=== PATIENT | female | born 1960 | race Caucasian/White ===

== ENCOUNTER → 2016-08-07 | Outpatient (CLI) | payer BC ==
[~2016-08-07] MED LIST: ASPI1TAB PO; ASPI81CH PO; CALCTAB88 PO; CALCTAB97 PO; DRIS50002 PO; FAMO1TAB11 PO; FLUO10CA8 PO; FLUO10CA9 PO; HAIR1TAB2 PO; LIPI10TA PO; LISI5TAB PO; LOPR50TA PO; METO50TA2 PO; MULTCAP PO; NO HISTORICAL MEDS; POTA10CA32 PO; VITA100T20 PO; VITA400C35 PO; VITA500046 PO; VITA500T3 PO; VITACHTA PO
== END ==
LOC: M SLEEP 08:16
PROVIDERS: ATTEND Nurse Practitioner Adult Health
DX: G47.30 Sleep apnea, unspecified (principal); R40.0 Somnolence

== ENCOUNTER 2016-08-16 10:38 | Emergency (ER) | payer BC ==
--- NOTE | 2016-08-16 12:49 | EDDOCDS ---
Nurse's Notes [facility] Name: Margo Hendrickson Age: 55 yrs Sex: Female : 1960 Arrival Date: 08/16/2016 Time: 10:38 Bed PR Private MD: Taqueria Peres Diagnosis: Pain in ankle and joints of foot-RIGHT Presentation: 08/16 10:47 Presenting complaint: Patient states: she has had a problem with her right ankle for kcs several weeks - anything she tries at home is not making it any better - no known injury. Adult Sepsis Screening: The patient does not have new or worsening altered mentation. Patient's respiratory rate is less than 22. Systolic blood pressure is greater than 100. Patient has a qSOFA score of 0- Negative Sepsis Screen. Suicide/Homicide risk assessment- the patient denies having any suicidal and/or homicidal ideations and does not present with any other emotional, behavioral or mental health complaints. Status: Patient is not a administrative services officer or dependent. Transition of care: patient was not received from another setting of care. 10:47 Acuity: SHAHAB Level 4 kcs 10:47 Method Of Arrival: Walkin/Carried/Asstd kcs Triage Assessment: 10:50 General: Appears comfortable, well developed, well nourished, well groomed, Behavior is kcs cooperative, pleasant. Pain: Location: right ankle Pain currently is 5 out of 10 on a pain scale. At worst was 7 out of 10 on a pain scale. HIV screening NA for this visit Offered previously. Neurological: Level of Consciousness is awake, alert. Respiratory: Airway is patent Respiratory effort is even, unlabored. Derm: Skin is intact, is healthy with good turgor, Skin is dry, Skin is normal. 12:48 Musculoskeletal: No deficits noted. rs3 Historical: - Allergies: No known drug Allergies; - Home Meds: 1. aspirin 81 mg Oral tab 1 tab once daily 2. atorvastatin 40 mg oral tab 1 tab once daily 3. Calcium Citrate + D 630 mg- 500 iu oral daily 4. ferrous fumarate oral once daily 5. Flintstones Tab Chew 100 mcg oral chew daily 6. fluoxetine 10 mg oral tab once daily 7. metoprolol tartrate 50 mg Oral tab 1 tab once daily 8. misoprostol 200 mcg oral tab daily 9. vitamin b12 500 mcg daily - PMHx: bleeding ulcers; CVA; Hepatitis; Hypertension; - PSHx: Cholecystectomy; Tonsillectomy; Gastric Bypass; - Social history: Smoking status: Patient states former smoker of tobacco. No barriers to communication noted, The patient speaks fluent Uzbek. - Family history: Not pertinent. - : The pt / caregiver states he / she is not on anticoagulants. Home medication list is obtained from the patient, [employer] import data. - Exposure Risk Screening:: None identified. Screenin:46 Screening information is obtained from the patient. Fall risk: No risks identified. rs3 Assistance ADL's: requires no assistance with activities of daily living. Abuse/DV Screen: The patient / caregiver reports he/she is: not in a situation that causes fear, pain or injury. Nutritional screening: No deficits noted. Advance Directives: Currently, there is no health care proxy. home support is adequate. Assessment: 12:46 General: Appears in no apparent distress. Pain: Complains of pain in medial aspect of rs3 right heel and heel of right foot. Awake, alert, oriented. Skin warm and dry. Moves all extremities. Bilateral breath sounds clear. Respirations unlabored. Abdomen soft, non-tender. No apparent distress. The patient / caregiver is instructed regarding the plan of care and ED course. Physical assessment to be completed by PA/ED. Vital Signs: 10:40 BP 142 / 94; Pulse 82; Resp 16; Temp 98.6; Pulse Ox 97% ; Weight 103.87 kg; Height 5 cmb ft. 7 in. (170.18 cm); Pain 6/10; 12:42 BP 154 / 91; Pulse 67; Resp 16; Temp 96.8(O); Pulse Ox 98% on R/A; Pain 5/10; jrd 10:40 Body Mass Index 35.87 (103.87 kg, 170.18 cm) cmb Vitals: 10:40 Log In Time: August 16, 2016 at 10:38. cmb ED Course: 10:39 Patient visited by Grace Sweet. cmb 10:39 Patient moved to Waiting cmb 10:40 Taqueria Peres MD is Private Physician. cmb 10:40 Patient moved to Pre RCE cmb 10:48 Triage Initiated kcs 11:35 Patient moved to Triage 3 jrd 11:59 Dian Lagos [facility]-C [facility]. dt4 11:59 Efren Rosado MD is Attending Physician. dt4 11:59 Patient visited by Dian Lagos PA-C. dt4 12:10 Patient moved to TR1 rs3 12:35 [facility] is Referral Physician. dt4 12:36 Patient moved to PR2 / mk4 12:42 Patient visited by Silverio Montez PCA. jrd 12:44 [facility] Payment Agreement was scanned into [employer] and attached to record. lg 12:47 No IV's were initiated during this patient's visit. No procedures done that require rs3 assistance. 12:48 Accompanied by Family Member, Patient has correct armband on for positive rs3 identification. Order Results: There are currently no results for this order. Outcome: 12:35 Discharge ordered by Provider. dt4 12:47 The following High Risk Discharge criteria are identified: None. Discharged to home rs3 ambulatory. Condition: stable. Discharge instructions given to patient, Instructed on discharge instructions, follow up and referral plans. medication usage, Demonstrated understanding of instructions, medications, Pt was receptive of discharge instructions/ teaching. No special radiology studies were completed. 12:47 Discharge Assessment: patient administered narcotics - no. The following High Risk rs3 Discharge criteria are identified: None. Discharged to home with family. Property :Personal belongings accompany Pt. 12:48 Patient left the ED. rs3 Signatures: Angelica Feldman RN RN [facility] Wes Simpson, Reg Reg Mercedes Hernández RN RN rs3 Grace Sweet Margaret, RN RN [facility] Dian Lagos PA-C PA-C dt4 Silverio Montez PCA PCA jrd [facility]
--- NOTE | 2016-08-16 12:49 | EDDOCDS ---
Physician Documentation [facility] Name: Marog Hendrickson Age: 55 yrs Sex: Female : 1960 Arrival Date: 08/16/2016 Time: 10:38 Bed PR Private MD: Taqueria Peres Disposition: 08/16/16 12:35 Discharged to Home/Self Care. Impression: Pain in ankle and joints of foot - RIGHT. - Condition is Stable. - Discharge Instructions: Ankle Pain. - Medication Reconciliation, Local Pharmacy Hours form. - Follow up: Emergency Department; When: As needed; Reason: Worsening of conditions. Follow up: [facility]; When: Tomorrow; Reason: Wound/Symptom Recheck, Recheck today's complaints, Continuance of care. - Problem is new. - Symptoms are unchanged. - Notes: THERE WAS SOME CHANGED OF ARTHRITIS AND A HEEL SPUR ON YOUR XRAYS TODAY, BUT NO OTHER ABNORMALITY. PLEASE FOLLOW UP WITH ORTHO TOMORROW AND LET THEM KNOW YOU WERE SEEN IN THE ER TODAY. Historical: - Allergies: No known drug Allergies; - Home Meds: 1. aspirin 81 mg Oral tab 1 tab once daily 2. atorvastatin 40 mg oral tab 1 tab once daily 3. Calcium Citrate + D 630 mg- 500 iu oral daily 4. ferrous fumarate oral once daily 5. Flintstones Tab Chew 100 mcg oral chew daily 6. fluoxetine 10 mg oral tab once daily 7. metoprolol tartrate 50 mg Oral tab 1 tab once daily 8. misoprostol 200 mcg oral tab daily 9. vitamin b12 500 mcg daily - PMHx: bleeding ulcers; CVA; Hepatitis; Hypertension; - PSHx: Cholecystectomy; Tonsillectomy; Gastric Bypass; - Social history: Smoking status: Patient states former smoker of tobacco. No barriers to communication noted, The patient speaks fluent Bermudian. - Family history: Not pertinent. - : The pt / caregiver states he / she is not on anticoagulants. Home medication list is obtained from the patient, [employer] import data. - Exposure Risk Screening:: None identified. Vital Signs: 08/16 10:40 BP 142 / 94; Pulse 82; Resp 16; Temp 98.6; Pulse Ox 97% ; Weight 103.87 kg / 228.99 cmb lbs; Height 5 ft. 7 in. (170.18 cm); Pain 6/10; 12:42 BP 154 / 91; Pulse 67; Resp 16; Temp 96.8(O); Pulse Ox 98% on R/A; Pain 5/10; jrd 10:40 Body Mass Index 35.87 (103.87 kg, 170.18 cm) cmb MDM: 12:10 Ankle, Complete Ordered. EDMS 12:31 Financial registration complete. lg 12:44 [facility] Payment Agreement was scanned into [employer] and attached to record. lg Signatures: Dispatcher Med[employer] EDMS Angelica Feldman RN RN kcs Wes Simpson, Reg Reg lg Mercedes Hernández RN RN rs3 Dian Lagos, SUNSHINE PAPraveena dt4 The chart was reviewed and I authenticate all verbal orders and agree with the evaluation and treatment provided.Attachments: 12:44 [facility] Payment Agreement lg MTDD
--- NOTE | 2016-08-16 17:27 | REP ---
4 view right ankle series 08/16/2016 Indication: Right ankle pain Findings: There is no acute fracture, subluxation, or dislocation in right ankle. Small amount of spurring is noted in medial malleolus. There is a large plantar calcaneal spur. Impression: no fracture or dislocation. Osteoarthritic changes as above Signed by Marisa Martinez MD 08/16/2016 05:18 P
--- NOTE | 2016-08-18 13:49 | EDDOCDS ---
Nurse's Notes [facility] Name: Margo Hendrickson Age: 55 yrs Sex: Female : 1960 Arrival Date: 08/16/2016 Time: 10:38 Bed PR Private MD: Taqueria Peres Diagnosis: Pain in ankle and joints of foot-RIGHT Presentation: 08/16 10:47 Presenting complaint: Patient states: she has had a problem with her right ankle for kcs several weeks - anything she tries at home is not making it any better - no known injury. Adult Sepsis Screening: The patient does not have new or worsening altered mentation. Patient's respiratory rate is less than 22. Systolic blood pressure is greater than 100. Patient has a qSOFA score of 0- Negative Sepsis Screen. Suicide/Homicide risk assessment- the patient denies having any suicidal and/or homicidal ideations and does not present with any other emotional, behavioral or mental health complaints. Status: Patient is not a travel services professional or dependent. Transition of care: patient was not received from another setting of care. 10:47 Acuity: SHAHAB Level 4 kcs 10:47 Method Of Arrival: Walkin/Carried/Asstd kcs Triage Assessment: 10:50 General: Appears comfortable, well developed, well nourished, well groomed, Behavior is kcs cooperative, pleasant. Pain: Location: right ankle Pain currently is 5 out of 10 on a pain scale. At worst was 7 out of 10 on a pain scale. HIV screening NA for this visit Offered previously. Neurological: Level of Consciousness is awake, alert. Respiratory: Airway is patent Respiratory effort is even, unlabored. Derm: Skin is intact, is healthy with good turgor, Skin is dry, Skin is normal. 12:48 Musculoskeletal: No deficits noted. rs3 Historical: - Allergies: No known drug Allergies; - Home Meds: 1. aspirin 81 mg Oral tab 1 tab once daily 2. atorvastatin 40 mg oral tab 1 tab once daily 3. Calcium Citrate + D 630 mg- 500 iu oral daily 4. ferrous fumarate oral once daily 5. Flintstones Tab Chew 100 mcg oral chew daily 6. fluoxetine 10 mg oral tab once daily 7. metoprolol tartrate 50 mg Oral tab 1 tab once daily 8. misoprostol 200 mcg oral tab daily 9. vitamin b12 500 mcg daily - PMHx: bleeding ulcers; CVA; Hepatitis; Hypertension; - PSHx: Cholecystectomy; Tonsillectomy; Gastric Bypass; - Social history: Smoking status: Patient states former smoker of tobacco. No barriers to communication noted, The patient speaks fluent Ukrainian. - Family history: Not pertinent. - : The pt / caregiver states he / she is not on anticoagulants. Home medication list is obtained from the patient, [employer] import data. - Exposure Risk Screening:: None identified. Screenin:46 Screening information is obtained from the patient. Fall risk: No risks identified. rs3 Assistance ADL's: requires no assistance with activities of daily living. Abuse/DV Screen: The patient / caregiver reports he/she is: not in a situation that causes fear, pain or injury. Nutritional screening: No deficits noted. Advance Directives: Currently, there is no health care proxy. home support is adequate. Assessment: 12:46 General: Appears in no apparent distress. Pain: Complains of pain in medial aspect of rs3 right heel and heel of right foot. Awake, alert, oriented. Skin warm and dry. Moves all extremities. Bilateral breath sounds clear. Respirations unlabored. Abdomen soft, non-tender. No apparent distress. The patient / caregiver is instructed regarding the plan of care and ED course. Physical assessment to be completed by PA/ED. Vital Signs: 10:40 BP 142 / 94; Pulse 82; Resp 16; Temp 98.6; Pulse Ox 97% ; Weight 103.87 kg; Height 5 cmb ft. 7 in. (170.18 cm); Pain 6/10; 12:42 BP 154 / 91; Pulse 67; Resp 16; Temp 96.8(O); Pulse Ox 98% on R/A; Pain 5/10; jrd 10:40 Body Mass Index 35.87 (103.87 kg, 170.18 cm) cmb Vitals: 10:40 Log In Time: August 16, 2016 at 10:38. cmb ED Course: 10:39 Patient visited by Grace Sweet. cmb 10:39 Patient moved to Waiting cmb 10:40 Taqueria Peres MD is Private Physician. cmb 10:40 Patient moved to Pre RCE cmb 10:48 Triage Initiated kcs 11:35 Patient moved to Triage 3 jrd 11:59 Dian Lagos PA-C is PHCP. dt4 11:59 Efren Rosado MD is Attending Physician. dt4 11:59 Patient visited by Dian Lagos PA-C. dt4 12:10 Patient moved to TR1 rs3 12:35 [facility] is Referral Physician. dt4 12:36 Patient moved to PR2 / mk4 12:42 Patient visited by Silverio Montez PCA. jrd 12:44 [facility] Payment Agreement was scanned into [employer] and attached to record. lg 12:47 No IV's were initiated during this patient's visit. No procedures done that require rs3 assistance. 12:48 Accompanied by Family Member, Patient has correct armband on for positive rs3 identification. 17:33 Ankle, Complete Returned. EDMO 08/17 10:16 T-Sheet-- Draft Copy was scanned into [employer] and attached to record. gb Order Results: Radiology Order: Ankle, Complete Test: Ankle, Complete REASON FOR EXAMINATION: right ankle pain; 4 view right ankle series 08/16/2016; ; Indication: Right ankle pain; ; Findings: There is no acute fracture, subluxation, or dislocation in right; ankle. Small amount of spurring is noted in medial malleolus. There is a large; plantar calcaneal spur.; ; Impression: no fracture or dislocation. Osteoarthritic changes as above; ; ; ; ; Signed by; Marisa Martinez MD 08/16/2016 05:18 P; Outcome: 08/16 12:35 Discharge ordered by Provider. dt4 12:47 The following High Risk Discharge criteria are identified: None. Discharged to home rs3 ambulatory. Condition: stable. Discharge instructions given to patient, Instructed on discharge instructions, follow up and referral plans. medication usage, Demonstrated understanding of instructions, medications, Pt was receptive of discharge instructions/ teaching. No special radiology studies were completed. 12:47 Discharge Assessment: patient administered narcotics - no. The following High Risk rs3 Discharge criteria are identified: None. Discharged to home with family. Property :Personal belongings accompany Pt. 12:48 Patient left the ED. rs3 Signatures: Dispatcher MedHost EDMS Angelica Feldman RN RN Traci Owen, Reg Reg gb Wes Simpson, Reg Reg lg Mercedes Hernández RN RN rs3 Grace Sweet cmb Krissy Zuluaga RN RN mk4 Dian Lagos, SUNSHINE PAEarnestC dt4 Silverio Montez, KAVYA [employer]UOR[employer]CENT LAMP REPLACER jrd Chart Complete MTDD
--- NOTE | 2016-08-18 13:49 | EDDOCDS ---
Physician Documentation [facility] Name: Margo Hendrickson Age: 55 yrs Sex: Female : 1960 Arrival Date: 08/16/2016 Time: 10:38 Bed PR Private MD: Taqueria Peres Disposition: 08/16/16 12:35 Discharged to Home/Self Care. Impression: Pain in ankle and joints of foot - RIGHT. - Condition is Stable. - Discharge Instructions: Ankle Pain. - Medication Reconciliation, Local Pharmacy Hours form. - Follow up: Emergency Department; When: As needed; Reason: Worsening of conditions. Follow up: [facility]; When: Tomorrow; Reason: Wound/Symptom Recheck, Recheck today's complaints, Continuance of care. - Problem is new. - Symptoms are unchanged. - Notes: THERE WAS SOME CHANGED OF ARTHRITIS AND A HEEL SPUR ON YOUR XRAYS TODAY, BUT NO OTHER ABNORMALITY. PLEASE FOLLOW UP WITH ORTHO TOMORROW AND LET THEM KNOW YOU WERE SEEN IN THE ER TODAY. Historical: - Allergies: No known drug Allergies; - Home Meds: 1. aspirin 81 mg Oral tab 1 tab once daily 2. atorvastatin 40 mg oral tab 1 tab once daily 3. Calcium Citrate + D 630 mg- 500 iu oral daily 4. ferrous fumarate oral once daily 5. Flintstones Tab Chew 100 mcg oral chew daily 6. fluoxetine 10 mg oral tab once daily 7. metoprolol tartrate 50 mg Oral tab 1 tab once daily 8. misoprostol 200 mcg oral tab daily 9. vitamin b12 500 mcg daily - PMHx: bleeding ulcers; CVA; Hepatitis; Hypertension; - PSHx: Cholecystectomy; Tonsillectomy; Gastric Bypass; - Social history: Smoking status: Patient states former smoker of tobacco. No barriers to communication noted, The patient speaks fluent Micronesian. - Family history: Not pertinent. - : The pt / caregiver states he / she is not on anticoagulants. Home medication list is obtained from the patient, [employer] import data. - Exposure Risk Screening:: None identified. Vital Signs: 08/16 10:40 BP 142 / 94; Pulse 82; Resp 16; Temp 98.6; Pulse Ox 97% ; Weight 103.87 kg / 228.99 cmb lbs; Height 5 ft. 7 in. (170.18 cm); Pain 6/10; 12:42 BP 154 / 91; Pulse 67; Resp 16; Temp 96.8(O); Pulse Ox 98% on R/A; Pain 5/10; jrd 10:40 Body Mass Index 35.87 (103.87 kg, 170.18 cm) cmb MDM: 12:10 Ankle, Complete Ordered. EDMS 12:31 Financial registration complete. lg 12:44 [facility] Payment Agreement was scanned into [employer] and attached to record. lg 08/17 10:16 T-Sheet-- Draft Copy was scanned into [employer] and attached to record. gb Signatures: Dispatcher [employer] EDMS Angelica Feldman RN RN kcs Traci Choudhary, Reg Reg gb Wes Simpson, Reg Reg lg Mercedes Hernández RN RN rs3 Dian Lagos, SUNSHINE PAPraveena dt4 The chart was reviewed and I authenticate all verbal orders and agree with the evaluation and treatment provided.Attachments: 08/16 12:44 [facility] Payment Agreement lg 08/17 10:16 T-Sheet-- Draft Copy gb Chart Complete MTDD
--- NOTE | 2016-08-18 13:49 | EDDOCDS ---
Physician Documentation [facility] Name: Margo Hendrickson Age: 55 yrs Sex: Female : 1960 Arrival Date: 08/16/2016 Time: 10:38 Bed PR Private MD: Taqueria Peres Disposition: 08/16/16 12:35 Discharged to Home/Self Care. Impression: Pain in ankle and joints of foot - RIGHT. - Condition is Stable. - Discharge Instructions: Ankle Pain. - Medication Reconciliation, Local Pharmacy Hours form. - Follow up: Emergency Department; When: As needed; Reason: Worsening of conditions. Follow up: [facility]; When: Tomorrow; Reason: Wound/Symptom Recheck, Recheck today's complaints, Continuance of care. - Problem is new. - Symptoms are unchanged. - Notes: THERE WAS SOME CHANGED OF ARTHRITIS AND A HEEL SPUR ON YOUR XRAYS TODAY, BUT NO OTHER ABNORMALITY. PLEASE FOLLOW UP WITH ORTHO TOMORROW AND LET THEM KNOW YOU WERE SEEN IN THE ER TODAY. Historical: - Allergies: No known drug Allergies; - Home Meds: 1. aspirin 81 mg Oral tab 1 tab once daily 2. atorvastatin 40 mg oral tab 1 tab once daily 3. Calcium Citrate + D 630 mg- 500 iu oral daily 4. ferrous fumarate oral once daily 5. Flintstones Tab Chew 100 mcg oral chew daily 6. fluoxetine 10 mg oral tab once daily 7. metoprolol tartrate 50 mg Oral tab 1 tab once daily 8. misoprostol 200 mcg oral tab daily 9. vitamin b12 500 mcg daily - PMHx: bleeding ulcers; CVA; Hepatitis; Hypertension; - PSHx: Cholecystectomy; Tonsillectomy; Gastric Bypass; - Social history: Smoking status: Patient states former smoker of tobacco. No barriers to communication noted, The patient speaks fluent Liberian. - Family history: Not pertinent. - : The pt / caregiver states he / she is not on anticoagulants. Home medication list is obtained from the patient, [employer] import data. - Exposure Risk Screening:: None identified. Vital Signs: 08/16 10:40 BP 142 / 94; Pulse 82; Resp 16; Temp 98.6; Pulse Ox 97% ; Weight 103.87 kg / 228.99 cmb lbs; Height 5 ft. 7 in. (170.18 cm); Pain 6/10; 12:42 BP 154 / 91; Pulse 67; Resp 16; Temp 96.8(O); Pulse Ox 98% on R/A; Pain 5/10; jrd 10:40 Body Mass Index 35.87 (103.87 kg, 170.18 cm) cmb MDM: 12:10 Ankle, Complete Ordered. EDMS 12:31 Financial registration complete. lg 12:44 [facility] Payment Agreement was scanned into [employer] and attached to record. lg 08/17 10:16 T-Sheet-- Draft Copy was scanned into [employer] and attached to record. gb Signatures: Dispatcher [employer] EDMS Angelica Feldman RN RN kcs Traci Choduhary, Reg Reg gb Wes Simpson, Reg Reg lg Mercedes Hernández RN RN rs3 Dian Lagos, SUNSHINE PAPraveena dt4 The chart was reviewed and I authenticate all verbal orders and agree with the evaluation and treatment provided.Attachments: 08/16 12:44 [facility] Payment Agreement lg 08/17 10:16 T-Sheet-- Draft Copy gb Chart Complete MTDD
== END 2016-08-16 12:48 | disposition home or self-care (01) ==
LOC: M ED 10:38
DX: M25.571 Pain in right ankle and joints of right foot (principal); M19.071 Primary osteoarthritis, right ankle and foot; M25.774 Osteophyte, right foot; I10 Essential (primary) hypertension; K75.9 Inflammatory liver disease, unspecified; K27.4 Chronic or unspecified peptic ulcer, site unspecified, with hemorrhage; Z87.891 Personal history of nicotine dependence; Z86.73 Personal history of transient ischemic attack (TIA), and cerebral infarction without residual deficits; Z79.899 Other long term (current) drug therapy; Z79.82 Long term (current) use of aspirin

== ENCOUNTER → 2016-10-23 | Outpatient (CLI) | payer BC ==
[~2016-10-23] MED LIST changes: +ASPI81TA85 PO; +ATOR40TA PO; +IRON50TA PO
--- NOTE | 2016-10-23 11:25 | REP ---
Chest two views HISTORY: Sleep apnea Comparison: 03/16/2016 The lungs are clear. The heart is normal in size. The pulmonary vasculature is normal in appearance. The bony structure is intact. IMPRESSION: No acute disease. Signed by Mckay Snell MD 10/23/2016 11:17 A
[2016-10-23 12:17] LABS: MEAN CORPUSCULAR HEMOGLOBIN 26.3 pg (27.0-33.0); MEAN CORPUSCULAR VOLUME 82.3 fl (80.0-96.0); RED CELL DISTRIBUTION WIDTH 13.6 % (11.5-14.5); WHITE BLOOD COUNT 5.2 K/mm3 (4.0-10.0)
[2016-10-23 12:22] LABS: INR 0.99
[2016-10-23 12:29] LABS: ALBUMIN 3.7 GM/DL (3.2-5.2); ALBUMIN/GLOBULIN RATIO 1.28 (1.00-1.93); ALKALINE PHOSPHATASE 132 U/L (45-117); ALT/SGPT 41 U/L (12-78); ANION GAP 6 MEQ/L (8-16); AST/SGOT 24 U/L (15-37); BILIRUBIN,TOTAL 0.4 MG/DL (0.2-1.0); BLOOD UREA NITROGEN 11 MG/DL (7-18); CALCIUM LEVEL 9.1 MG/DL (8.5-10.1); CARBON DIOXIDE LEVEL 29 MEQ/L (21-32); CHLORIDE LEVEL 107 MEQ/L (98-107); CREATININE FOR GFR 0.74 MG/DL (0.55-1.02); GLOMERULAR FILTRATION RATE > 60.0 (>51); GLUCOSE, FASTING 98 MG/DL (70-105); POTASSIUM SERUM 4.2 MEQ/L (3.5-5.1); SODIUM LEVEL 142 MEQ/L (136-145); TOTAL PROTEIN 6.6 GM/DL (6.4-8.2)
--- NOTE | 2016-10-23 22:20 | ECGEPIP ---
Stationary ECG Study [facility] Test Date: 2016-10-23 Pat Name: MICH DAVIS Department: Room: - Gender: F [employer]: PHILIPP : 1960 Requested By: Ina Barlow Order Number: [id number] Reading MD: Tasha Starkey Measurements Intervals [place] Rate: 57 P: 39 IN: 170 QRS: 15 QRSD: 110 T: 48 QT: 400 QTc: 392 Interpretive Statements SINUS BRADYCARDIA SIMILAR 03/16/16 Electronically Signed On 10-23-2016 22:19:55 EDT by Tasha Starkey
== END ==
LOC: M ADMPAT 10:22
PROVIDERS: ATTEND Orthopaedic Surgery
DX: M25.561 Pain in right knee (principal); I10 Essential (primary) hypertension; K76.0 Fatty (change of) liver, not elsewhere classified; Z86.73 Personal history of transient ischemic attack (TIA), and cerebral infarction without residual deficits; Z79.899 Other long term (current) drug therapy

== ENCOUNTER 2016-11-05 08:05 | Emergency (ER) | payer BC ==
[~2016-11-05] VITALS: Ht 170.2 cm; Wt 103.4 kg
[2016-11-05] MEDS ORDERED: VITA50003 PO (08:36)
[2016-11-05] MEDS ORDERED: BACT800T5 PO (08:36)
[2016-11-05] MEDS ORDERED: VITAPOW41 XX (08:36)
[2016-11-05] MEDS ORDERED: [UNRECOGNIZED DRUG - CODE] XX (08:36)
[2016-11-05] MEDS ORDERED: VITA100L PO (08:36)
[2016-11-05] MEDS ORDERED: SUCR1TA PO (08:36)
[2016-11-05] MEDS ORDERED: OMEP40CA2 PO (08:36)
--- NOTE | 2016-11-05 10:26 | REP ---
CHEST, TWO VIEWS: COMPARISON: 10/23/2016 There is no evidence of acute infiltrate. No pleural effusion is seen. The heart is normal in size. The mediastinal silhouette is unremarkable. The visualized osseous structures are intact. IMPRESSION: No acute pulmonary disease. Signed by Eleazar Byrnes MD 11/05/2016 03:53 P
[2016-11-05 11:19] VITALS: BP 130/69
== END 2016-11-05 11:54 | disposition home or self-care (01) ==
LOC: M ED 09:35
DX: B34.9 Viral infection, unspecified (principal)

== ENCOUNTER 2016-11-06 12:15 | Inpatient (IN) | payer BC ==
[~2016-11-06] VITALS: Ht 170.2 cm; Wt 103.9 kg
[~2016-11-06 12:15] MED LIST changes: +BACT800T5 PO; +OMEP40CA2 PO; +SUCR1TA PO; +VITA100L PO; +VITA50003 PO; +VITAPOW41 XX; +[UNRECOGNIZED DRUG - CODE] XX
--- NOTE | 2016-12-13 17:03 | HPE ---
DATE OF ADMISSION: 12/19/2016 HISTORY OF PRESENT ILLNESS: This is a pleasant female with continuing symptomatic right knee osteoarthritis. She has consented for right total knee arthroplasty per Dr. Cain Middleton. Apparently her surgery was rescheduled. She has not had any significant changes since being cleared by Dr. Koenig on 12/10/2016. I did review his documentation. ALLERGIES: None known to drugs. MEDICAL PROBLEM LIST: Includes symptomatic right knee osteoarthritis, hypertension, hyperlipidemia, depression, migraine, CVA with minimal residual paresthesia 05/2013, atherosclerotic cardiovascular disease (ASCD) 10-year risk 3.6 from 03/2016, morbid obesity status post Peggy-en-Y 01/2015, metabolic syndrome, chronic endocervicitis, she notes being Factor V Leiden positive. SURGICAL HISTORY: Pertinent for laparoscopic cholecystectomy with repair of incisional hernia 01/2006, removal of umbilicus secondary to endometriosis 1974, Peggy-en-Y laparoscopic with liver biopsy Dr. Thompson with pathology report positive for hepatitis, viral hepatitis serology negative and other laboratories evaluated for chronic liver function tests (LFTs) were nondiagnostic, colonoscopy 15 years ago, excision of bleeding lesion of umbilicus, tonsillectomy, EGD two ulcers gastrojejunal anastomosis 12/2015. FAMILY HISTORY: Positive for pancreatic cancer, congestive heart failure (CHF), myocardial infarction (NC), diabetes mellitus type 2, coronary artery disease, ovarian cancer, hypertension. SOCIAL HISTORY: She is former social smoker that quit to 2013. She has 1-2 drinks on a typical day intermittently, denies illicit drugs. MEDICATION LIST: Includes: - fluoxetine 10 mg one orally daily - vitamin D 50,000 units one capsule orally weekly - atorvastatin calcium 40 mg one tablet orally once a day - vitamin B12 1000 one tablet orally once a day - Flintstones complete 60 mg chewable one tablet orally once a day - taking aspirin 81 mg chewable one tablet orally once a day - [facility] vitamin E 400 units capsule one capsule orally once a day - Lopressor 50 mg tablet orally once a day - omeprazole 40 mg capsule delayed release one capsule orally once a day - iron 325 (65 FE mg tablet one tablet orally once a day - Carafate 1 gram tablet one tablet on empty stomach orally twice a day - bisoprolol 200 mcg tablet one tablet with food orally four times a day - Cytotec PHYSICAL EXAMINATION: Height 66.25 inches, weight 225, temperature 97.8. She is a pleasant, obese female. She is in no acute distress. Alert and oriented times three. Mood and affect are appropriate. She is ambulating with favoring left lower extremity. No gross antalgia about the right lower extremity. Skin temperature, color, sensory and motor within normal limits. Not effused, ecchymotic or erythematous. Not hot to touch. Knee range of motion is with crepitance to flexion and extension. Positive medial joint line tenderness. PFJ is congruent, static, dynamic. No popliteal fossa, mass or pain. Hip range of motion is not irritable, limited through internal and external range of motion. Normocephalic. Chest rises symmetrically. Lungs clear to auscultation. Negative murmur, gallops or rubs. Bowel sounds times four, soft, nontender. Labs were reviewed. Nasal and sinus culture showed heavy Moraxella catarrhalis and the patient was started on Bactrim DS double-strength times five days. Urinalysis was unremarkable. Anion gap 6. Alkaline phosphatase 132. Mean corpuscular hemoglobin 26.3. Chest x-ray no acute cardiopulmonary disease as read by Dr. Snell through [facility] test [id number]. EKG read by Dr. Tasha Starkey shows sinus bradycardia. IMPRESSION: 1. Symptomatic right knee osteoarthritis. 2. The patient consented for right total knee arthroplasty per Dr. Cain Middleton. 3. Medical optimization per Dr. Koenig. 4. On-call the operating room (OR) 2 grams IV Kefzol in OR. 5. Sequential compression device (SCD) and thromboembolism deterrents (TEDs) in OR. 6. The patient noted that she does have Factor V Leiden. 7. She is going to take Bactrim DS times 5 days per heavy Moraxella catarrhalis on nasal and sinus culture. The patient understands and agrees with the plan. IZABELA
[2016-12-19] MEDS ORDERED: LR 1,000 ML IV ONE (11:00)
[2016-12-19] MEDS ORDERED: LR 1,000 ML IV SCH ×2 (11:00→16:45)
[2016-12-19] MEDS ORDERED: ACETAMINOPHEN 500 MG TAB PO ONE (11:15)
[2016-12-19] MEDS ORDERED: LOPR1TAB6 PO (11:23)
[2016-12-19] MEDS ORDERED: METOPROLOL TART 25 MG TABLET As Ordered ONE (11:30)
[2016-12-19] MEDS ORDERED: METOPROLOL TART 25 MG TABLET PO ONE (11:45)
[2016-12-19] MEDS ORDERED: fentaNYL 100 MCG/2 ML INJECTION (J3010) As Ordered ONE ×3 (12:13→14:37)
[2016-12-19] MEDS ORDERED: MIDAZOLAM INJ 2 MG/2 ML VIAL (J2250) As Ordered ONE ×2 (12:13→14:37)
[2016-12-19] MEDS ORDERED: ceFAZolin 1GM INJ (J0690) As Ordered ONE (12:21)
[2016-12-19] MEDS ORDERED: BUPIVACAINE HCL 0.5% 10 ML VIAL As Ordered ONE (12:47)
[2016-12-19] MEDS ORDERED: ROPIvacaine 0.5% 30 ML INJECTION (J2795) As Ordered ONE (12:47)
[2016-12-19] MEDS ORDERED: TRANEXAMIC ACID 100 MG/ML 10ML VIAL As Ordered ONE (12:49)
[2016-12-19] MEDS ORDERED: EPINEPHrine INJ 1 MG/ML 1ML VIAL/AMP As Ordered ONE (12:49)
[2016-12-19] MEDS ORDERED: fentaNYL 100 MCG/2 ML INJECTION (J3010) IV ONE (14:00)
[2016-12-19] MEDS ORDERED: MIDAZOLAM INJ 2 MG/2 ML VIAL (J2250) IV ONE (14:00)
[2016-12-19] MEDS ORDERED: ROPIvacaine 0.5% 30 ML INJECTION (J2795) ONE (14:27)
[2016-12-19] MEDS ORDERED: LIDOCAINE 1% MDV 20ML VIAL ONE (14:27)
[2016-12-19] MEDS ORDERED: dexameTHASONE 10 MG/1 ML VIAL PRES.FREE (J1100) ONE (14:27)
[2016-12-19] MEDS ORDERED: PROPOFOL 500 MG/50 ML VIAL As Ordered ONE (14:37)
[2016-12-19] MEDS ORDERED: METOCLOPRAMIDE INJ 10MG/2ML VIAL (J2765) As Ordered ONE (14:53)
[2016-12-19] MEDS ORDERED: dexameTHASONE 4 MG/ML 1ML VIAL (J1100) As Ordered ONE (14:53)
[2016-12-19] MEDS ORDERED: ONDANSETRON 4MG/2ML VIAL (J2405) As Ordered ONE (14:53)
[2016-12-19] MEDS ORDERED: LIDOCAINE 2% INJ 100 MG/5 ML SDV (FOR ANES.) As Ordered ONE (15:09)
[2016-12-19] MEDS ORDERED: FLEET ENEMA PR PRN (16:45)
[2016-12-19] MEDS ORDERED: ACETAMINOPHEN TAB 650MG DOSE (2X325MG) PO PRN (16:45)
[2016-12-19] MEDS ORDERED: MORPHINE 2 MG/ML 1ML SYRINGE IV PRN (16:45)
[2016-12-19] MEDS ORDERED: ONDANSETRON 4MG/2ML VIAL (J2405) IV PRN ×2 (16:45→18:00)
[2016-12-19] MEDS ORDERED: fentaNYL 100 MCG/2 ML INJECTION (J3010) IV PRN (16:45)
[2016-12-19] MEDS ORDERED: PERCOCET 5MG/325MG TAB PO PRN (16:45)
[2016-12-19 18:00] VITALS: BP 123/83
[2016-12-19] MEDS ORDERED: diphenhydrAMINE INJ 50MG/ML VIAL (J1200) IV PRN (18:00)
[2016-12-19] MEDS ORDERED: EPIDURAL/PCA KEYS XX PRN (18:00)
[2016-12-19] MEDS ORDERED: NALOXONE INJ 0.4 MG/1 ML VIAL (J2310) IV PRN (18:00)
[2016-12-19] MEDS ORDERED: NALBUPHINE HCL 10 MG/ML AMP (J2300) IV PRN (18:00)
[2016-12-19] MEDS ORDERED: MORPHINE 1MG/ML IN 0.9% NACL 100ML IV BAG IV PRN (18:00)
[2016-12-19 18:30] VITALS: BP 129/78
[2016-12-19] MEDS ORDERED: traMADol 50 MG TAB PO PRN ×2 (18:30)
[2016-12-19] MEDS: LR 1,000 ML IV SCH (18:48)
[2016-12-19 19:30] VITALS: BP 115/65
[2016-12-19 20:30] VITALS: BP 122/72
--- NOTE | 2016-12-19 20:35 | IPNPDOC ---
Subjective Date Seen The patient was seen on 12/19/16. Subjective Chief Complaint/HPI The patient is a 56-year-old female admitted with a reason for visit of Right Knee Arthritis. Events since last encounter patient status post right total knee arthroplasty elective for advanced osteoarthritis. surgery was uncomplicated, no complaints at present , no chest pain or sob , no abdominal pain , nausea or vomiting Objective Physical Examination General Exam: Positive: Alert, No Acute Distress Eye Exam: Positive: PERRLA, Conjunctiva & lids normal, EOMI, Negative: Sclera icteric ENT Exam: Positive: Atraumatic, Mucous membr. moist/pink, Pharynx Normal Neck Exam: Positive: Supple, Negative: JVD, thyromegaly Chest Exam: Positive: Clear to auscultation, Normal air movement Heart Exam: Positive: Rate Normal, Regular Rhythm, Normal S1, Normal S2, Negative: Murmurs, Rubs Abdomen Exam: Positive: Normal bowel sounds, Soft, Negative: Tenderness, Hepatospenomegaly Extremity Exam: Positive: Normal pulses, Negative: Clubbing, Cyanosis, Edema Assessment /Plan Problems (1) S/P total knee arthroplasty Problem Text: Patient to be followed by Dr Sarmiento from 12/20/16 pain control and dvt prophylaxis as per ortho protocol (2) Hypertension Status: Chronic Problem Text: continue metoprolol (3) Hyperlipidemia Status: Chronic Problem Text: continue statin (4) CAD (coronary artery disease) Status: Chronic (5) Depression Status: Chronic Problem Text: continue home meds (6) H/O: stroke with residual effects Status: Chronic (7) Gastric bypass status for obesity Status: Chronic Problem Text: continue omeprazole and sucralfate. (8) Migraine Status: Chronic Plan/VTE VTE Prophylaxis Ordered?: Yes VS, I&O, 24H, Fishbone Vital Signs/I&O Vital Signs Date Time Temp Pulse Resp B/P (MAP) Pulse Ox O2 Delivery O2 Flow Rate FiO2 12/19/16 17:05 55 18 131/72 (91) 98 Nasal Cannula 2 12/19/16 16:50 97.2 YASHIRA WARD MD December 19, 2016 17:40
[2016-12-19] MEDS ORDERED: WARFARIN SOD 5 MG TAB PO SCH (21:00)
[2016-12-19] MEDS: SUCRALFATE 1 GM TAB PO SCH (21:03)
[2016-12-19] MEDS: BACTRIM 160MG/800MG DS TAB PO SCH (21:03)
[2016-12-19 21:30] VITALS: BP 125/66
[2016-12-19 22:30] VITALS: BP 121/78
[2016-12-20 02:30] VITALS: BP 132/65
[2016-12-20] MEDS: LR 1,000 ML IV SCH (05:15)
[2016-12-20 06:00] VITALS: BP 121/74
--- NOTE | 2016-12-20 06:24 | RO ---
DATE OF PROCEDURE: 12/19/2016 PREPROCEDURE DIAGNOSIS: Right knee valgus degenerative arthritis. POSTPROCEDURE DIAGNOSIS: Right knee valgus degenerative arthritis. PROCEDURE: Right total knee arthroplasty using a size 4 narrow cruciate retaining femoral component and a size 3 tibial tray with 12.5 mm rotating platform polyethylene insert, 35 mm polyethylene button. All the components were cemented. Prosthesis made by [employer]. It was a PFC knee. SURGEON: Dr. Ina Middleton. LOCOMOTIVE ENGINEER: Jenrigoberto Castillo. ANESTHESIA: Spinal with right femoral nerve block. COMPLICATIONS: None. SPECIMENS: The joint surface. ESTIMATED BLOOD LOSS: Less than 20 mL. PROCEDURE: After antibiotics were given intravenously preoperatively and successful spinal and right femoral nerve block and then a spinal anesthetic was induced, a tourniquet was placed on the right upper thigh and not inflated and the right lower extremity was prepped and draped in the usual sterile fashion. The leg was elevated and after appropriate time out, the tourniquet was inflated and then a longitudinal incision was made for medial parapatellar approach to the knee. Bovie cautery was used to coagulate crossing vessels. Subperiosteal dissection around the proximal medial portion of the tibia and the proximal lateral portion of the tibia was provided and then a large loose body was noted in the anterior medial compartment. There was a very large loose body noted at the patellofemoral articulation. It was more of a disc shaped probably 3 cm diameter wafer of bone that was noted in the patellofemoral joint or in the lateral gutter that was removed. Patella and flexed and the knee. ACL was removed. Drill was placed down the center of the femoral canal followed by distal femoral cutting jig set for 5 degree valgus cut at 10 mm resection level for a right knee. The block was pinned into position. Distal femoral cut performed. The AP sizer jig measured for a size 4 prosthesis. The 3 degree external rotation block was drilled and then the 4-in-block applied. Anterior posterior chamfer cuts performed and taking great care to protect the surrounding soft tissues. We then exposed the proximal tibia and used the extramedullary guide to be sure that we appeared to be aligned and parallel to the mechanical axis of the tibia. We referenced out the medial tibial condyle and measured it 4 mm from that level. Secondary check with extramedullary [place] confirmed that it appeared to be parallel to the mechanical axis, thus the proximal tibial osteotomy was then performed. We then placed the alignment senior corporate recruiter laterally and performed a completion medial meniscectomy. Debridement of the posterior medial osteophytes. We then placed the alignment senior corporate recruiter medially and performed a completion lateral meniscectomy, debridement of posterior lateral osteophytes. The spacer block was sized. The 10 was a bit too loose, the 12.5 seemed the most appropriate, thus I felt the extensor flexor spaces ultimately were satisfactory and symmetric. I then exposed the proximal tibia sized for a #3 tray which was pinned into position followed by the reamer and broach followed by the trial polyethylene, then a femoral trial was placed and brought the knee into extension. She had very good stability to varus valgus stress testing both in flexion and extension. We then everted the patella with the knee in extension, performed a patellar osteotomy. She had a significant amount of dishing of the patella at the lateral facet. The saw blade just barely skirted the small dish but I felt that was small enough that cement should suffice to fill that defect. The size for a 35 patellar button, the lug holes were drilled, the trial prosthesis placed and patellofemoral tracking was anatomic. We drilled the lug holes for the femur, then removed all the trials. My food service assistant, Mrs. Jen Castillo mixed the cement on the back table as I prepared the bony surfaces for cementing with a copious amount of pulsatile lavage irrigant solution. She was also critical to the success of this difficult procedure by helping to manipulate the knee, help with soft tissue retraction, help to prepare the patient, help to close the wound, amongst many other tasks. Once the cement has been mixed and all the bony surfaces were thoroughly dried, I cemented the tibial tray and removed excess cement, placed the polyethylene, then cemented the femoral component, removed excess cement, brought the knee into extension and then cemented the patella and held it with a clamp and then removed all the excess cement and held that position in extension until the cement had hardened. While we were awaiting, we copiously pulsatile lavage irrigated out the knee joint once again and then instilled the Tranexamic acid. We then began closing the apex of the arthropathy with two #1 PDS sutures, the medial parapatellar border was closed with a #1 PDS suture, then a running double arm #1 Stratafix was used to close the rest of the capsule. Flexion and extension after closure of the capsule showed it was good and secure with excellent patellofemoral tracking and excellent range of motion. We let the tourniquet down after the capsule had been closed, irrigated between layers, closed the deep subdermal tissues with interrupted #2-0 PDS suture. The PainBuster was passed after we closed the arthrotomy. Then the skin was closed with oxana covered by Adaptic dry sterile bulky dressing. She was then transferred to the recovery room in stable condition. There were no intraoperative complications.
[2016-12-20] MEDS ORDERED: ONDANSETRON 4 MG TAB (S0181) PO PRN (06:45)
[2016-12-20] MEDS ORDERED: PERCOCET 5MG/325MG TAB PO PRN (06:45)
[2016-12-20 06:55] LABS: MEAN CORPUSCULAR HEMOGLOBIN 26.8 pg (27.0-33.0); MEAN CORPUSCULAR HGB CONC 31.6 g/dl (32.0-36.5); MEAN CORPUSCULAR VOLUME 84.9 fl (80.0-96.0); RED CELL DISTRIBUTION WIDTH 14.2 % (11.5-14.5); WHITE BLOOD COUNT 9.6 K/mm3 (4.0-10.0)
[2016-12-20 06:58] LABS: INR 1.07
[2016-12-20 07:10] LABS: ANION GAP 6 MEQ/L (8-16); BLOOD UREA NITROGEN 9 MG/DL (7-18); CALCIUM LEVEL 9.2 MG/DL (8.5-10.1); CARBON DIOXIDE LEVEL 27 MEQ/L (21-32); CHLORIDE LEVEL 108 MEQ/L (98-107); CREATININE FOR GFR 0.68 MG/DL (0.55-1.02); GLOMERULAR FILTRATION RATE > 60.0 (>51); GLUCOSE, FASTING 122 MG/DL (70-105); POTASSIUM SERUM 4.7 MEQ/L (3.5-5.1); SODIUM LEVEL 141 MEQ/L (136-145)
[2016-12-20] MEDS: MIRALAX *UNIT DOSE* 17GM PACKET PO SCH (09:00)
[2016-12-20] MEDS: OMEPRAZOLE 20 MG CAP PO SCH (09:05)
[2016-12-20] MEDS: SUCRALFATE 1 GM TAB PO SCH ×4 (09:05→22:27)
[2016-12-20] MEDS: ATORVASTATIN 20 MG TAB PO SCH (09:05)
[2016-12-20] MEDS: MOM 30ML SUSPENSION UDC PO SCH (09:05)
[2016-12-20] MEDS: SENOKOT S TAB PO SCH ×2 (09:06→22:27)
[2016-12-20] MEDS: FLUoxetine 10 MG CAP PO SCH (09:06)
[2016-12-20] MEDS: METOPROLOL TART 50 MG TAB PO SCH (09:06)
[2016-12-20] MEDS: BACTRIM 160MG/800MG DS TAB PO SCH ×2 (09:06→22:27)
--- NOTE | 2016-12-20 10:21 | REP ---
Clinical: Status post arthroplasty. Technique: AP and cross-table lateral views. Findings: The patient is status post right knee replacement with normal positioning and appearance to the femoral and tibial components. Overlying postsurgical changes appreciated. Impression: Satisfactory right knee replacement radiographs. Signed by Sinan Wheatley MD 12/20/2016 10:13 A
[2016-12-20] MEDS: PERCOCET 5MG/325MG TAB PO PRN ×3 (10:51→23:34)
[2016-12-20 14:00] VITALS: BP 118/73
--- NOTE | 2016-12-20 15:18 | IPNPDOC ---
Subjective Date Seen The patient was seen on 12/20/16. Subjective Chief Complaint/HPI The patient is a 56-year-old female admitted with a reason for visit of Right Knee Arthritis. General: Denies: Chills, Night Sweats Constitutional: Denies: Chills, Fever Eyes: Denies: Pain, Vision change ENT: Denies: Head Aches, Ear Pain Skin: Denies: Rash, Lesions Pulmonary: Denies: Dyspnea, Cough Cardiovascular: Denies: Chest Pain, Palpitations Gastrointestinal: Denies: Nausea, Vomiting Genitourinary: Denies: Dysuria, Frequency Hematologic: Denies: Bruising, Bleeding Excessively Objective Physical Examination General Exam: Positive: Alert, No Acute Distress Eye Exam: Positive: PERRLA, Conjunctiva & lids normal, EOMI, Negative: Sclera icteric ENT Exam: Positive: Atraumatic, Mucous membr. moist/pink, Pharynx Normal Neck Exam: Positive: Supple, Negative: JVD, thyromegaly Chest Exam: Positive: Clear to auscultation, Normal air movement Heart Exam: Positive: Rate Normal, Regular Rhythm, Normal S1, Normal S2, Negative: Murmurs, Rubs Abdomen Exam: Positive: Normal bowel sounds, Soft, Negative: Tenderness, Hepatospenomegaly Extremity Exam: Positive: Normal pulses, Other (Right Knee noted to be wrapped in surgical dressing. Range of motion limited secondary to recent surgery. Neurovascularly intact distally.), Negative: Clubbing, Cyanosis, Edema Assessment /Plan Problems (1) S/P total knee arthroplasty Problem Text: Patient states that she is resting comfortably and that her pain is well controlled We will defer pain management and DVT prophylaxis as per the primary orthopedic service. (2) Hypertension Status: Chronic Response to Treatment: Stable Problem Text: cont metoprolol (3) Hyperlipidemia Status: Chronic Response to Treatment: Stable Problem Text: continue statin (4) CAD (coronary artery disease) Status: Chronic Problem Text: Continue statin and metoprolol (5) Depression Status: Chronic Response to Treatment: Stable Problem Text: continue home meds (6) H/O: stroke with residual effects Status: Chronic Response to Treatment: Stable (7) Gastric bypass status for obesity Status: Chronic Problem Text: continue omeprazole and sucralfate. (8) Migraine Status: Chronic Response to Treatment: Stable Plan/VTE VTE Prophylaxis Ordered?: Yes VS, I&O, 24H, Eneida Vital Signs/I&O Vital Signs Date Time Temp Pulse Resp B/P (MAP) Pulse Ox O2 Delivery O2 Flow Rate FiO2 12/20/16 14:46 14 12/20/16 09:06 58 121/74 12/20/16 08:00 Room Air 12/20/16 06:00 97.5 96 12/19/16 17:05 2 I&O- Last 24 Hours up to 6 AM 12/20/16 05:59 Intake Total 2170 ml Output Total 850 ml Balance 1320 ml Laboratory Data 24H LABS Laboratory Tests 2 12/20/16 06:27: Prothrombin Time 14.0, Prothromb Time International Ratio 1.07, Anion Gap 6L, Glomerular Filtration Rate > 60.0, Blood Urea Nitrogen 9, Creatinine 0.68, Sodium Level 141, Potassium Level 4.7, Chloride Level 108H, Carbon Dioxide Level 27, Calcium Level 9.2 CBC/BMP Laboratory Tests 12/20/16 06:27 Red Blood Count 4.03, Mean Corpuscular Volume 84.9, Mean Corpuscular Hemoglobin 26.8 L, Mean Corpuscular Hemoglobin Concent 31.6 L, Red Cell Distribution Width 14.2, Calcium Level 9.2 JAJA VEGA MD December 20, 2016 15:17
[2016-12-20] MEDS ORDERED: WARFARIN SOD 5 MG TAB PO ONE (17:00)
[2016-12-20 22:00] VITALS: BP 108/62
[2016-12-21] MEDS: PERCOCET 5MG/325MG TAB PO PRN ×2 (04:09→09:19)
[2016-12-21 06:00] VITALS: BP 128/63
[2016-12-21 06:48] LABS: MEAN CORPUSCULAR HEMOGLOBIN 26.4 pg (27.0-33.0); MEAN CORPUSCULAR HGB CONC 31.4 g/dl (32.0-36.5); MEAN CORPUSCULAR VOLUME 83.9 fl (80.0-96.0); RED CELL DISTRIBUTION WIDTH 14.3 % (11.5-14.5); WHITE BLOOD COUNT 6.9 K/mm3 (4.0-10.0)
[2016-12-21 06:52] LABS: INR 1.39
[2016-12-21 07:04] LABS: ANION GAP 5 MEQ/L (8-16); BLOOD UREA NITROGEN 13 MG/DL (7-18); CALCIUM LEVEL 8.2 MG/DL (8.5-10.1); CARBON DIOXIDE LEVEL 27 MEQ/L (21-32); CHLORIDE LEVEL 107 MEQ/L (98-107); CREATININE FOR GFR 0.85 MG/DL (0.55-1.02); GLOMERULAR FILTRATION RATE > 60.0 (>51); GLUCOSE, FASTING 94 MG/DL (70-105); SODIUM LEVEL 139 MEQ/L (136-145)
[2016-12-21] MEDS ORDERED: PERC5TAB6 PO (08:26)
[2016-12-21] MEDS ORDERED: COUM2.5T11 PO (08:26)
[2016-12-21] MEDS: MOM 30ML SUSPENSION UDC PO SCH (09:00)
[2016-12-21] MEDS: FLUoxetine 10 MG CAP PO SCH (09:00)
[2016-12-21] MEDS: MIRALAX *UNIT DOSE* 17GM PACKET PO SCH (09:00)
[2016-12-21 09:17] VITALS: BP 128/63
[2016-12-21] MEDS: BACTRIM 160MG/800MG DS TAB PO SCH (09:17)
[2016-12-21] MEDS: ATORVASTATIN 20 MG TAB PO SCH (09:17)
[2016-12-21] MEDS: METOPROLOL TART 50 MG TAB PO SCH (09:17)
[2016-12-21] MEDS: OMEPRAZOLE 20 MG CAP PO SCH (09:17)
[2016-12-21] MEDS: SUCRALFATE 1 GM TAB PO SCH (09:18)
[2016-12-21] MEDS: SENOKOT S TAB PO SCH (09:18)
--- NOTE | 2016-12-21 13:48 | IPNPDOC ---
Subjective Date Seen The patient was seen on 12/21/16. Subjective Chief Complaint/HPI The patient is a 56-year-old female admitted with a reason for visit of Right Knee Arthritis. General: Denies: Chills, Night Sweats Constitutional: Denies: Chills, Fever Eyes: Denies: Pain, Vision change ENT: Denies: Head Aches, Ear Pain Skin: Denies: Rash, Lesions Pulmonary: Denies: Dyspnea, Cough Cardiovascular: Denies: Chest Pain, Palpitations Gastrointestinal: Denies: Nausea, Vomiting Genitourinary: Denies: Dysuria, Frequency Hematologic: Denies: Bruising, Bleeding Excessively Objective Physical Examination General Exam: Positive: Alert, No Acute Distress Eye Exam: Positive: PERRLA, Conjunctiva & lids normal, EOMI, Negative: Sclera icteric ENT Exam: Positive: Atraumatic, Mucous membr. moist/pink, Pharynx Normal Neck Exam: Positive: Supple, Negative: JVD, thyromegaly Chest Exam: Positive: Clear to auscultation, Normal air movement Heart Exam: Positive: Rate Normal, Regular Rhythm, Normal S1, Normal S2, Negative: Murmurs, Rubs Abdomen Exam: Positive: Normal bowel sounds, Soft, Negative: Tenderness, Hepatospenomegaly Extremity Exam: Positive: Normal pulses, Other (Right Knee noted to be wrapped in surgical dressing. Range of motion limited secondary to recent surgery. Neurovascularly intact distally.), Negative: Clubbing, Cyanosis, Edema Assessment /Plan Problems (1) S/P total knee arthroplasty Problem Text: Patient states that she is resting comfortably and that her pain is well controlled We will defer pain management and DVT prophylaxis as per the primary orthopedic service. (2) Hypertension Status: Chronic Response to Treatment: Stable Problem Text: cont metoprolol (3) Hyperlipidemia Status: Chronic Response to Treatment: Stable Problem Text: continue statin (4) CAD (coronary artery disease) Status: Chronic Problem Text: Continue statin and metoprolol (5) Depression Status: Chronic Response to Treatment: Stable Problem Text: continue home meds (6) H/O: stroke with residual effects Status: Chronic Response to Treatment: Stable (7) Gastric bypass status for obesity Status: Chronic Problem Text: continue omeprazole and sucralfate. (8) Migraine Status: Chronic Response to Treatment: Stable Plan/VTE VTE Prophylaxis Ordered?: Yes VS, I&O, 24H, Fishbone Vital Signs/I&O Vital Signs Date Time Temp Pulse Resp B/P (MAP) Pulse Ox O2 Delivery O2 Flow Rate FiO2 12/21/16 09:50 18 12/21/16 09:19 98 Room Air 12/21/16 09:17 70 128/63 12/21/16 06:00 98.5 12/19/16 17:05 2 I&O- Last 24 Hours up to 6 AM 12/21/16 06:00 Intake Total 1080 ml Output Total 600 ml Balance 480 ml Laboratory Data 24H LABS Laboratory Tests 2 12/21/16 06:33: Prothrombin Time 17.2H, Prothromb Time International Ratio 1.39, Anion Gap 5L, Glomerular Filtration Rate > 60.0, Blood Urea Nitrogen 13, Creatinine 0.85, Sodium Level 139, Potassium Level 4.0, Chloride Level 107, Carbon Dioxide Level 27, Calcium Level 8.2L CBC/BMP Laboratory Tests 12/21/16 06:33 Red Blood Count 3.90 L, Mean Corpuscular Volume 83.9, Mean Corpuscular Hemoglobin 26.4 L, Mean Corpuscular Hemoglobin Concent 31.4 L, Red Cell Distribution Width 14.3, Calcium Level 8.2 L JAJA VEGA MD December 21, 2016 13:48
--- NOTE | 2016-12-25 06:39 | DSES ---
DATE OF ADMISSION: 12/19/2016 DATE OF DISCHARGE: 12/21/2016 ATTENDING PHYSICIAN: Dr. Cain Middleton. ADMISSION DIAGNOSIS: Osteoarthritis right knee. OTHER DIAGNOSES: 1. Metabolic syndrome. 2. Hypertension. 3. Elevated lipids. 4. Depression. 5. Coronary artery disease. 6. Migraines. 7. History of a stroke. 8. Obesity. DISCHARGE DIAGNOSIS: Osteoarthritis right knee status post right total knee arthroplasty. OPERATION PERFORMED: Right total knee arthroplasty. HISTORY: This is a pleasant 56-year-old female with progressively worsening right knee pain and stiffness. She failed to improve with conservative management. She was admitted for elective knee replacement on the right side. HOSPITAL COURSE: The patient was admitted on day of surgery, underwent a right total knee arthroplasty which was uneventful. She did well in the postoperative period and hospital course was without complications. She was up with therapy per their protocol and her pain was controlled. On day of discharge, she was doing well, weightbearing as tolerated on right lower extremity. She will move her right knee to prevent stiffness. She will use adjusted dose Coumadin and thromboembolism deterrent stockings (TEDs) for 30 days postoperative for deep venous thrombosis (DVT) prophylaxis. She will resume her preoperative medications and diet. She was given instructions to include but not limited to wound monitoring and activity limitations. She will followup in our office in 10-14 days for surgical followup. She will use oral pain medications for pain control. Please refer to the medical record for further details.
== END 2016-12-21 13:07 | disposition home or self-care (01) | DRG 302 ==
LOC: M OR 12-19 10:51 → M MS5PR 12-19 17:18
PROVIDERS: ADMIT Orthopaedic Surgery; ATTEND Orthopaedic Surgery
PROC: 0SRC0J9 Replacement of Right Knee Joint with Synthetic Substitute, Cemented, Open Approach (ICD-10-PCS; principal; 2016-12-19 13:30)
DX: M17.11 Unilateral primary osteoarthritis, right knee (principal); D68.51 Activated protein C resistance; E88.81 Metabolic syndrome and other insulin resistance; I10 Essential (primary) hypertension; E78.5 Hyperlipidemia, unspecified; G43.909 Migraine, unspecified, not intractable, without status migrainosus; I25.10 Atherosclerotic heart disease of native coronary artery without angina pectoris; F32.9 Major depressive disorder, single episode, unspecified; Z90.49 Acquired absence of other specified parts of digestive tract; Z82.49 Family history of ischemic heart disease and other diseases of the circulatory system; Z83.3 Family history of diabetes mellitus; Z80.41 Family history of malignant neoplasm of ovary; Z80.0 Family history of malignant neoplasm of digestive organs; Z98.84 Bariatric surgery status; Z87.891 Personal history of nicotine dependence

== ENCOUNTER → 2016-12-10 | Outpatient (REF) | payer BC ==
[2016-12-10 13:45] LABS: BASO % 1.5 % (0.0-1.0); EOS # 0.3 K/mm3 (0.0-0.50); EOS % 8.3 % (0.0-3.0); LARGE UNSTAINED CELL # 0.1 K/mm3 (0.0-0.4); LARGE UNSTAINED CELL % 1.9 % (0.0-4.0); LYMPH % 27.5 % (24.0-44.0); MEAN CORPUSCULAR HEMOGLOBIN 26.3 pg (27.0-33.0); MEAN CORPUSCULAR HGB CONC 32.4 g/dl (32.0-36.5); MEAN CORPUSCULAR VOLUME 81.2 fl (80.0-96.0); MONO # 0.3 K/mm3 (0.0-0.8); MONO % 7.6 % (0.0-5.0); NEUTROPHILS # 1.9 K/mm3 (1.8-7.7); NEUTROPHILS % 53.2 % (36.0-66.0); PLATELET COUNT, AUTOMATED 171 k/mm3 (150-450); WHITE BLOOD COUNT 3.5 K/mm3 (4.0-10.0)
[2016-12-10 14:14] LABS: VITAMIN B12 LEVEL 616 PG/ML (247-911)
[2016-12-10 14:21] LABS: ALBUMIN 3.5 GM/DL (3.2-5.2); ALBUMIN/GLOBULIN RATIO 1.25 (1.00-1.93); ALKALINE PHOSPHATASE 148 U/L (45-117); ALT/SGPT 33 U/L (12-78); ANION GAP 7 MEQ/L (8-16); AST/SGOT 24 U/L (15-37); BILIRUBIN,TOTAL 0.4 MG/DL (0.2-1.0); BLOOD UREA NITROGEN 11 MG/DL (7-18); CALCIUM LEVEL 8.8 MG/DL (8.5-10.1); CARBON DIOXIDE LEVEL 29 MEQ/L (21-32); CHLORIDE LEVEL 106 MEQ/L (98-107); CREATININE FOR GFR 0.65 MG/DL (0.55-1.02); FERRITIN 19 NG/ML (8-252); GLOMERULAR FILTRATION RATE > 60.0 (>51); GLUCOSE, FASTING 102 MG/DL (70-105); MAGNESIUM LEVEL 2.2 MG/DL (1.8-2.4); PERCENT SATURATION 20.6 % (13.2-37.4); PHOSPHORUS LEVEL 3.5 MG/DL (2.5-4.9); SODIUM LEVEL 142 MEQ/L (136-145); TOTAL IRON BINDING CAPACITY 373 UG/DL (250-450); TOTAL PROTEIN 6.3 GM/DL (6.4-8.2)
[2016-12-11 11:32] LABS: PRETREATED FOLATE FOR RBCFOL 7.8 NG/ML
== END ==
LOC: M LABDRAW1 13:02
PROVIDERS: ATTEND Surgery
DX: K91.2 Postsurgical malabsorption, not elsewhere classified (principal); E55.9 Vitamin D deficiency, unspecified; Z98.84 Bariatric surgery status

== ENCOUNTER → 2016-12-25 | Outpatient (REF) | payer BC ==
[~2016-12-25] MED LIST changes: +COUM2.5T11 PO; +LOPR1TAB6 PO; +PERC5TAB6 PO
[2016-12-25 14:49] LABS: INR 1.14
== END ==
LOC: M SHH 14:21 → M LAB REF 14:21
PROVIDERS: ATTEND Nurse Practitioner Family
DX: Z79.01 Long term (current) use of anticoagulants (principal)

== ENCOUNTER → 2016-12-27 | Outpatient (REF) | payer BC ==
[2016-12-27 12:26] LABS: INR 1.26
== END ==
LOC: M SHH 11:55
PROVIDERS: ATTEND Nurse Practitioner Family
DX: Z79.01 Long term (current) use of anticoagulants (principal)

== ENCOUNTER → 2017-01-01 | Outpatient (REF) | payer BC ==
[2017-01-01 13:32] LABS: INR 1.84
== END ==
LOC: M SHH 12:51
PROVIDERS: ATTEND Nurse Practitioner Family
DX: Z79.01 Long term (current) use of anticoagulants (principal)

== ENCOUNTER → 2017-01-03 | Outpatient (REF) | payer BC ==
[2017-01-03 14:21] LABS: INR 2.25
== END ==
LOC: M SHH 13:04
PROVIDERS: ATTEND Nurse Practitioner Family
DX: Z79.01 Long term (current) use of anticoagulants (principal)

== ENCOUNTER → 2017-01-07 | Outpatient (REF) | payer BC ==
[2017-01-07 13:54] LABS: INR 2.87
== END ==
LOC: M SHH 13:31
PROVIDERS: ATTEND Nurse Practitioner Family
DX: M17.11 Unilateral primary osteoarthritis, right knee (principal)

== ENCOUNTER → 2017-01-10 | Outpatient (REF) | payer BC ==
[2017-01-10 11:34] LABS: INR 1.56
== END ==
LOC: M SHH 11:10
PROVIDERS: ATTEND Nurse Practitioner Family
DX: Z79.01 Long term (current) use of anticoagulants (principal)

== ENCOUNTER → 2017-01-14 | Outpatient (REF) | payer BC ==
[2017-01-14 12:26] LABS: INR 1.13
== END ==
LOC: M SHH 11:54
PROVIDERS: ATTEND Nurse Practitioner Family
DX: Z79.01 Long term (current) use of anticoagulants (principal)

== ENCOUNTER → 2017-01-17 | Outpatient (REF) | payer BC ==
[2017-01-17 11:45] LABS: INR 1.38
== END ==
LOC: M SHH 11:14
PROVIDERS: ATTEND Nurse Practitioner Family
DX: Z79.01 Long term (current) use of anticoagulants (principal)

== ENCOUNTER 2017-02-01 01:12 | Inpatient (IN) | payer BC ==
[~2017-02-01] VITALS: Ht 170.2 cm; Wt 102.0 kg
[~2017-02-01 01:12] MED LIST changes: -ATOR40TA PO; +ATOR40TA75 PO; -COUM2.5T11 PO; +COUM2.5T17 PO; -METO50TA2 PO; +METO50TA7 PO; +PERC5TAB12 PO; -PERC5TAB6 PO; +VITA1CAP40 PO; -VITA50003 PO
[2017-02-01 02:41] LABS: MEAN CORPUSCULAR HEMOGLOBIN 25.9 pg (27.0-33.0); MEAN CORPUSCULAR HGB CONC 31.7 g/dl (32.0-36.5); MEAN CORPUSCULAR VOLUME 81.6 fl (80.0-96.0); WHITE BLOOD COUNT 7.8 K/mm3 (4.0-10.0)
[2017-02-01 02:42] LABS: BASO # 0.1 K/mm3 (0.0-0.2); BASO % 0.8 % (0.0-1.0); EOS # 0.2 K/mm3 (0.0-0.50); EOS % 2.3 % (0.0-3.0); LARGE UNSTAINED CELL # 0.1 K/mm3 (0.0-0.4); LARGE UNSTAINED CELL % 1.7 % (0.0-4.0); LYMPH # 1.5 K/mm3 (1.5-4.5); LYMPH % 19.7 % (24.0-44.0); MONO # 0.5 K/mm3 (0.0-0.8); MONO % 6.3 % (0.0-5.0); NEUTROPHILS # 5.4 K/mm3 (1.8-7.7); PLATELET COUNT, AUTOMATED 207 k/mm3 (150-450); RED CELL DISTRIBUTION WIDTH 15.1 % (11.5-14.5)
[2017-02-01 02:44] LABS: INR 1.11
[2017-02-01 02:51] LABS: ALBUMIN/GLOBULIN RATIO 1.25 (1.00-1.93); ALKALINE PHOSPHATASE 96 U/L (45-117); ALT/SGPT 24 U/L (12-78); ANION GAP 8 MEQ/L (8-16); AST/SGOT 15 U/L (15-37); BILIRUBIN,DIRECT < 0.1 MG/DL (0.0-0.2); BILIRUBIN,TOTAL 0.3 MG/DL (0.2-1.0); BLOOD UREA NITROGEN 28 MG/DL (7-18); CALCIUM LEVEL 8.3 MG/DL (8.5-10.1); CARBON DIOXIDE LEVEL 25 MEQ/L (21-32); CHLORIDE LEVEL 111 MEQ/L (98-107); CREATININE FOR GFR 0.73 MG/DL (0.55-1.02); GLOMERULAR FILTRATION RATE > 60.0 (>51); GLUCOSE, FASTING 145 MG/DL (70-105); POTASSIUM SERUM 4.2 MEQ/L (3.5-5.1); SODIUM LEVEL 144 MEQ/L (136-145); TOTAL PROTEIN 5.4 GM/DL (6.4-8.2)
[2017-02-01] MEDS ORDERED: TYLE500T78 PO (04:13)
[2017-02-01] MEDS ORDERED: FERR325T3 PO (04:13)
[2017-02-01] MEDS ORDERED: ASPI81TA21 PO (04:13)
[2017-02-01] MEDS ORDERED: B-1210009 PO (04:13)
[2017-02-01] MEDS ORDERED: NATU400T PO (04:13)
[2017-02-01] MEDS ORDERED: VITMTA PO (04:14)
--- NOTE | 2017-02-01 04:44 | HPEPDOC ---
General Date of Admission Feb 01, 2017 at 03:51 Chief Complaint The patient is a 56-year-old female admitted with a reason for visit of Upper Gi Bleed. 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 The pt states that she woke up to use the rest room and acutely became dizzy and then fell down, she hit her head on a carpeted floor and came to seconds later, she immediately knew what had happened and where she was after the incident. She states she did urinate on herself, however this was a conscious act as she states she just couldn't hold it any longer. She was on the ground for a few minutes because she felt too weak to ambulate, finally when she did she went down stairs and had a BM and noted hemalatha/merlot colored stool in the toilet with a clot apparently floating in the water. Her sister had called EMS due to her passing out episode and she was brought to [facility]. The pt states that last night she did note some bleeding when she brushed her teeth, which she states was new, denied nose bleeds but did say she bruises easily and does have Factor V Leiden def. She had a CVA three years ago that left her with some residual deficit on her left side, and she is anticoagulated because of this. The pt denies being SOB, CP or fever and denies blood in urine and stool prior to this episode ( aside from her bleeding gastric ulcer episode one year ago when she presented with blood in her stool). She states that last year she was transferred to [facility] after arriving to [facility] because her GI doctor requested she be at [facility], there she received an upper and lower scope where they ligated a bleeding gastric ulcer and removed some benign polyps (as per pts knowledge), she has also followed with local GI doctor and was also scoped by him as well. She did recently have right knee replacement by Ortho. here in town, she doesn't think she fell on her knee and states it doesn't feel worse than what it was before the fall last night. She does admit to feeling more fatigued the past few days and notes family member have said she looks more pale than usual. Home Medications Scheduled (Calcium Citrate + 315-200 mg-Unit) 1 Tab Tab, 1 TAB PO QHS, (Reported) Alpha Tocopheryl Acid Succinat (Vitamin E) 400 Unit Tab, 400 UNIT PO DAILY, ( Reported) Aspirin (Aspir-Low) 81 Mg Tab, 81 MG PO DAILY, (Reported) Atorvastatin Calcium (Atorvastatin Calcium) 40 Mg Tab, 40 MG PO DAILY, (Reported ) Cyanocobalamin (B-12) 1,000 Mcg Tab, 1,000 MCG PO DAILY, (Reported) Ergocalciferol (Vitamin D) 50,000 Unit Cap, 50,000 MG PO QWEEK, (Reported) ON SUNDAYS Ferrous Sulfate (Ferrous Sulfate) 325 Mg Tab, 325 MG PO DAILY, (Reported) Fluoxetine Hcl (Fluoxetine) 10 Mg Cap, 10 MG PO DAILY, (Reported) Metoprolol Tartrate (Lopressor) 50 Mg Tab, 50 MG PO DAILY, (Reported) Multivitamins *[facility] STOCKED* (Thera M Plus *[facility] STOCKED*) 1 Tab Tab, 2 TAB PO DAILY, (Reported) Omeprazole (Omeprazole) 40 Mg Cap, 40 MG PO DAILY, (Reported) Scheduled PRN Acetaminophen (Tylenol Extra Strength) 500 Mg Tab, 500 MG PO Q6H PRN for PAIN, ( Reported) Allergies Coded Allergies: No Known Allergies (Verified , 01/16/06) Past Medical History Medical History CVA 3 yrs ago with left sided deficit HTN DLP hx of bleeding gastric ulcer 1 year prior Family History Significant Family History: No pertinent family hx Social History * Smoker: Denies Alcohol: Denies Drugs: denies lives with sister Review of Symptoms Constitutional: Denies: Chills, Fever, Malaise, Night Sweats Eyes: Denies: Pain, Vision change ENT: Denies: Head Aches Skin: Reports: Bruising, Denies: Rash, Lesions Pulmonary: Denies: Dyspnea, Cough Cardiovascular: Denies: Chest Pain, Palpitations, Orthopnea Gastrointestinal: Reports: Nausea, Melena, Denies: Vomiting, Abdominal Pain, Diarrhea, Constipation, Hematochezia Genitourinary: Denies: Dysuria, Frequency Hematologic: Reports: Bruising, Denies: Bleeding Excessively, Petecchia Neurological: Reports: Weakness, Denies: Change in speech, Confusion, Seizures Psych: Reports: Mood Normal Physical Examination General Exam: Positive: Alert, Cooperative, No Acute Distress Eye Exam: Positive: Conjunctiva & lids normal, EOMI, Negative: Sclera icteric, Ptosis Neck Exam: Positive: Supple Chest Exam: Positive: Clear to auscultation, Normal air movement Heart Exam: Positive: Rate Normal, Tachycardic, Normal S1, Normal S2, Negative: Gallops, Murmurs, Rubs Telemetry: Positive: No significant arrhythmia Abdomen Exam: Positive: Normal bowel sounds, Soft, Negative: Tenderness, Hepatospenomegaly Extremity Exam: Positive: Normal pulses, Negative: Clubbing, Cyanosis, Edema Vital Signs Vital Signs Date Time Temp Pulse Resp B/P (MAP) Pulse Ox O2 Delivery O2 Flow Rate FiO2 02/01/17 04:01 93 14 99/58 (72) 97 02/01/17 02:31 97.1 02/01/17 02:00 Room Air Laboratory Data Labs 24H Laboratory Tests 2 02/01/17 01:44: White Blood Count 7.8, Red Blood Count 3.53L, Hemoglobin 9.1L, Hematocrit 28.8L , Mean Corpuscular Volume 81.6, Mean Corpuscular Hemoglobin 25.9L, Mean Corpuscular Hemoglobin Concent 31.7L, Red Cell Distribution Width 15.1H, Platelet Count 207, Neutrophils (%) (Auto) 69.0H, Lymphocytes (%) (Auto) 19.7L, Monocytes (%) (Auto) 6.3H, Eosinophils (%) (Auto) 2.3, Basophils (%) (Auto) 0.8 , Neutrophils # (Auto) 5.4, Lymphocytes # (Auto) 1.5, Monocytes # (Auto) 0.5, Eosinophils # (Auto) 0.2, Basophils # (Auto) 0.1, Large Unclassified Cells % 1.7 , Large Unclassified Cells # 0.1, Prothrombin Time 14.4, Prothromb Time International Ratio 1.11, Activated Partial Thromboplast Time 28.3, Anion Gap 8 , Glomerular Filtration Rate > 60.0, Calcium Level 8.3L, Aspartate Amino Transf (AST/SGOT) 15, Alanine Aminotransferase (ALT/SGPT) 24, Alkaline Phosphatase 96, Total Bilirubin 0.3, Direct Bilirubin < 0.1, Total Protein 5.4L, Albumin 3.0L, Albumin/Globulin Ratio 1.25 CBC/BMP Laboratory Tests 02/01/17 01:44 Red Blood Count 3.53 L, Mean Corpuscular Volume 81.6, Mean Corpuscular Hemoglobin 25.9 L, Mean Corpuscular Hemoglobin Concent 31.7 L, Red Cell Distribution Width 15.1 H, Neutrophils (%) (Auto) 69.0 H, Lymphocytes (%) (Auto ) 19.7 L, Monocytes (%) (Auto) 6.3 H, Eosinophils (%) (Auto) 2.3, Basophils (%) (Auto) 0.8, Neutrophils # (Auto) 5.4, Lymphocytes # (Auto) 1.5, Monocytes # ( Auto) 0.5, Eosinophils # (Auto) 0.2, Basophils # (Auto) 0.1 Problems (1) Upper GI bleed Status: Acute Response to Treatment: Stable Problem Text: suspect reoccurrence of upper GI bleed have consulted and spoke to GI, they will see her this morning have stopped anticoagulation home medications - pt INR suggests pt is subtherapeutic anyways H/H q6h Type & Screen IV protonix 40 q12h NS at 125, pts BP was soft in ED 90-100 systolic PT made NPO (2) Syncope Status: Acute Response to Treatment: Stable Problem Text: suspect may be secondary to blood loss will order orthostatic vitals GI on consult will see pt in morning (3) Hypertension Status: Chronic Response to Treatment: Stable Problem Text: will d/c home medications in light of soft BP Fluid therapy NS 125 continue to monitor (4) Hyperlipidemia Status: Chronic Response to Treatment: Stable Problem Text: continue home medications (5) DVT prophylaxis Status: Acute Response to Treatment: Stable Problem Text: SCD TEDS Plan / VTE VTE Prophylaxis Ordered?: Yes GME ATTESTATION GME ATTESTATION My preceptor for this patient encounter was physically present in the building during the encounter and was fully available. As needed, all aspects of the patient interview, examination, medical decision making process, and medical care plan development were reviewed and approved by the preceptor. Preceptor is aware and concurs with the plan as stated in the body of this note and will attest to such by his/her cosignature. SALVATORE REDDING DO Feb 01, 2017 04:44
[2017-02-01] MEDS ORDERED: PANTOPRAZOLE 40MG INJ (PROTONIX) (C9113) IV ONE ×2 (04:45→05:00)
[2017-02-01] MEDS: NS 1,000 ML IV SCH ×3 (05:15→19:40)
[2017-02-01 06:27] LABS: BASO % 0.6 % (0.0-1.0); EOS # 0.1 K/mm3 (0.0-0.50); LARGE UNSTAINED CELL # 0.1 K/mm3 (0.0-0.4); LARGE UNSTAINED CELL % 0.9 % (0.0-4.0); LYMPH % 14.9 % (24.0-44.0); MEAN CORPUSCULAR HEMOGLOBIN 27.6 pg (27.0-33.0); MEAN CORPUSCULAR HGB CONC 33.7 g/dl (32.0-36.5); MEAN CORPUSCULAR VOLUME 82.1 fl (80.0-96.0); MONO # 0.3 K/mm3 (0.0-0.8); MONO % 4.6 % (0.0-5.0); NEUTROPHILS % 78.1 % (36.0-66.0); PLATELET COUNT, AUTOMATED 202 k/mm3 (150-450); RED CELL DISTRIBUTION WIDTH 15.1 % (11.5-14.5); WHITE BLOOD COUNT 6.4 K/mm3 (4.0-10.0)
[2017-02-01 06:51] LABS: ANION GAP 8 MEQ/L (8-16); BLOOD UREA NITROGEN 28 MG/DL (7-18); CALCIUM LEVEL 8.6 MG/DL (8.5-10.1); CARBON DIOXIDE LEVEL 25 MEQ/L (21-32); CHLORIDE LEVEL 113 MEQ/L (98-107); CREATININE FOR GFR 0.61 MG/DL (0.55-1.02); GLOMERULAR FILTRATION RATE > 60.0 (>51); GLUCOSE, FASTING 120 MG/DL (70-105); POTASSIUM SERUM 4.3 MEQ/L (3.5-5.1); SODIUM LEVEL 146 MEQ/L (136-145)
[2017-02-01] MEDS: SUCRALFATE SUSP 1GM/10ML UD PO SCH ×4 (07:09→23:45)
[2017-02-01] MEDS: ATORVASTATIN 20 MG TAB PO SCH (08:57)
[2017-02-01] MEDS: PANTOPRAZOLE 40MG INJ (PROTONIX) (C9113) IV SCH ×2 (08:58→21:11)
[2017-02-01] MEDS: FERROUS SULFATE 325MG TAB PO SCH (08:58)
[2017-02-01] MEDS: FLUoxetine 10 MG CAP PO SCH (08:58)
[2017-02-01] MEDS ORDERED: MULTIVITAMINS/MINERALS THERAP 1 TAB PO SCH (09:00)
[2017-02-01] MEDS ORDERED: METOPROLOL TART 50 MG TAB PO SCH (09:00)
[2017-02-01] MEDS: ACETAMINOPHEN TAB 650MG DOSE (2X325MG) PO PRN (09:56)
--- NOTE | 2017-02-01 15:38 | IPNPDOC ---
Subjective Date Seen The patient was seen on 02/01/17. Subjective Chief Complaint/HPI The patient is a 56-year-old female admitted with a reason for visit of Upper Gi Bleed. General: Denies: Chills, Night Sweats Constitutional: Denies: Chills, Fever Eyes: Denies: Pain, Vision change ENT: Denies: Head Aches, Ear Pain Skin: Denies: Rash, Lesions Pulmonary: Denies: Dyspnea, Cough Cardiovascular: Denies: Chest Pain, Palpitations Gastrointestinal: Denies: Nausea, Vomiting Genitourinary: Denies: Dysuria, Frequency Objective Physical Examination General Exam: Positive: Alert, Cooperative, No Acute Distress Eye Exam: Negative: Sclera icteric, Ptosis Neck Exam: Negative: JVD Chest Exam: Positive: Clear to auscultation, Normal air movement Heart Exam: Positive: Rate Normal, Normal S1, Normal S2, Negative: Gallops, Murmurs, Rubs Telemetry: Positive: No significant arrhythmia Abdomen Exam: Positive: Normal bowel sounds, Soft, Negative: Tenderness, Hepatospenomegaly Extremity Exam: Positive: Normal pulses, Negative: Clubbing, Cyanosis, Edema Psych Exam: Positive: Oriented x 3 Assessment /Plan Problems (1) Upper GI bleed Status: Acute Response to Treatment: Stable Problem Text: Patient's hgb this morning 9.1 and repeat 8.3--no overt or active source of bleeding at this time Will continue to monitor H&H q6h IV protonix 40 q12h, carafate ordered cont IVF hydration PT made NPO GI on board, will see the patient in consult We will cont to monitor the patient's progress (2) Syncope Status: Acute Response to Treatment: Stable Problem Text: possibly 2/2 GI Bleeding Event No events on telemetry noted Orthostatic vitals We will cont to monitor on telemetry for now (3) Hypertension Status: Chronic Response to Treatment: Stable Problem Text: will hold home medications in light of soft BP Fluid therapy NS 125 continue to monitor (4) Hyperlipidemia Status: Chronic Response to Treatment: Stable Problem Text: continue home medications (5) DVT prophylaxis Status: Acute Response to Treatment: Stable Problem Text: SCD TEDS Plan/VTE VTE Prophylaxis Ordered?: Yes VS, I&O, 24H, Fishbone Vital Signs/I&O Vital Signs Date Time Temp Pulse Resp B/P (MAP) Pulse Ox O2 Delivery O2 Flow Rate FiO2 02/01/17 14:14 97.8 87 18 114/80 (91) 02/01/17 14:00 97 02/01/17 08:42 Room Air Laboratory Data 24H LABS Laboratory Tests 2 02/01/17 01:44: White Blood Count 7.8, Red Blood Count 3.53L, Hemoglobin 9.1L, Hematocrit 28.8L , Mean Corpuscular Volume 81.6, Mean Corpuscular Hemoglobin 25.9L, Mean Corpuscular Hemoglobin Concent 31.7L, Red Cell Distribution Width 15.1H, Platelet Count 207, Neutrophils (%) (Auto) 69.0H, Lymphocytes (%) (Auto) 19.7L, Monocytes (%) (Auto) 6.3H, Eosinophils (%) (Auto) 2.3, Basophils (%) (Auto) 0.8 , Neutrophils # (Auto) 5.4, Lymphocytes # (Auto) 1.5, Monocytes # (Auto) 0.5, Eosinophils # (Auto) 0.2, Basophils # (Auto) 0.1, Large Unclassified Cells % 1.7 , Large Unclassified Cells # 0.1, Prothrombin Time 14.4, Prothromb Time International Ratio 1.11, Activated Partial Thromboplast Time 28.3, Anion Gap 8 , Glomerular Filtration Rate > 60.0, Calcium Level 8.3L, Aspartate Amino Transf (AST/SGOT) 15, Alanine Aminotransferase (ALT/SGPT) 24, Alkaline Phosphatase 96, Total Bilirubin 0.3, Direct Bilirubin < 0.1, Total Protein 5.4L, Albumin 3.0L, Albumin/Globulin Ratio 1.25 02/01/17 06:00: White Blood Count 6.4, Red Blood Count 3.28L, Hemoglobin 9.1L, Hematocrit 26.9L , Mean Corpuscular Volume 82.1, Mean Corpuscular Hemoglobin 27.6, Mean Corpuscular Hemoglobin Concent 33.7, Red Cell Distribution Width 15.1H, Platelet Count 202, Neutrophils (%) (Auto) 78.1H, Lymphocytes (%) (Auto) 14.9L, Monocytes (%) (Auto) 4.6, Eosinophils (%) (Auto) 1.0, Basophils (%) (Auto) 0.6, Neutrophils # (Auto) 5.0, Lymphocytes # (Auto) 1.0L, Monocytes # (Auto) 0.3, Eosinophils # (Auto) 0.1, Basophils # (Auto) 0.0, Large Unclassified Cells % 0.9 , Large Unclassified Cells # 0.1, Anion Gap 8, Glomerular Filtration Rate > 60.0 , Calcium Level 8.6, Blood Urea Nitrogen 28H, Creatinine 0.61, Sodium Level 146H , Potassium Level 4.3, Chloride Level 113H, Carbon Dioxide Level 25 CBC/BMP Laboratory Tests 02/01/17 01:44 Red Blood Count 3.53 L, Mean Corpuscular Volume 81.6, Mean Corpuscular Hemoglobin 25.9 L, Mean Corpuscular Hemoglobin Concent 31.7 L, Red Cell Distribution Width 15.1 H, Neutrophils (%) (Auto) 69.0 H, Lymphocytes (%) (Auto ) 19.7 L, Monocytes (%) (Auto) 6.3 H, Eosinophils (%) (Auto) 2.3, Basophils (%) (Auto) 0.8, Neutrophils # (Auto) 5.4, Lymphocytes # (Auto) 1.5, Monocytes # ( Auto) 0.5, Eosinophils # (Auto) 0.2, Basophils # (Auto) 0.1 02/01/17 06:00 Red Blood Count 3.28 L, Mean Corpuscular Volume 82.1, Mean Corpuscular Hemoglobin 27.6, Mean Corpuscular Hemoglobin Concent 33.7, Red Cell Distribution Width 15.1 H, Neutrophils (%) (Auto) 78.1 H, Lymphocytes (%) (Auto ) 14.9 L, Monocytes (%) (Auto) 4.6, Eosinophils (%) (Auto) 1.0, Basophils (%) ( Auto) 0.6, Neutrophils # (Auto) 5.0, Lymphocytes # (Auto) 1.0 L, Monocytes # ( Auto) 0.3, Eosinophils # (Auto) 0.1, Basophils # (Auto) 0.0, Calcium Level 8.6 02/01/17 09:46 JAJA VEGA MD Feb 01, 2017 15:38
[2017-02-01 16:09] LABS: MEAN CORPUSCULAR HEMOGLOBIN 26.2 pg (27.0-33.0); MEAN CORPUSCULAR HGB CONC 32.3 g/dl (32.0-36.5); MEAN CORPUSCULAR VOLUME 81.1 fl (80.0-96.0); RED CELL DISTRIBUTION WIDTH 15.2 % (11.5-14.5); WHITE BLOOD COUNT 6.4 K/mm3 (4.0-10.0)
[2017-02-01] MEDS ORDERED: PROPOFOL 200 MG/20 ML VIAL As Ordered ONE (16:12)
[2017-02-01] MEDS ORDERED: fentaNYL 100 MCG/2 ML INJECTION (J3010) As Ordered ONE (16:29)
[2017-02-01] MEDS ORDERED: ETOMIDATE INJ 20MG/10ML VIAL As Ordered ONE (16:33)
[2017-02-01] MEDS ORDERED: PHENYLephrine HCL 500 MCG/5 ML (100MCG/ML) SYRINGE (J2370) As Ordered ONE (16:39)
[2017-02-01] MEDS ORDERED: ROCURONIUM BROMIDE 50 MG/5 ML VIAL/SYRINGE As Ordered ONE (16:51)
[2017-02-01] MEDS ORDERED: ONDANSETRON 4MG/2ML VIAL (J2405) As Ordered ONE (16:52)
[2017-02-01] MEDS ORDERED: GLYCOPYRROLATE INJ 0.2 MG/ML 2 ML VIAL As Ordered ONE (17:05)
[2017-02-01] MEDS ORDERED: NEOSTIGMINE 1MG/ML 5 ML SYRINGE (J2710) As Ordered ONE (17:05)
--- NOTE | 2017-02-01 17:31 | ROOR ---
Patient Name: Margo Hendrickson Procedure Date: 02/01/2017 4:34 PM Date of : 1960 Age: 56 Room: Main OR Gender: Female Note Status: Finalized Procedure: Upper GI endoscopy + Heater Probe/Hemoclips Indications: Active gastrointestinal bleeding Providers: Ranjith Anne MD Referring MD: 1. No Referring Physician 1. No Referring Physician, Admin. Requesting Provider: Medicines: General Anesthesia Complications: No immediate complications. Procedure: Pre-Anesthesia Assessment: - The heart rate, respiratory rate, oxygen saturations, blood pressure, adequacy of pulmonary ventilation, and response to care were monitored throughout the procedure. The Endoscope was introduced through the mouth, and advanced to the gastric stoma. The upper GI endoscopy was accomplished without difficulty. The patient tolerated the procedure well. Findings: The Z-line was regular and was found 40 cm from the incisors. Evidence of a gastric bypass was found. A gastric pouch with a small size was found. The staple line appeared intact. The gastrojejunal anastomosis was characterized by ulceration. This was traversed. The [id number] limb was characterized by healthy appearing mucosa. For hemostasis, eight hemostatic clips were successfully placed (MR conditional). There was no bleeding at the end of the procedure. Coagulation for bleeding prevention using heater probe was successful. The exam was otherwise without abnormality. Impression: - Z-line regular, 40 cm from the incisors. - Gastric bypass with a small-sized pouch and intact staple line. Gastrojejunal anastomosis characterized by ulceration. Clips (MR conditional) were placed. Treated with a heater probe. - The examination was otherwise normal. - No specimens collected. - The examination was otherwise normal. Recommendation: - Patient has a contact number available for emergencies. The signs and symptoms of potential delayed complications were discussed with the patient. Return to normal activities tomorrow. Written discharge instructions were provided to the patient. - NPO. - [facility] care. - The findings and recommendations were discussed with the patient and their primary physician. Ranjith Anne MD Ranjith Anne MD 02/01/2017 5:30:58 PM This report has been signed electronically. Number of Addenda: 0 Note Initiated On: 02/01/2017 4:34 PM Estimated Blood Loss: Estimated blood loss: none.
[2017-02-01] MEDS ORDERED: ONDANSETRON 4MG/2ML VIAL (J2405) IV PRN (17:45)
[2017-02-01] MEDS ORDERED: LR 1,000 ML IV SCH (17:45)
[2017-02-01] MEDS ORDERED: NS 1,000 ML IV SCH (19:00)
[2017-02-01 19:58] VITALS: BP 121/68
[2017-02-01 20:40] VITALS: O2SAT 98
[2017-02-01 21:00] VITALS: BP 112/66
[2017-02-01] MEDS ORDERED: ACETAMINOPHEN TAB 650MG DOSE (2X325MG) PO ONE (21:45)
[2017-02-01 22:45] VITALS: BP 119/71
[2017-02-01 23:45] VITALS: BP 124/76
[2017-02-02] VITALS (9 sets, daily range): BP systolic 121–146; BP diastolic 60–93
[2017-02-02] MEDS: ACETAMINOPHEN TAB 650MG DOSE (2X325MG) PO PRN ×4 (04:27→20:36)
[2017-02-02] MEDS: SUCRALFATE SUSP 1GM/10ML UD PO SCH ×4 (05:05→23:48)
[2017-02-02 05:32] LABS: BASO % 0.7 % (0.0-1.0); EOS # 0.2 K/mm3 (0.0-0.50); EOS % 4.9 % (0.0-3.0); LARGE UNSTAINED CELL # 0.1 K/mm3 (0.0-0.4); LARGE UNSTAINED CELL % 1.7 % (0.0-4.0); LYMPH # 1.1 K/mm3 (1.5-4.5); LYMPH % 24.9 % (24.0-44.0); MEAN CORPUSCULAR HEMOGLOBIN 27.4 pg (27.0-33.0); MEAN CORPUSCULAR HGB CONC 32.7 g/dl (32.0-36.5); MEAN CORPUSCULAR VOLUME 83.8 fl (80.0-96.0); MONO # 0.2 K/mm3 (0.0-0.8); MONO % 5.6 % (0.0-5.0); NEUTROPHILS # 2.6 K/mm3 (1.8-7.7); NEUTROPHILS % 62.1 % (36.0-66.0); PLATELET COUNT, AUTOMATED 146 k/mm3 (150-450); RED CELL DISTRIBUTION WIDTH 14.9 % (11.5-14.5); WHITE BLOOD COUNT 4.1 K/mm3 (4.0-10.0)
[2017-02-02 05:48] LABS: ANION GAP 5 MEQ/L (8-16); BLOOD UREA NITROGEN 14 MG/DL (7-18); CALCIUM LEVEL 7.9 MG/DL (8.5-10.1); CARBON DIOXIDE LEVEL 24 MEQ/L (21-32); CHLORIDE LEVEL 114 MEQ/L (98-107); CREATININE FOR GFR 0.59 MG/DL (0.55-1.02); GLOMERULAR FILTRATION RATE > 60.0 (>51); GLUCOSE, FASTING 96 MG/DL (70-105); POTASSIUM SERUM 3.8 MEQ/L (3.5-5.1); SODIUM LEVEL 143 MEQ/L (136-145)
[2017-02-02] MEDS: NS 1,000 ML IV SCH (06:48)
[2017-02-02] MEDS: PANTOPRAZOLE 40MG INJ (PROTONIX) (C9113) IV SCH ×2 (08:17→20:35)
[2017-02-02] MEDS: FLUoxetine 10 MG CAP PO SCH (08:17)
[2017-02-02] MEDS: ATORVASTATIN 20 MG TAB PO SCH (08:17)
[2017-02-02] MEDS: FERROUS SULFATE 325MG TAB PO SCH (09:00)
--- NOTE | 2017-02-02 10:28 | IPNPDOC ---
Subjective Date Seen The patient was seen on 02/02/17. Subjective Chief Complaint/HPI The patient is a 56-year-old female admitted with a reason for visit of Upper Gi Bleed. General: Denies: Chills, Night Sweats Constitutional: Denies: Chills, Fever Eyes: Denies: Pain, Vision change ENT: Denies: Head Aches, Ear Pain, Dysphagia Skin: Denies: Rash, Lesions Pulmonary: Denies: Dyspnea, Cough Cardiovascular: Denies: Chest Pain, Palpitations Gastrointestinal: Denies: Nausea, Vomiting, Abdominal Pain Genitourinary: Denies: Dysuria, Frequency Objective Physical Examination General Exam: Positive: Alert, Cooperative, No Acute Distress Eye Exam: Negative: Sclera icteric, Ptosis Neck Exam: Negative: JVD Chest Exam: Positive: Clear to auscultation, Normal air movement Heart Exam: Positive: Rate Normal, Normal S1, Normal S2, Negative: Gallops, Murmurs, Rubs Telemetry: Positive: No significant arrhythmia Abdomen Exam: Positive: Normal bowel sounds, Soft, Negative: Tenderness, Hepatospenomegaly Extremity Exam: Positive: Normal pulses, Negative: Clubbing, Cyanosis, Edema Psych Exam: Positive: Oriented x 3 Assessment /Plan Problems (1) Upper GI bleed Status: Acute Response to Treatment: Stable Problem Text: The patient did have two episodes of "merlot colored" stool last night prior to EGD EGD results noted--no active source of bleeding identified, the patient did have hemostatic clips placed, and coagulation for bleeding prevention was achieved using a heater probe Patient's hgb 7.3 last night and repeat 7.5--received 2 Units of PRBC's total over night Hgb stable this morning at 8,6 Will continue to monitor H&H q6h We have started the patient on a clear liquid diet this morning and will advance as tolerated Cont protonix 40 q12h, carafate ordered GI on board We will cont to monitor the patient's progress (2) Syncope Status: Acute Response to Treatment: Stable Problem Text: possibly 2/2 GI Bleeding Event No events on telemetry noted Orthostatic vitals negative We will cont to monitor on telemetry for now (3) Hypertension Status: Chronic Response to Treatment: Stable Problem Text: will hold home medications in light of soft BP (4) Hyperlipidemia Status: Chronic Response to Treatment: Stable Problem Text: continue home medications (5) DVT prophylaxis Status: Acute Response to Treatment: Stable Problem Text: SCD TEDS Plan/VTE VTE Prophylaxis Ordered?: Yes VS, I&O, 24H, Fishbone Vital Signs/I&O Vital Signs Date Time Temp Pulse Resp B/P (MAP) Pulse Ox O2 Delivery O2 Flow Rate FiO2 02/02/17 07:40 98.0 92 18 124/60 (81) 95 Room Air 02/01/17 23:45 2.0 I&O- Last 24 Hours up to 6 AM 02/02/17 06:00 Intake Total 4900 ml Output Total 1400 ml Balance 3500 ml Laboratory Data 24H LABS Laboratory Tests 2 02/02/17 04:42: White Blood Count 4.1, Red Blood Count 3.14L, Hemoglobin 8.6L, Hematocrit 26.3L , Mean Corpuscular Volume 83.8, Mean Corpuscular Hemoglobin 27.4, Mean Corpuscular Hemoglobin Concent 32.7, Red Cell Distribution Width 14.9H, Platelet Count 146L, Neutrophils (%) (Auto) 62.1, Lymphocytes (%) (Auto) 24.9, Monocytes (%) (Auto) 5.6H, Eosinophils (%) (Auto) 4.9H, Basophils (%) (Auto) 0.7 , Neutrophils # (Auto) 2.6, Lymphocytes # (Auto) 1.1L, Monocytes # (Auto) 0.2, Eosinophils # (Auto) 0.2, Basophils # (Auto) 0.0, Large Unclassified Cells % 1.7 , Large Unclassified Cells # 0.1, Anion Gap 5L, Glomerular Filtration Rate > 60.0, Blood Urea Nitrogen 14, Creatinine 0.59, Sodium Level 143, Potassium Level 3.8, Chloride Level 114H, Carbon Dioxide Level 24, Calcium Level 7.9L CBC/BMP Laboratory Tests 02/01/17 15:43 Red Blood Count 3.21 L, Mean Corpuscular Volume 81.1, Mean Corpuscular Hemoglobin 26.2 L, Mean Corpuscular Hemoglobin Concent 32.3, Red Cell Distribution Width 15.2 H 02/01/17 19:57 02/02/17 00:55 02/02/17 04:42 Red Blood Count 3.14 L, Mean Corpuscular Volume 83.8, Mean Corpuscular Hemoglobin 27.4, Mean Corpuscular Hemoglobin Concent 32.7, Red Cell Distribution Width 14.9 H, Neutrophils (%) (Auto) 62.1, Lymphocytes (%) (Auto) 24.9, Monocytes (%) (Auto) 5.6 H, Eosinophils (%) (Auto) 4.9 H, Basophils (%) ( Auto) 0.7, Neutrophils # (Auto) 2.6, Lymphocytes # (Auto) 1.1 L, Monocytes # ( Auto) 0.2, Eosinophils # (Auto) 0.2, Basophils # (Auto) 0.0, Calcium Level 7.9 L 02/02/17 08:00 JAJA VEGA MD Feb 02, 2017 10:27
--- NOTE | 2017-02-02 22:20 | CR ---
DATE OF CONSULTATION: 02/01/2017 HISTORY: This is a 56-year white female who was admitted approximately 12 hours previously for acute onset of gastrointestinal (GI) bleeding. The patient is status post gastric bypass surgery two years ago and about 18 months ago, she had an episode of GI bleeding from what was felt to be a gastric ulcer. She has history of cerebrovascular accident (CVA) three years ago with residual of left upper and lower extremity. She has a known diagnosis of factor V Leiden deficiency and takes baby aspirin to prevent recurrence of strokes. The patient has a history of hypertension and relates that last night in the evening, she had sudden onset of syncope. The patient awoke in the morning and had a large bowel movement which was hemalatha in nature. No apparent hematemesis. No nausea or vomiting. The patient has lost weight from her gastric bypass surgery. Now admitted for upper endoscopy and evaluation for GI bleed. MEDICATIONS AT HOME: Include baby aspirin, atorvastatin, cyanocobalamin, vitamin D, iron medication, fluoxetine, and metoprolol, Lopressor and multivitamin, and omeprazole 40 mg once a day. ALLERGIES: No known declared allergies. PAST MEDICAL HISTORY: 1. CVA three years ago, left-sided deficit. 2. Hypertension. 3. Factor V Leiden deficiency. 4. History of ulcer bleed approximately 18 months ago. FAMILY HISTORY: Noncontributory to the above problem. SOCIAL HISTORY: Cigarettes, alcohol the patient denies. REVIEW OF SYSTEMS: A 10-point review of systems noncontributory to above problem. PHYSICAL EXAMINATION: GENERAL: Well-developed, well-nourished white female in no obvious acute distress. Appears stated age. CHEST: Clear to auscultation. CARDIOVASCULAR: Exam showed regular rhythm. No murmurs, gallops. Normal physiological split S1 to S2. ABDOMEN: Soft, nontender. No masses, guarding, rebound, hepatosplenomegaly. Bowel sounds positive. EXTREMITIES: No cyanosis, clubbing, edema. Kaleigh's negative. LABORATORY STUDIES: On admission show a hemoglobin 9.1, hematocrit 28.8, last hemoglobin and hematocrit were 8.4 and 26.0. The patient's chemistry was completely normal. Liver functions were normal. INR is 1.11. ANALYSIS: Gastrointestinal (GI) bleeding of unknown etiology at the present time. PLAN: 1. The patient to have upper endoscopy, possible cauterization of a recurrence of gastric ulcer. 2. Esophagogastroduodenoscopy (EGD) today. 3. Obtain frequent tests to follow the hemoglobin and hematocrit. Transfuse as needed. 4. Intravenous (IV) Protonix. 5. If the patient's upper endoscopy is inconclusive, then consideration will have to be entertained for possible diverticular right-sided bleed. Possible red blood cell (RBC) nuclear scan may be needed. If this is the case, and 80% of lower GI bleeds usually stop spontaneously. The patient has had a previous upper and lower endoscopy, unclear when the last colonoscopy was. In 2014, she had a colonoscopy by myself which was a screening. She had some hemorrhoids, a small polyp was removed at 55 cm, and the patient had, otherwise exam was essentially normal.
[2017-02-03 04:00] VITALS: BP_SYST 137; BP_SYST 160; BP_SYST 168; BP_DIAS 72; BP_DIAS 80; BP_DIAS 94
[2017-02-03] MEDS: SUCRALFATE SUSP 1GM/10ML UD PO SCH ×4 (05:45→23:18)
[2017-02-03 05:51] LABS: BASO % 0.9 % (0.0-1.0); EOS # 0.3 K/mm3 (0.0-0.50); EOS % 7.5 % (0.0-3.0); LARGE UNSTAINED CELL # 0.1 K/mm3 (0.0-0.4); LYMPH % 25.9 % (24.0-44.0); MEAN CORPUSCULAR HEMOGLOBIN 27.2 pg (27.0-33.0); MEAN CORPUSCULAR HGB CONC 33.2 g/dl (32.0-36.5); MONO # 0.2 K/mm3 (0.0-0.8); MONO % 6.6 % (0.0-5.0); NEUTROPHILS # 2.1 K/mm3 (1.8-7.7); NEUTROPHILS % 57.2 % (36.0-66.0); PLATELET COUNT, AUTOMATED 134 k/mm3 (150-450); RED CELL DISTRIBUTION WIDTH 14.8 % (11.5-14.5); WHITE BLOOD COUNT 3.7 K/mm3 (4.0-10.0)
[2017-02-03 06:14] LABS: CALCIUM LEVEL 8.3 MG/DL (8.5-10.1); CARBON DIOXIDE LEVEL 28 MEQ/L (21-32); CHLORIDE LEVEL 110 MEQ/L (98-107); CREATININE FOR GFR 0.66 MG/DL (0.55-1.02); GLUCOSE, FASTING 95 MG/DL (70-105); POTASSIUM SERUM 3.5 MEQ/L (3.5-5.1); SODIUM LEVEL 144 MEQ/L (136-145)
[2017-02-03 06:34] LABS: BLOOD UREA NITROGEN 7 MG/DL (7-18)
[2017-02-03 07:37] LABS: ANION GAP 6 MEQ/L (8-16)
[2017-02-03 07:40] VITALS: BP 125/83
[2017-02-03] MEDS: PANTOPRAZOLE 40MG INJ (PROTONIX) (C9113) IV SCH (08:39)
[2017-02-03] MEDS: FLUoxetine 10 MG CAP PO SCH (08:39)
[2017-02-03] MEDS: FERROUS SULFATE 325MG TAB PO SCH (08:39)
[2017-02-03] MEDS: ATORVASTATIN 20 MG TAB PO SCH (08:39)
--- NOTE | 2017-02-03 11:01 | IPNPDOC ---
Subjective Date Seen The patient was seen on 02/03/17. Subjective Chief Complaint/HPI The patient is a 56-year-old female admitted with a reason for visit of Upper Gi Bleed. General: Denies: Chills, Night Sweats Constitutional: Denies: Chills, Fever Eyes: Denies: Pain, Vision change ENT: Denies: Head Aches, Ear Pain Skin: Denies: Rash, Lesions Pulmonary: Denies: Dyspnea, Cough Cardiovascular: Denies: Chest Pain, Palpitations Gastrointestinal: Denies: Nausea, Vomiting, Abdominal Pain Genitourinary: Denies: Dysuria, Frequency Objective Physical Examination General Exam: Positive: Alert, Cooperative, No Acute Distress Eye Exam: Negative: Sclera icteric, Ptosis Neck Exam: Negative: JVD Chest Exam: Positive: Clear to auscultation, Normal air movement Heart Exam: Positive: Rate Normal, Normal S1, Normal S2, Negative: Gallops, Murmurs, Rubs Telemetry: Positive: No significant arrhythmia Abdomen Exam: Positive: Normal bowel sounds, Soft, Negative: Tenderness, Hepatospenomegaly Extremity Exam: Positive: Normal pulses, Negative: Clubbing, Cyanosis, Edema Psych Exam: Positive: Oriented x 3 Assessment /Plan Problems (1) GI bleeding Status: Acute Response to Treatment: Stable Problem Text: EGD results noted--no active source of bleeding identified, the patient did have hemostatic clips placed, and coagulation for bleeding prevention was achieved using a heater probe Hgb stable this morning at 8.4 Will continue to monitor H&H q6h Patient advanced to regular diet Cont protonix 40 q12h, carafate ordered GI on board--appreciate their input We will cont to monitor the patient's progress--Patient has yet to have a BM over the last 24hrs--we will continue to monitor for merlot colored stools, and H&H If patient's hgb remains stable and stool is wnl we can d/c in the AM If she has downtrending hgb or bloody stools we will order a nuclear scan for tomorrow (2) Syncope Status: Resolved Response to Treatment: Stable Problem Text: possibly 2/2 GI Bleeding Event No events on telemetry noted Orthostatic vitals negative We will cont to monitor for now (3) Hypertension Status: Chronic Response to Treatment: Stable (4) Hyperlipidemia Status: Chronic Response to Treatment: Stable Problem Text: continue home medications (5) DVT prophylaxis Status: Acute Response to Treatment: Stable Problem Text: SCD TEDS Plan/VTE VTE Prophylaxis Ordered?: Yes VS[facility] Signs/I&O Vital Signs Date Time Temp Pulse Resp B/P (MAP) Pulse Ox O2 Delivery O2 Flow Rate FiO2 02/03/17 07:40 95.3 85 20 125/83 (97) 98 Room Air 02/01/17 23:45 2.0 I&O- Last 24 Hours up to 6 AM 02/03/17 05:59 Intake Total 2807.5 ml Output Total 3825 ml Balance -1017.5 ml Laboratory Data 24H LABS Laboratory Tests 2 02/03/17 05:09: White Blood Count 3.7L, Red Blood Count 3.16L, Hemoglobin 8.6L, Hematocrit 25.9L , Mean Corpuscular Volume 82.0, Mean Corpuscular Hemoglobin 27.2, Mean Corpuscular Hemoglobin Concent 33.2, Red Cell Distribution Width 14.8H, Platelet Count 134L, Neutrophils (%) (Auto) 57.2, Lymphocytes (%) (Auto) 25.9, Monocytes (%) (Auto) 6.6H, Eosinophils (%) (Auto) 7.5H, Basophils (%) (Auto) 0.9 , Neutrophils # (Auto) 2.1, Lymphocytes # (Auto) 1.0L, Monocytes # (Auto) 0.2, Eosinophils # (Auto) 0.3, Basophils # (Auto) 0.0, Large Unclassified Cells % 2.0 , Large Unclassified Cells # 0.1, Anion Gap 6L, Blood Urea Nitrogen 7, Creatinine 0.66, Sodium Level 144, Potassium Level 3.5, Chloride Level 110H, Carbon Dioxide Level 28, Calcium Level 8.3L CBC/BMP Laboratory Tests 02/02/17 13:55 02/02/17 20:27 02/03/17 05:09 Red Blood Count 3.16 L, Mean Corpuscular Volume 82.0, Mean Corpuscular Hemoglobin 27.2, Mean Corpuscular Hemoglobin Concent 33.2, Red Cell Distribution Width 14.8 H, Neutrophils (%) (Auto) 57.2, Lymphocytes (%) (Auto) 25.9, Monocytes (%) (Auto) 6.6 H, Eosinophils (%) (Auto) 7.5 H, Basophils (%) ( Auto) 0.9, Neutrophils # (Auto) 2.1, Lymphocytes # (Auto) 1.0 L, Monocytes # ( Auto) 0.2, Eosinophils # (Auto) 0.3, Basophils # (Auto) 0.0, Calcium Level 8.3 L JAJA VEGA MD Feb 03, 2017 11:01
[2017-02-03 15:30] VITALS: BP 121/79
[2017-02-03 20:00] VITALS: BP_SYST 132; BP_SYST 138; BP_DIAS 68; BP_DIAS 72; BP_DIAS 95
[2017-02-03 20:04] VITALS: BP 128/77
[2017-02-03] MEDS: PANTOPRAZOLE 40MG TAB (PROTONIX) PO SCH (20:47)
[2017-02-04 00:25] VITALS: BP 135/91
[2017-02-04 06:00] VITALS: BP 128/67
[2017-02-04 06:04] VITALS: BP_SYST 128; BP_SYST 134; BP_SYST 135; BP_DIAS 67; BP_DIAS 72; BP_DIAS 79
[2017-02-04] MEDS: SUCRALFATE SUSP 1GM/10ML UD PO SCH (06:07)
[2017-02-04 07:04] LABS: BASO % 0.6 % (0.0-1.0); EOS # 0.3 K/mm3 (0.0-0.50); EOS % 6.2 % (0.0-3.0); LARGE UNSTAINED CELL # 0.1 K/mm3 (0.0-0.4); LARGE UNSTAINED CELL % 2.1 % (0.0-4.0); LYMPH # 1.4 K/mm3 (1.5-4.5); LYMPH % 25.6 % (24.0-44.0); MEAN CORPUSCULAR HEMOGLOBIN 27.6 pg (27.0-33.0); MEAN CORPUSCULAR HGB CONC 33.8 g/dl (32.0-36.5); MEAN CORPUSCULAR VOLUME 81.9 fl (80.0-96.0); MONO # 0.4 K/mm3 (0.0-0.8); MONO % 7.3 % (0.0-5.0); NEUTROPHILS # 3.1 K/mm3 (1.8-7.7); NEUTROPHILS % 58.1 % (36.0-66.0); PLATELET COUNT, AUTOMATED 169 k/mm3 (150-450); RED CELL DISTRIBUTION WIDTH 14.7 % (11.5-14.5); WHITE BLOOD COUNT 5.3 K/mm3 (4.0-10.0)
[2017-02-04 07:32] LABS: ANION GAP 5 MEQ/L (8-16); BLOOD UREA NITROGEN 6 MG/DL (7-18); CALCIUM LEVEL 8.8 MG/DL (8.5-10.1); CARBON DIOXIDE LEVEL 30 MEQ/L (21-32); CHLORIDE LEVEL 110 MEQ/L (98-107); GLOMERULAR FILTRATION RATE > 60.0 (>51); GLUCOSE, FASTING 96 MG/DL (70-105); POTASSIUM SERUM 3.5 MEQ/L (3.5-5.1); SODIUM LEVEL 145 MEQ/L (136-145)
[2017-02-04 08:00] VITALS: BP 138/86
[2017-02-04] MEDS: ATORVASTATIN 20 MG TAB PO SCH (08:42)
[2017-02-04] MEDS: PANTOPRAZOLE 40MG TAB (PROTONIX) PO SCH (08:42)
[2017-02-04] MEDS: FERROUS SULFATE 325MG TAB PO SCH (08:42)
[2017-02-04] MEDS: FLUoxetine 10 MG CAP PO SCH (08:42)
--- NOTE | 2017-02-04 11:47 | DS.PDOC ---
Discharge Summary General Date of Admission Feb 01, 2017 at 03:51 Date of Discharge 02/04/17 Specialist/Consultants Involve: Ranjith Anne Discharge Summary PROCEDURES PERFORMED DURING STAY: EGD on 02/01/17 ADMITTING DIAGNOSES: 1. . GI bleeding DISCHARGE DIAGNOSES: 1. . GI bleeding COMPLICATIONS/CHIEF COMPLAINT: Upper Gi Bleed. HISTORY OF PRESENT ILLNESS: . 56-year-old female with past medical history of CVA, morbid obesity status post gastric bypass, history of gastric ulcer disease, hypertension, dyslipidemia, and recent right knee replacement in December/2016 presents to the ER with a chief complaint of merlot colored stools and an associated syncopal event. According to the patient she noted maroon dark-colored stools per 24 hours prior to her presentation here. She states that after getting up from having the aforementioned stools she started to feel dizzy and fell on the carpeted floor. She denied any trauma to the head. She states that she never lost consciousness and denies any complaints of fevers, chills, chest pain, palpitations, shortness of breath, or any nausea/vomiting/diarrhea. During this time, the patient does state that she has been having epigastric abdominal pain which she describes as crampy in nature. Of note, the patient was on anticoagulant therapy for one month following right knee surgery, but states that she has been off the Coumadin for over one week now. In the ER, the patient was noted to be hemodynamically stable with a hemoglobin of 9.1. Her INR level was noted to be within normal limits. The patient was admitted to the hospitalist service for further evaluation and management. During hospitalization, the patient's hemoglobin did drop to 7.3 and she was given 2 units of packed red blood cells. In addition, a GI consult was placed and the patient was seen by Dr. Anne. The patient did undergo an EGD on and this revealed no active source of bleeding identified, the patient did have hemostatic clips placed, and coagulation for bleeding prevention was achieved using a heater probe. Over the ensuing 48 hours, the patient had no more episodes of GI bleeding. This morning, the patient states that she had a bowel movement which was normal with no evidence of any blood. In addition, the patient's hemoglobin has remained stable. At this time, the patient states she is feeling much better and is eager to return home. I have advised the patient to follow-up with her primary care physician within one to 2 weeks. In addition , the patient is to follow-up with Dr. Anne of gastroenterology for her scheduled colonoscopy in 2018. She has been advised to follow up with him sooner if there are concerns for GI bleeding in the future. I have also advised the patient return to the ER if her symptoms of GI bleeding were to return or persist. DISCHARGE MEDICATIONS: Please see below. ALLERGIES: Please see below. PHYSICAL EXAMINATION ON DISCHARGE: VITAL SIGNS: Please see below. General Exam: Positive: Alert, Cooperative, No Acute Distress Eye Exam: Negative: Sclera icteric, Ptosis Neck Exam: Negative: JVD Chest Exam: Positive: Clear to auscultation, Normal air movement Heart Exam: Positive: Rate Normal, Normal S1, Normal S2, Negative: Gallops, Murmurs, Rubs Telemetry: Positive: No significant arrhythmia Abdomen Exam: Positive: Normal bowel sounds, Soft, Negative: Tenderness, Hepatospenomegaly Extremity Exam: Positive: Normal pulses, Negative: Clubbing, Cyanosis, Edema Psych Exam: Positive: Oriented x 3 LABORATORY DATA: Please see below. PROGNOSIS: Medically stable ACTIVITY: As tolerated. DIET: . 2 g low sodium diet DISCHARGE PLAN: Home DISPOSITION: 01 Home, Self-Care. DISCHARGE INSTRUCTIONS: 1. . Follow-up with primary care physician within one to 2 weeks 2. . Follow-up with Dr. Anne of GI as indicated 3. . Return to the ER if symptoms were to persist or worsen DISCHARGE CONDITION: Stable. TIME SPENT ON DISCHARGE: Greater than 30 minutes. Vital Signs/I&Os Vital Signs Date Time Temp Pulse Resp B/P (MAP) Pulse Ox O2 Delivery O2 Flow Rate FiO2 02/04/17 08:00 98.1 78 18 138/86 (103) 100 Room Air 02/01/17 23:45 2.0 I&O- Last 24 Hours up to 6 AM 02/04/17 06:00 Intake Total 2520 ml Output Total 2800 ml Balance -280 ml Laboratory Data Labs 24H Laboratory Tests 2 02/04/17 06:36: White Blood Count 5.3, Red Blood Count 3.31L, Hemoglobin 9.2L, Hematocrit 27.1L , Mean Corpuscular Volume 81.9, Mean Corpuscular Hemoglobin 27.6, Mean Corpuscular Hemoglobin Concent 33.8, Red Cell Distribution Width 14.7H, Platelet Count 169, Neutrophils (%) (Auto) 58.1, Lymphocytes (%) (Auto) 25.6, Monocytes (%) (Auto) 7.3H, Eosinophils (%) (Auto) 6.2H, Basophils (%) (Auto) 0.6 , Neutrophils # (Auto) 3.1, Lymphocytes # (Auto) 1.4L, Monocytes # (Auto) 0.4, Eosinophils # (Auto) 0.3, Basophils # (Auto) 0.0, Large Unclassified Cells % 2.1 , Large Unclassified Cells # 0.1, Anion Gap 5L, Glomerular Filtration Rate > 60.0, Blood Urea Nitrogen 6L, Creatinine 0.70, Sodium Level 145, Potassium Level 3.5, Chloride Level 110H, Carbon Dioxide Level 30, Calcium Level 8.8 CBC/BMP Laboratory Tests 02/03/17 12:14 02/03/17 18:10 02/04/17 00:11 02/04/17 06:36 Red Blood Count 3.31 L, Mean Corpuscular Volume 81.9, Mean Corpuscular Hemoglobin 27.6, Mean Corpuscular Hemoglobin Concent 33.8, Red Cell Distribution Width 14.7 H, Neutrophils (%) (Auto) 58.1, Lymphocytes (%) (Auto) 25.6, Monocytes (%) (Auto) 7.3 H, Eosinophils (%) (Auto) 6.2 H, Basophils (%) ( Auto) 0.6, Neutrophils # (Auto) 3.1, Lymphocytes # (Auto) 1.4 L, Monocytes # ( Auto) 0.4, Eosinophils # (Auto) 0.3, Basophils # (Auto) 0.0, Calcium Level 8.8 Discharge Medications Scheduled (Calcium Citrate + 315-200 mg-Unit) 1 Tab Tab, 1 TAB PO QHS, (Reported) Alpha Tocopheryl Acid Succinat (Vitamin E) 400 Unit Tab, 400 UNIT PO DAILY, ( Reported) Aspirin (Aspir-Low) 81 Mg Tab, 81 MG PO DAILY, (Reported) Atorvastatin Calcium (Atorvastatin Calcium) 40 Mg Tab, 40 MG PO DAILY, (Reported ) Cyanocobalamin (B-12) 1,000 Mcg Tab, 1,000 MCG PO DAILY, (Reported) Ergocalciferol (Vitamin D) 50,000 Unit Cap, 50,000 MG PO QWEEK, (Reported) ON SUNDAYS Ferrous Sulfate (Ferrous Sulfate) 325 Mg Tab, 325 MG PO DAILY, (Reported) Fluoxetine Hcl (Fluoxetine) 10 Mg Cap, 10 MG PO DAILY, (Reported) Metoprolol Tartrate (Lopressor) 50 Mg Tab, 50 MG PO DAILY, (Reported) Multivitamins *[facility] STOCKED* (Thera M Plus *[facility]OCK[facility]*) 1 Tab Tab, 2 TAB PO DAILY, (Reported) Omeprazole (Omeprazole) 40 Mg Cap, 40 MG PO DAILY, (Reported) Scheduled PRN Acetaminophen (Tylenol Extra Strength) 500 Mg Tab, 500 MG PO Q6H PRN for PAIN, ( Reported) Allergies Coded Allergies: No Known Allergies (Verified , 01/16/06) JAJA VEGA MD Feb 04, 2017 11:47
== END 2017-02-04 10:55 | disposition home or self-care (01) | DRG 253 ==
LOC: EDBD 01:12 → M ED 01:12 → M ED INP 03:51 → M PCU 19:04 → M MS5PR 02-03 15:04 → M PED 02-03 15:41
PROVIDERS: ADMIT Hospitalist; ATTEND Internal Medicine
PROC: 30233N1 Transfusion of Nonautologous Red Blood Cells into Peripheral Vein, Percutaneous Approach (ICD-10-PCS; 2017-02-01)
PROC: 0W3P8ZZ Control Bleeding in Gastrointestinal Tract, Via Natural or Artificial Opening Endoscopic (ICD-10-PCS; principal; 2017-02-01 15:44)
DX: K92.2 Gastrointestinal hemorrhage, unspecified (principal); D68.2 Hereditary deficiency of other clotting factors; I69.354 Hemiplegia and hemiparesis following cerebral infarction affecting left non-dominant side; I10 Essential (primary) hypertension; Z98.84 Bariatric surgery status; E78.5 Hyperlipidemia, unspecified; Z96.651 Presence of right artificial knee joint; Z79.01 Long term (current) use of anticoagulants; Z79.82 Long term (current) use of aspirin; Z79.899 Other long term (current) drug therapy

== ENCOUNTER 2017-02-20 17:44 | Emergency (ER) | payer BC ==
[~2017-02-20] VITALS: Ht 170.2 cm; Wt 99.1 kg
[~2017-02-20 17:44] MED LIST changes: +ASPI81TA21 PO; +B-1210009 PO; +FERR325T3 PO; +NATU400T PO; +TYLE500T78 PO; +VITMTA PO
[2017-02-20 19:32] LABS: EOS # 0.2 K/mm3 (0.0-0.50); EOS % 5.9 % (0.0-3.0); LARGE UNSTAINED CELL # 0.1 K/mm3 (0.0-0.4); LARGE UNSTAINED CELL % 2.5 % (0.0-4.0); LYMPH # 0.6 K/mm3 (1.5-4.5); LYMPH % 16.2 % (24.0-44.0); MEAN CORPUSCULAR HEMOGLOBIN 26.9 pg (27.0-33.0); MEAN CORPUSCULAR HGB CONC 32.5 g/dl (32.0-36.5); MEAN CORPUSCULAR VOLUME 82.9 fl (80.0-96.0); MONO # 0.3 K/mm3 (0.0-0.8); MONO % 7.5 % (0.0-5.0); NEUTROPHILS # 2.3 K/mm3 (1.8-7.7); NEUTROPHILS % 66.9 % (36.0-66.0); PLATELET COUNT, AUTOMATED 160 k/mm3 (150-450); RED CELL DISTRIBUTION WIDTH 14.8 % (11.5-14.5); WHITE BLOOD COUNT 3.4 K/mm3 (4.0-10.0)
--- NOTE | 2017-02-20 19:56 | ECGEPIP ---
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
[2017-02-20 20:03] LABS: ANION GAP 6 MEQ/L (8-16); BLOOD UREA NITROGEN 14 MG/DL (7-18); CALCIUM LEVEL 8.6 MG/DL (8.5-10.1); CARBON DIOXIDE LEVEL 27 MEQ/L (21-32); CHLORIDE LEVEL 107 MEQ/L (98-107); CREATININE FOR GFR 0.73 MG/DL (0.55-1.02); GLOMERULAR FILTRATION RATE > 60.0 (>51); GLUCOSE, FASTING 97 MG/DL (70-105); SODIUM LEVEL 140 MEQ/L (136-145)
--- NOTE | 2017-02-20 20:30 | REPUSA ---
CLINICAL HISTORY: Lightheadedness. COMPARISON: March 16, 2016. TECHNIQUE: Head CT without contrast Brain: No intracranial hemorrhage, hydrocephalus, acute parenchymal edema or evident mass. Stable alvarado earance of old small lacunar infarct in the right arnoldo. Calvarium: Unremarkable. Sinuses (partially visualized): Clear. Intracranial vessels: Atherosclerotic calcification of the anterior circulation. IMPRESSION: No acute intracranial findings.
[2017-02-20 21:09] VITALS: BP 140/90
[2017-02-20] MEDS ORDERED: MACR100C43 PO (21:35)
[2017-02-20] MEDS ORDERED: NITROFURANTOIN (MACROBID) 100 MG CAP PO ONE (21:45)
== END 2017-02-20 21:44 | disposition home or self-care (01) ==
LOC: M ED 17:44
DX: N39.0 Urinary tract infection, site not specified (principal); R42 Dizziness and giddiness; I10 Essential (primary) hypertension; D68.2 Hereditary deficiency of other clotting factors; Z86.73 Personal history of transient ischemic attack (TIA), and cerebral infarction without residual deficits; Z98.84 Bariatric surgery status; Z79.82 Long term (current) use of aspirin; Z79.899 Other long term (current) drug therapy

== ENCOUNTER → 2017-03-09 | Outpatient (CLI) | payer BC ==
[~2017-03-09] MED LIST changes: +MACR100C43 PO
[2017-03-09 11:10] LABS: IMMUNOGLOBULIN A 91.8 MG/DL (70-400)
[2017-03-12 11:17] LABS: PRETREATED FOLATE FOR RBCFOL 10.6 NG/ML
[2017-03-28 14:05] LABS: ANTI-IgA ANTIBODY SEE SEPARATE REPORT
== END ==
LOC: M LAB 09:59
DX: D64.9 Anemia, unspecified (principal)

== ENCOUNTER 2017-03-11 14:56 | Outpatient (CLI) | payer BC ==
[~2017-03-11] VITALS: Ht 170.2 cm; Wt 100.9 kg
[2017-03-11] VITALS (8 sets, daily range): BP systolic 106–140; BP diastolic 56–76
[2017-03-11] MEDS ORDERED: IRON SUCROSE 25 MG in NS 50 ML IV ONE (16:00)
[2017-03-11] MEDS ORDERED: IRON SUCROSE 75 MG in NS 100 ML IV ONE (17:00)
== END 2017-03-11 20:00 | disposition home or self-care (01) ==
LOC: M OPCLIPED 14:56 → M PED 14:58 → M OPCLIPED 20:00
PROVIDERS: ATTEND Family Medicine
DX: D64.9 Anemia, unspecified (principal); I10 Essential (primary) hypertension; E78.5 Hyperlipidemia, unspecified; F33.9 Major depressive disorder, recurrent, unspecified; G43.909 Migraine, unspecified, not intractable, without status migrainosus; E66.8 Other obesity; N72 Inflammatory disease of cervix uteri; M19.90 Unspecified osteoarthritis, unspecified site; D68.59 Other primary thrombophilia; Z86.73 Personal history of transient ischemic attack (TIA), and cerebral infarction without residual deficits; Z79.899 Other long term (current) drug therapy; Z87.891 Personal history of nicotine dependence
CPT/HCPCS: 96365; 96366; J1756

== ENCOUNTER → 2017-03-14 | Outpatient (REF) | payer BC ==
[2017-03-14 12:25] LABS: RETIC HEMOGLOBIN CONTENT CHr 28.6 PG (24-36); RETICULOCYTE % 2.6 % (0.5-1.5)
[2017-03-14 12:36] LABS: IMMUNOGLOBULIN A 95.5 MG/DL (70-400)
[2017-03-15 11:50] LABS: PRETREATED FOLATE FOR RBCFOL 9.8 NG/ML
[2017-03-28 14:05] LABS: ANTI-IgA ANTIBODY SEE SEPARATE REPORT
== END ==
LOC: M SFHCPLAZ 08:51
DX: D64.9 Anemia, unspecified (principal)

== ENCOUNTER 2017-03-20 08:36 | Outpatient (CLI) | payer BC ==
[~2017-03-20] VITALS: Ht 170.2 cm; Wt 100.9 kg
[2017-03-20] MEDS ORDERED: IRON SUCROSE 200 MG in NS 250 ML IV ONE (09:00)
== END 2017-03-20 11:40 | disposition home or self-care (01) ==
LOC: M INFU 08:36
PROVIDERS: ATTEND Family Medicine
DX: D50.9 Iron deficiency anemia, unspecified (principal); Z79.899 Other long term (current) drug therapy; Z79.82 Long term (current) use of aspirin
CPT/HCPCS: 96365; 96366; J1756

== ENCOUNTER 2017-03-27 08:53 | Outpatient (CLI) | payer BC ==
[~2017-03-27] VITALS: Ht 170.2 cm; Wt 100.9 kg
[2017-03-27] MEDS ORDERED: IRON SUCROSE 200 MG in NS 200 ML IV ONE (09:00)
== END 2017-03-27 12:00 | disposition home or self-care (01) ==
LOC: M INFU 08:53
PROVIDERS: ATTEND Family Medicine
DX: D50.9 Iron deficiency anemia, unspecified (principal); Z79.899 Other long term (current) drug therapy; Z79.82 Long term (current) use of aspirin
CPT/HCPCS: 96365; 96366; J1756

== ENCOUNTER → 2017-03-28 | Outpatient (CLI) | payer BC | LOC: M LAB 08:56 | DX: D50.8 Other iron deficiency anemias (principal) ==

== ENCOUNTER → 2017-04-03 | Outpatient (REF) | payer BC ==
[2017-04-03 16:12] LABS: MEAN CORPUSCULAR HEMOGLOBIN 27.2 pg (27.0-33.0); MEAN CORPUSCULAR HGB CONC 33.1 g/dl (32.0-36.5); MEAN CORPUSCULAR VOLUME 82.2 fl (80.0-96.0); RED CELL DISTRIBUTION WIDTH 14.7 % (11.5-14.5); WHITE BLOOD COUNT 4.3 K/mm3 (4.0-10.0)
== END ==
LOC: M LABDRAWP 15:52
PROVIDERS: ATTEND Student in an Organized Health Care Education/Training Program
DX: D50.8 Other iron deficiency anemias (principal)

== ENCOUNTER 2017-04-29 08:55 | Outpatient (CLI) | payer BC ==
[~2017-04-29] VITALS: Ht 170.2 cm; Wt 100.9 kg
[2017-04-29] MEDS ORDERED: IRON SUCROSE 25 MG in NS 50 ML IV ONE (09:30)
[2017-04-29] MEDS ORDERED: IRON SUCROSE 225 MG in NS 250 ML IV ONE (10:30)
== END 2017-04-29 14:15 | disposition home or self-care (01) ==
LOC: M INFU 08:55
PROVIDERS: ATTEND Family Medicine
DX: D50.8 Other iron deficiency anemias (principal); F17.210 Nicotine dependence, cigarettes, uncomplicated; Z79.899 Other long term (current) drug therapy
CPT/HCPCS: 96365; 96366; J1756

== ENCOUNTER → 2017-05-02 | Outpatient (CLI) | payer BC ==
[2017-05-02 09:29] LABS: BASO % 0.7 % (0.0-1.0); EOS # 0.2 10^3/uL (0.0-0.50); EOS % 5.5 % (0.0-3.0); IMMATURE GRANULOCYTE % 0.2 % (0-0); LYMPH # 1.3 10^3/uL (1.5-4.5); LYMPH % 30.6 % (24.0-44.0); MEAN CORPUSCULAR HEMOGLOBIN 25.6 pg (27.0-33.0); MEAN CORPUSCULAR HGB CONC 31.3 g/dl (32.0-36.5); MEAN CORPUSCULAR VOLUME 81.6 fl (80.0-96.0); MONO # 0.4 10^3/uL (0.0-0.8); MONO % 9.7 % (0.0-5.0); NEUTROPHILS # 2.3 10^3/uL (1.8-7.7); NEUTROPHILS % 53.3 % (36.0-66.0); PLATELET COUNT, AUTOMATED 143 10^3/uL (150-450); RED CELL DISTRIBUTION WIDTH 14.3 % (11.5-14.5); WHITE BLOOD COUNT 4.2 10^3/uL (4.0-10.0)
[2017-05-02 10:05] LABS: ANION GAP 5 MEQ/L (8-16); BLOOD UREA NITROGEN 13 MG/DL (7-18); CALCIUM LEVEL 9.2 MG/DL (8.5-10.1); CARBON DIOXIDE LEVEL 29 MEQ/L (21-32); CHLORIDE LEVEL 110 MEQ/L (98-107); GLOMERULAR FILTRATION RATE > 60.0 (>51); GLUCOSE, FASTING 90 MG/DL (70-105); POTASSIUM SERUM 4.4 MEQ/L (3.5-5.1); SODIUM LEVEL 144 MEQ/L (136-145)
== END ==
LOC: M LAB 08:54
PROVIDERS: ATTEND Student in an Organized Health Care Education/Training Program
DX: Z01.89 Encounter for other specified special examinations (principal)

== ENCOUNTER 2017-05-06 09:34 | Outpatient (CLI) | payer BC ==
[~2017-05-06] VITALS: Ht 170.2 cm; Wt 100.9 kg
[2017-05-06] MEDS ORDERED: IRON SUCROSE 25 MG in NS 50 ML IV ONE (10:00)
[2017-05-06] MEDS ORDERED: IRON SUCROSE 225 MG in NS 250 ML IV ONE (10:30)
[2017-05-06] MEDS ORDERED: ASPI81TA85 PO (12:00)
== END 2017-05-06 15:00 | disposition home or self-care (01) ==
LOC: M INFU 09:34
PROVIDERS: ATTEND Family Medicine
DX: D50.9 Iron deficiency anemia, unspecified (principal); K91.2 Postsurgical malabsorption, not elsewhere classified; Z98.84 Bariatric surgery status; Z96.651 Presence of right artificial knee joint; F17.210 Nicotine dependence, cigarettes, uncomplicated; Z79.899 Other long term (current) drug therapy
CPT/HCPCS: 96365; 96366; J1756

== ENCOUNTER 2017-05-16 10:58 | Outpatient (CLI) | payer BC ==
[~2017-05-16] VITALS: Ht 170.2 cm; Wt 98.2 kg
[2017-05-16] VITALS (7 sets, daily range): BP systolic 126–157; BP diastolic 72–85
[2017-05-16] MEDS ORDERED: IRON SUCROSE 25 MG in NS 50 ML IV ONE (12:00)
[2017-05-16] MEDS ORDERED: IRON SUCROSE 225 MG in NS 250 ML IV ONE (12:15)
== END 2017-05-16 17:02 | disposition home or self-care (01) ==
LOC: M OPCLI4PV 10:58 → M MSPAV 11:01 → M OPCLI4PV 17:02
PROVIDERS: ATTEND Family Medicine
DX: D50.9 Iron deficiency anemia, unspecified (principal); Z79.82 Long term (current) use of aspirin; Z79.899 Other long term (current) drug therapy
CPT/HCPCS: 96365; 96366; J1756

== ENCOUNTER 2017-05-23 11:07 | Outpatient (CLI) | payer BC ==
[~2017-05-23] VITALS: Ht 170.2 cm; Wt 98.2 kg
[2017-05-23] VITALS (8 sets, daily range): BP systolic 110–160; BP diastolic 58–86
[2017-05-23] MEDS ORDERED: IRON SUCROSE 25 MG in NS 50 ML IV ONE (12:00)
[2017-05-23] MEDS ORDERED: IRON SUCROSE 225 MG in NS 250 ML IV ONE (13:00)
== END 2017-05-23 18:00 | disposition home or self-care (01) ==
LOC: M OPCLIPED 11:07 → M PED 11:08 → M OPCLIPED 18:00
PROVIDERS: ATTEND Family Medicine
DX: D50.8 Other iron deficiency anemias (principal); Z79.82 Long term (current) use of aspirin; Z79.899 Other long term (current) drug therapy
CPT/HCPCS: 96365; 96366; J1756

== ENCOUNTER 2017-05-24 09:51 | Emergency (ER) | payer BC ==
[~2017-05-24] VITALS: Ht 170.2 cm; Wt 98.6 kg
[2017-05-24] MEDS ORDERED: ASPIRIN 81 MG CHEW TABLET PO ONE (10:45)
[2017-05-24 11:20] LABS: BASO % 0.9 % (0.0-1.0); EOS # 0.2 10^3/uL (0.0-0.50); EOS % 4.9 % (0.0-3.0); IMMATURE GRANULOCYTE % 0.2 % (0-0); LYMPH % 23.4 % (24.0-44.0); MEAN CORPUSCULAR HEMOGLOBIN 25.4 pg (27.0-33.0); MEAN CORPUSCULAR HGB CONC 31.2 g/dl (32.0-36.5); MEAN CORPUSCULAR VOLUME 81.5 fl (80.0-96.0); MONO # 0.4 10^3/uL (0.0-0.8); MONO % 8.8 % (0.0-5.0); NEUTROPHILS # 2.8 10^3/uL (1.8-7.7); NEUTROPHILS % 61.8 % (36.0-66.0); PLATELET COUNT, AUTOMATED 143 10^3/uL (150-450); WHITE BLOOD COUNT 4.5 10^3/uL (4.0-10.0)
--- NOTE | 2017-05-24 11:21 | REP ---
CHEST, TWO VIEWS: There is no evidence of acute infiltrate. No pleural effusion is seen. The heart is normal in size. The mediastinal silhouette is unremarkable. The visualized osseous structures are intact. IMPRESSION: No acute pulmonary disease. Signed by Eleazar Byrnes MD 05/27/2017 09:48 A
[2017-05-24 11:38] LABS: INR 0.97
[2017-05-24 11:48] LABS: ALBUMIN 3.6 GM/DL (3.2-5.2); ALBUMIN/GLOBULIN RATIO 1.13 (1.00-1.93); ALKALINE PHOSPHATASE 173 U/L (45-117); ALT/SGPT 62 U/L (12-78); ANION GAP 7 MEQ/L (8-16); AST/SGOT 40 U/L (15-37); BILIRUBIN,DIRECT 0.1 MG/DL (0.0-0.2); BILIRUBIN,TOTAL 0.4 MG/DL (0.2-1.0); BLOOD UREA NITROGEN 12 MG/DL (7-18); CALCIUM LEVEL 8.9 MG/DL (8.5-10.1); CARBON DIOXIDE LEVEL 27 MEQ/L (21-32); CHLORIDE LEVEL 108 MEQ/L (98-107); CREATININE FOR GFR 0.64 MG/DL (0.55-1.02); GLOMERULAR FILTRATION RATE > 60.0 (>51); GLUCOSE, FASTING 89 MG/DL (70-105); SODIUM LEVEL 142 MEQ/L (136-145); TOTAL PROTEIN 6.8 GM/DL (6.4-8.2)
[2017-05-24 12:43] VITALS: BP 151/88
--- NOTE | 2017-05-25 05:51 | ECGEPIP ---
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
== END 2017-05-24 12:45 | disposition home or self-care (01) ==
LOC: M ED 09:51
DX: R07.89 Other chest pain (principal); I10 Essential (primary) hypertension; E78.5 Hyperlipidemia, unspecified; E03.9 Hypothyroidism, unspecified; Z86.73 Personal history of transient ischemic attack (TIA), and cerebral infarction without residual deficits; Z87.891 Personal history of nicotine dependence; Z79.82 Long term (current) use of aspirin; Z79.899 Other long term (current) drug therapy

== ENCOUNTER → 2017-07-19 | Outpatient (CLI) | payer BC ==
[2017-07-19 09:41] LABS: BASO # 0.1 10^3/uL (0.0-0.2); BASO % 1.3 % (0.0-1.0); EOS # 0.4 10^3/uL (0.0-0.50); EOS % 7.3 % (0.0-3.0); IMMATURE GRANULOCYTE % 0.2 % (0-0); LYMPH # 1.5 10^3/uL (1.5-4.5); LYMPH % 28.1 % (24.0-44.0); MEAN CORPUSCULAR HEMOGLOBIN 26.1 pg (27.0-33.0); MEAN CORPUSCULAR HGB CONC 31.3 g/dl (32.0-36.5); MEAN CORPUSCULAR VOLUME 83.2 fl (80.0-96.0); MONO # 0.4 10^3/uL (0.0-0.8); MONO % 8.3 % (0.0-5.0); NEUTROPHILS # 2.9 10^3/uL (1.8-7.7); NEUTROPHILS % 54.8 % (36.0-66.0); PLATELET COUNT, AUTOMATED 206 10^3/uL (150-450); RED CELL DISTRIBUTION WIDTH 15.5 % (11.5-14.5); WHITE BLOOD COUNT 5.2 10^3/uL (4.0-10.0)
[2017-07-19 10:21] LABS: PERCENT SATURATION 29.8 % (13.2-45.0)
== END ==
LOC: M LAB 08:56
PROVIDERS: ATTEND Student in an Organized Health Care Education/Training Program
DX: D50.8 Other iron deficiency anemias (principal)

== ENCOUNTER → 2017-09-02 | Outpatient (REF) | payer BC | LOC: M SFHCPLAZ 17:10 | DX: K62.5 Hemorrhage of anus and rectum (principal) ==

== ENCOUNTER → 2017-09-03 | Outpatient (CLI) | payer BC ==
[2017-09-03 12:46] LABS: HEMATOCRIT 37.6 % (36.0-47.0); HEMOGLOBIN 11.9 g/dl (12.0-16.0); MEAN CORPUSCULAR HEMOGLOBIN 27.3 pg (27.0-33.0); MEAN CORPUSCULAR HGB CONC 31.6 g/dl (32.0-36.5); MEAN CORPUSCULAR VOLUME 86.2 fl (80.0-96.0); PLATELET COUNT, AUTOMATED 177 10^3/uL (150-450); RED BLOOD COUNT 4.36 10^6/uL (4.00-5.40); RED CELL DISTRIBUTION WIDTH 14.1 % (11.5-14.5); WHITE BLOOD COUNT 5.1 10^3/uL (4.0-10.0)
== END ==
LOC: M LAB 11:34
DX: K62.5 Hemorrhage of anus and rectum (principal)

== ENCOUNTER → 2017-11-01 | Outpatient (REF) | payer BC ==
[2017-11-01 20:36] LABS: CHLAMYDIA DNA AMPLIFICATION NEGATIVE (NEGATIVE); GC DNA AMPLIFICATION NEGATIVE (NEGATIVE)
== END ==
LOC: M SFHCPLAZ 16:59
DX: N93.9 Abnormal uterine and vaginal bleeding, unspecified (principal)
CPT/HCPCS: 87591

== ENCOUNTER → 2017-11-18 | Outpatient (REF) | payer BC | LOC: M SFHCWAGY 10:01 | DX: N95.0 Postmenopausal bleeding (principal); R93.8 Abnormal findings on diagnostic imaging of other specified body structures | CPT/HCPCS: 88305 ==

== ENCOUNTER → 2017-12-06 | Outpatient (CLI) | payer BC ==
[2017-12-06 11:35] LABS: HEMATOCRIT 38.6 % (36.0-47.0)
[2017-12-06 11:35] LABS: BASO # 0.1 10^3/uL (0.0-0.2); BASO % 1.2 % (0.0-1.0); EOS # 0.4 10^3/uL (0.0-0.50); EOS % 6.9 % (0.0-3.0); HEMATOCRIT 38.6 % (36.0-47.0); HEMOGLOBIN 12.3 g/dl (12.0-15.5); IMMATURE GRANULOCYTE % 0.2 % (0-3.0); LYMPH % 19.5 % (24.0-44.0); MEAN CORPUSCULAR HEMOGLOBIN 27.1 pg (27.0-33.0); MEAN CORPUSCULAR HGB CONC 31.9 g/dl (32.0-36.5); MONO # 0.5 10^3/uL (0.0-0.8); MONO % 9.3 % (0.0-5.0); NEUTROPHILS # 3.2 10^3/uL (1.8-7.7); NEUTROPHILS % 62.9 % (36.0-66.0); PLATELET COUNT, AUTOMATED 152 10^3/uL (150-450); RED BLOOD COUNT 4.54 10^6/uL (4.00-5.40); RED CELL DISTRIBUTION WIDTH 13.3 % (11.5-14.5); WHITE BLOOD COUNT 5.1 10^3/uL (4.0-10.0)
[2017-12-06 12:01] LABS: TOTAL 25(OH) VITAMIN D 30.9 NG/ML (30.0-100.0)
[2017-12-06 12:02] LABS: VITAMIN B12 LEVEL 513 PG/ML (247-911)
[2017-12-06 12:23] LABS: ALBUMIN 3.8 GM/DL (3.2-5.2); ALBUMIN/GLOBULIN RATIO 1.36 (1.00-1.93); ALKALINE PHOSPHATASE 121 U/L (45-117); ALT/SGPT 37 U/L (12-78); ANION GAP 7 MEQ/L (8-16); AST/SGOT 23 U/L (7-37); BILIRUBIN,TOTAL 0.4 MG/DL (0.2-1.0); BLOOD UREA NITROGEN 16 MG/DL (7-18); CARBON DIOXIDE LEVEL 29 MEQ/L (21-32); CHLORIDE LEVEL 107 MEQ/L (98-107); CREATININE FOR GFR 0.75 MG/DL (0.55-1.30); FERRITIN 90 NG/ML (8-252); GLOMERULAR FILTRATION RATE > 60.0 (>51); GLUCOSE, FASTING 93 MG/DL (70-100); IRON (FE) 60 UG/DL (50-170); MAGNESIUM LEVEL 2.1 MG/DL (1.8-2.4); PERCENT SATURATION 19.7 % (13.2-45.0); PHOSPHORUS LEVEL 3.7 MG/DL (2.5-4.9); POTASSIUM SERUM 4.5 MEQ/L (3.5-5.1); SODIUM LEVEL 143 MEQ/L (136-145); TOTAL IRON BINDING CAPACITY 305 UG/DL (250-450); TOTAL PROTEIN 6.6 GM/DL (6.4-8.2)
[2017-12-06 12:39] LABS: ESTIMATED AVERAGE GLUCOSE 114 MG/DL (60-110); HEMOGLOBIN A1c 5.6 %
[2017-12-06 13:40] LABS: PRETREATED FOLATE FOR RBCFOL 11.7 NG/ML; RBC FOLATE 636.5 NG/ML (280-791)
== END ==
LOC: M LAB 08:04
DX: K91.2 Postsurgical malabsorption, not elsewhere classified (principal); E55.9 Vitamin D deficiency, unspecified; Z98.84 Bariatric surgery status
CPT/HCPCS: 83550

== ENCOUNTER → 2018-04-26 | Outpatient (REF) | payer OTHER ==
[2018-04-26 23:07] LABS: AMORPHOUS SEDIMENT SMALL (NEGATIVE); APPEARANCE, URINE CLOUDY (CLEAR); BACTERIA, URINE AUTO NEGATIVE (NEGATIVE); BILIRUBIN, URINE AUTO NEGATIVE (NEGATIVE); BLOOD, URINE BLOOD 3+ (NEGATIVE); COLOR, URINE RED (YELLOW); GLUCOSE, URINE (UA) AUTO NEGATIVE (NEGATIVE); KETONE, URINE AUTO NEGATIVE (NEGATIVE); LEUKOCYTE ESTERASE, URINE AUTO 2+ (NEGATIVE); MUCUS, URINE SMALL (NEGATIVE); NITRITE, URINE AUTO NEGATIVE (NEGATIVE); PROTEIN, URINE AUTO 2+ mg/dL (NEGATIVE); RBC, URINE AUTO TNTC /HPF (0-3); SPECIFIC GRAVITY URINE AUTO 1.015 (1.002-1.035); SQUAMOUS EPITHELIAL CELL UR AU 10 /HPF (0-6); TRANSITIONAL EPITHELIAL AUTO 8 /HPF; UROBILINOGEN, URINE AUTO 0.2 mg/dL (0.0-2.0); WBC, URINE AUTO TNTC /HPF (0-3)
== END ==
LOC: M LAB REF 22:34
DX: N39.0 Urinary tract infection, site not specified (principal)

== ENCOUNTER → 2018-05-05 | Outpatient (REF) | payer OTHER ==
[2018-05-05 18:20] LABS: ANION GAP 6 MEQ/L (8-16); BLOOD UREA NITROGEN 12 MG/DL (7-18); CALCIUM LEVEL 8.8 MG/DL (8.5-10.1); CARBON DIOXIDE LEVEL 29 MEQ/L (21-32); CHLORIDE LEVEL 107 MEQ/L (98-107); CREATININE FOR GFR 0.71 MG/DL (0.55-1.30); GLOMERULAR FILTRATION RATE > 60.0 (>51); GLUCOSE, FASTING 96 MG/DL (70-100); POTASSIUM SERUM 4.5 MEQ/L (3.5-5.1); SODIUM LEVEL 142 MEQ/L (136-145)
== END ==
LOC: M SFHCPLAZ 15:09
DX: I10 Essential (primary) hypertension (principal)

== ENCOUNTER → 2018-05-08 | Outpatient (CLI) | payer OTHER ==
[~2018-05-08] MED LIST changes: -ASPI1TAB PO; -ASPI81CH PO; -ASPI81TA21 PO; -ASPI81TA85 PO; -ATOR40TA75 PO; -B-1210009 PO; -BACT800T5 PO; -CALCTAB88 PO; -CALCTAB97 PO; -COUM2.5T17 PO; -DRIS50002 PO; -FAMO1TAB11 PO; -FERR325T3 PO; -FLUO10CA8 PO; -FLUO10CA9 PO; -HAIR1TAB2 PO; -IRON50TA PO; +ISOVUE-370 76% 100ML VIAL (Q9967) As Ordered; -LIPI10TA PO; -LISI5TAB PO; -LOPR1TAB6 PO; -LOPR50TA PO; -MACR100C43 PO; -METO50TA7 PO; -MULTCAP PO; -NATU400T PO; -NO HISTORICAL MEDS; -OMEP40CA2 PO; -PERC5TAB12 PO; -POTA10CA32 PO; -SUCR1TA PO; -TYLE500T78 PO; -VITA100L PO; -VITA100T20 PO; -VITA1CAP40 PO; -VITA400C35 PO; -VITA500046 PO; -VITA500T3 PO; -VITACHTA PO; -VITAPOW41 XX; -VITMTA PO; -[UNRECOGNIZED DRUG - CODE] XX
== END ==
LOC: M RAD 17:33
DX: R31.0 Gross hematuria (principal); K42.9 Umbilical hernia without obstruction or gangrene; Z90.49 Acquired absence of other specified parts of digestive tract; Z98.84 Bariatric surgery status
CPT/HCPCS: Q9967

== ENCOUNTER 2018-05-14 09:52 | Day surgery (SDC) | payer OTHER ==
[~2018-05-14 09:52] MED LIST changes: -ISOVUE-370 76% 100ML VIAL (Q9967) As Ordered; +LIDOCAINE 1% MDV 20ML VIAL SQ
[2018-05-14] MEDS ORDERED: PROPOFOL 200 MG/20 ML VIAL As Ordered ×2 (10:07→14:26)
[2018-05-14] MEDS ORDERED: LIDOCAINE 2% INJ 100 MG/5 ML SDV (FOR ANES.) As Ordered (10:07)
[2018-05-14] MEDS ORDERED: MIDAZOLAM INJ 2 MG/2 ML VIAL (J2250) As Ordered (10:08)
[2018-05-14] MEDS ORDERED: dexameTHASONE 4 MG/ML 1ML VIAL (J1100) As Ordered (10:08)
[2018-05-14] MEDS ORDERED: fentaNYL 100 MCG/2 ML INJECTION (J3010) As Ordered (10:08)
[2018-05-14] MEDS ORDERED: KETOROLAC 60 MG/2 ML VIAL (J1885) As Ordered (10:08)
[2018-05-14] MEDS ORDERED: ONDANSETRON 4MG/2ML VIAL (J2405) As Ordered (10:08)
[2018-05-14 10:21] LABS: HEMATOCRIT 36.7 % (36.0-47.0); HEMOGLOBIN 11.8 g/dl (12.0-15.5); MEAN CORPUSCULAR HEMOGLOBIN 27.2 pg (27.0-33.0); MEAN CORPUSCULAR HGB CONC 32.2 g/dl (32.0-36.5); MEAN CORPUSCULAR VOLUME 84.6 fl (80.0-96.0); PLATELET COUNT, AUTOMATED 143 10^3/uL (150-450); RED BLOOD COUNT 4.34 10^6/uL (4.00-5.40); RED CELL DISTRIBUTION WIDTH 13.5 % (11.5-14.5); WHITE BLOOD COUNT 3.9 10^3/uL (4.0-10.0)
[2018-05-14] MEDS: LR 1,000 ML IV (12:20)
[2018-05-14] MEDS: LIDOCAINE 1% MDV 20ML VIAL As Ordered (14:24)
[2018-05-14] MEDS ORDERED: KETOROLAC 30 MG/ML VIAL (J1885) IV (15:15)
[2018-05-14] MEDS ORDERED: LR 1,000 ML IV (15:15)
[2018-05-14] MEDS ORDERED: fentaNYL 100 MCG/2 ML INJECTION (J3010) IV (15:15)
[2018-05-14] MEDS ORDERED: PERCOCET 5MG/325MG TAB PO (15:15)
[2018-05-14] MEDS ORDERED: ONDANSETRON 4MG/2ML VIAL (J2405) IV (15:15)
== END 2018-05-14 16:07 | disposition home or self-care (01) ==
LOC: M SDC 09:52
DX: N95.0 Postmenopausal bleeding (principal); Z87.891 Personal history of nicotine dependence; Z86.73 Personal history of transient ischemic attack (TIA), and cerebral infarction without residual deficits; Z79.82 Long term (current) use of aspirin; I10 Essential (primary) hypertension; K21.9 Gastro-esophageal reflux disease without esophagitis; E78.00 Pure hypercholesterolemia, unspecified
CPT/HCPCS: 58563

== ENCOUNTER → 2018-05-20 | Outpatient (REF) | payer OTHER ==
[2018-05-20 17:53] LABS: APPEARANCE, URINE CLEAR (CLEAR); BACTERIA, URINE AUTO 1+ (NEGATIVE); BILIRUBIN, URINE AUTO NEGATIVE (NEGATIVE); BLOOD, URINE BLOOD 1+ (NEGATIVE); COLOR, URINE STRAW (YELLOW); GLUCOSE, URINE (UA) AUTO NEGATIVE (NEGATIVE); KETONE, URINE AUTO NEGATIVE (NEGATIVE); LEUKOCYTE ESTERASE, URINE AUTO NEGATIVE (NEGATIVE); NITRITE, URINE AUTO NEGATIVE (NEGATIVE); PROTEIN, URINE AUTO NEGATIVE (NEGATIVE); RBC, URINE AUTO 0 /HPF (0-3); SPECIFIC GRAVITY URINE AUTO 1.005 (1.002-1.035); SQUAMOUS EPITHELIAL CELL UR AU 0 /HPF (0-6); UROBILINOGEN, URINE AUTO 0.2 mg/dL (0.0-2.0); WBC, URINE AUTO 0 /HPF (0-3)
== END ==
LOC: M SMT 17:08
DX: R31.0 Gross hematuria (principal)
CPT/HCPCS: 81001

== ENCOUNTER → 2018-06-11 | Outpatient (REF) | payer OTHER ==
[2018-06-11 14:05] LABS: APPEARANCE, URINE CLEAR (CLEAR); BACTERIA, URINE AUTO NEGATIVE (NEGATIVE); BILIRUBIN, URINE AUTO NEGATIVE (NEGATIVE); BLOOD, URINE BLOOD NEGATIVE (NEGATIVE); COLOR, URINE COLORLESS (YELLOW); GLUCOSE, URINE (UA) AUTO NEGATIVE (NEGATIVE); KETONE, URINE AUTO NEGATIVE (NEGATIVE); LEUKOCYTE ESTERASE, URINE AUTO NEGATIVE (NEGATIVE); MUCUS, URINE SMALL (NEGATIVE); NITRITE, URINE AUTO NEGATIVE (NEGATIVE); PROTEIN, URINE AUTO NEGATIVE (NEGATIVE); RBC, URINE AUTO 0 /HPF (0-3); SPECIFIC GRAVITY URINE AUTO 1.004 (1.002-1.035); SQUAMOUS EPITHELIAL CELL UR AU 0 /HPF (0-6); UROBILINOGEN, URINE AUTO 0.2 mg/dL (0.0-2.0); WBC, URINE AUTO 0 /HPF (0-3)
== END ==
LOC: M SMT 13:19
DX: R31.0 Gross hematuria (principal)
CPT/HCPCS: 81001

== ENCOUNTER 2018-06-25 11:35 | Day surgery (SDC) | payer OTHER ==
[2018-06-25] MEDS: NS 1,000 ML IV (11:45)
[2018-06-25] MEDS ORDERED: LIDOCAINE 2% INJ 100 MG/5 ML SDV (FOR ANES.) As Ordered (12:50)
[2018-06-25] MEDS ORDERED: PROPOFOL 200 MG/20 ML VIAL As Ordered ×2 (12:50)
[2018-06-25] MEDS ORDERED: fentaNYL 100 MCG/2 ML INJECTION (J3010) As Ordered (12:51)
== END 2018-06-25 14:46 | disposition home or self-care (01) ==
LOC: M OPP 11:35
DX: Z86.010 Personal history of colon polyps (principal); K64.0 First degree hemorrhoids; K28.7 Chronic gastrojejunal ulcer without hemorrhage or perforation; Z98.84 Bariatric surgery status
CPT/HCPCS: G0105

== ENCOUNTER 2018-07-23 10:03 | Outpatient (RCR) | payer OTHER ==
[~2018-07-23 10:03] MED LIST changes: +ACET30TAB PO; +ASPI1TAB PO; +ASPI81CH PO; +ASPI81TA21 PO; +ASPI81TA85 PO; +ATOR40TA75 PO; +B-1210009 PO; +BACT800T5 PO; +CALC-176 PO; +CALCTAB88 PO; +CALCTAB97 PO; +COUM2.5T17 PO; +DOXY100C PO; +DRIS50003 PO; +FAMO1TAB11 PO; +FERR325T3 PO; +FLUO10CA8 PO; +FLUO10CA9 PO; +FLUO40CA PO; +HAIR1TAB2 PO; +HAIR1TAB5 PO; +IRON50TA PO; -LIDOCAINE 1% MDV 20ML VIAL SQ; +LIPI10TA PO; +LISI5TAB PO; +LOPR1TAB6 PO; +LOPR50TA PO; +MACR100C43 PO; +METO50TA7 PO; +MISO200T56 PO; +MULTCAP PO; +NATU400T PO; +NO HISTORICAL MEDS; +OMEP40CA2 PO; +PERC5TAB12 PO; +POTA10CA32 PO; +SUCR1TA PO; +TYLE500T78 PO; +VITA100L PO; +VITA100T20 PO; +VITA400C35 PO; +VITA500046 PO; +VITA50005 PO; +VITA500T3 PO; +VITACHTA PO; +VITAPOW41 XX; +VITMTA PO; +[UNRECOGNIZED DRUG - CODE] XX
== END 2018-08-04 ==
LOC: M PT 10:03
PROVIDERS: ATTEND Urology Pediatric Urology
DX: N30.01 Acute cystitis with hematuria (principal); N39.8 Other specified disorders of urinary system

== ENCOUNTER 2018-08-27 08:45 | Outpatient (RCR) | payer OTHER | END 2018-09-04 | LOC: M PT 08:45 | PROVIDERS: ATTEND Urology Pediatric Urology | DX: Z51.89 Encounter for other specified aftercare (principal); N30.01 Acute cystitis with hematuria; N39.8 Other specified disorders of urinary system ==

== ENCOUNTER 2018-09-17 09:31 | Outpatient (RCR) | payer OTHER | END 2018-10-02 | LOC: M PT 09:31 | PROVIDERS: ATTEND Urology Pediatric Urology | DX: Z51.89 Encounter for other specified aftercare (principal); N30.01 Acute cystitis with hematuria; N39.8 Other specified disorders of urinary system ==

== ENCOUNTER → 2018-09-22 | Outpatient (CLI) | payer OTHER ==
[2018-09-22 15:32] LABS: BLOOD UREA NITROGEN 17 MG/DL (7-18); CALCIUM LEVEL 8.6 MG/DL (8.5-10.1); CARBON DIOXIDE LEVEL 27 MEQ/L (21-32); CHLORIDE LEVEL 107 MEQ/L (98-107); CREATININE FOR GFR 0.83 MG/DL (0.55-1.30); GLOMERULAR FILTRATION RATE > 60.0 (>51); GLUCOSE, FASTING 100 MG/DL (70-100); POTASSIUM SERUM 3.8 MEQ/L (3.5-5.1); SODIUM LEVEL 141 MEQ/L (136-145)
--- NOTE | 2018-09-23 02:09 | REP ---
Clinical: Right ankle pain. Technique: AP, lateral, bilateral oblique views of the right ankle. Findings: Mild osteopenia and age-related degenerative changes occlude subtle spurring along the tip of the medial malleolus. Tibial plafond and ankle mortise appears intact and normal. No acute fracture dislocation. Lateral view demonstrates moderate calcaneal heal spur. Impression: Mild osteopenia and age-related degenerative change primarily involving the medial malleolus. Electronically Signed by Sinan Wheatley MD 09/23/2018 02:00 A
--- NOTE | 2018-09-23 02:45 | REP ---
Clinical: Right ankle pain. Technique: AP and lateral views of the right tibia / fibula. Findings: Evidence of prior knee replacement with normal appearance. No acute fracture dislocation. AP and lateral views of the distal tibia / fibula which include the ankle suggest mild osteopenia and degenerative changes including subtle joint space narrowing at the ankle mortise as well as at the talonavicular joint with subtle subchondral sclerosis. Evidence for pes planus noted. Moderate calcaneal heal spur identified. Impression: The subtle degenerative changes to the ankle suggested along with pes planus. Electronically Signed by Sinan Wheatley MD 09/23/2018 02:36 A
== END ==
LOC: M LAB 14:47
PROVIDERS: ATTEND Student in an Organized Health Care Education/Training Program
DX: Z01.818 Encounter for other preprocedural examination (principal); M25.571 Pain in right ankle and joints of right foot; M19.071 Primary osteoarthritis, right ankle and foot; M85.871 Other specified disorders of bone density and structure, right ankle and foot; M77.31 Calcaneal spur, right foot; Z96.651 Presence of right artificial knee joint

== ENCOUNTER → 2018-11-01 | Outpatient (CLI) | payer OTHER ==
[2018-11-01 11:12] LABS: HEMATOCRIT 37.9 % (36.0-47.0); HEMOGLOBIN 12.1 g/dl (12.0-15.5); MEAN CORPUSCULAR HGB CONC 31.9 g/dl (32.0-36.5); MEAN CORPUSCULAR VOLUME 84.6 fl (80.0-96.0); PLATELET COUNT, AUTOMATED 133 10^3/uL (150-450); RED BLOOD COUNT 4.48 10^6/uL (4.00-5.40); WHITE BLOOD COUNT 3.9 10^3/uL (4.0-10.0)
[2018-11-01 11:35] LABS: BLOOD UREA NITROGEN 11 MG/DL (7-18); CALCIUM LEVEL 8.9 MG/DL (8.8-10.2); CARBON DIOXIDE LEVEL 28 MEQ/L (21-32); CHLORIDE LEVEL 108 MEQ/L (98-107); CREATININE FOR GFR 0.73 MG/DL (0.55-1.30); GLOMERULAR FILTRATION RATE > 60.0 (>45); GLUCOSE, FASTING 102 MG/DL (70-100); SODIUM LEVEL 144 MEQ/L (136-145)
== END ==
LOC: M LAB 10:06
PROVIDERS: ATTEND Student in an Organized Health Care Education/Training Program
DX: R42 Dizziness and giddiness (principal)

== ENCOUNTER → 2019-01-09 | Outpatient (REF) | payer OTHER ==
[~2019-01-09] MED LIST changes: +ACET-716 PO; -ACET30TAB PO; -ASPI1TAB PO; +ASPI81TA26 PO; -VITA100T20 PO; +VITA100T51 PO
[2019-01-09 11:21] LABS: HEMATOCRIT 39.2 % (36.0-47.0); HEMOGLOBIN 12.2 g/dl (12.0-15.5); MEAN CORPUSCULAR HEMOGLOBIN 26.1 pg (27.0-33.0); MEAN CORPUSCULAR HGB CONC 31.1 g/dl (32.0-36.5); MEAN CORPUSCULAR VOLUME 83.9 fl (80.0-96.0); PLATELET COUNT, AUTOMATED 170 10^3/uL (150-450); RED BLOOD COUNT 4.67 10^6/uL (4.00-5.40); WHITE BLOOD COUNT 4.2 10^3/uL (4.0-10.0)
[2019-01-09 11:29] LABS: ALBUMIN 3.4 GM/DL (3.2-5.2); ALT/SGPT 37 U/L (12-78); BILIRUBIN,TOTAL 0.4 MG/DL (0.2-1.0); BLOOD UREA NITROGEN 11 MG/DL (7-18); CALCIUM LEVEL 8.4 MG/DL (8.8-10.2); CARBON DIOXIDE LEVEL 29 MEQ/L (21-32); CHLORIDE LEVEL 110 MEQ/L (98-107); CHOLESTEROL LEVEL 171 MG/DL (<200); CHOLESTEROL RISK RATIO 2.478 (<5); CREATININE FOR GFR 0.86 MG/DL (0.55-1.30); GLOMERULAR FILTRATION RATE > 60.0 (>45); GLUCOSE, FASTING 98 MG/DL (70-100); HDL CHOLESTEROL 69 MG/DL (>40); LDL CHOLESTEROL 88 MG/DL (<100); NON-HDL-C 102 MG/DL; POTASSIUM SERUM 4.2 MEQ/L (3.5-5.1); SODIUM LEVEL 145 MEQ/L (136-145); TOTAL PROTEIN 6.6 GM/DL (6.4-8.2); TRIGLYCERIDES LEVEL 71 MG/DL (<150)
[2019-01-09 11:41] LABS: HEMOGLOBIN A1c 5.3 %
== END ==
LOC: M SFHCPLAZ 09:09
DX: Z00.00 Encounter for general adult medical examination without abnormal findings (principal)

== ENCOUNTER → 2019-01-22 | Outpatient (CLI) | payer OTHER ==
--- NOTE | 2019-01-27 09:46 | DEXA ---
AP SPINE L1 - L4 1.073 -1.0 0.2 LT FEMUR TOTAL 0.813 -1.5 -0.6 LT NECK 0.763 -2.0 -0.7 RT FEMUR TOTAL 0.810 -1.6 -0.6 RT NECK 0.782 -1.8 -0.6 TOTAL BODY TOTAL OTHER COMMENTS: There is low bone density of the spine and hips. FOLLOW-UP: Recommendation for the next bone density exam: 2 years. IZABELA
== END ==
LOC: M WHC 12:42
PROVIDERS: ATTEND Student in an Organized Health Care Education/Training Program
DX: M85.871 Other specified disorders of bone density and structure, right ankle and foot (principal)

== ENCOUNTER → 2019-04-22 | Outpatient (CLI) | payer BC, OTHER ==
[~2019-04-22] MED LIST changes: +CYAN500T8 PO; -VITA500T3 PO
--- NOTE | 2019-04-23 07:46 | REP ---
Examination Requested: Cookie Swallow Reason For Exam: Speech disturbances The procedure was performed by ZEKE Rosenberg, under the direct supervision of Dr. Matta. The procedure was performed with Kelley Aviles from speech pathology present. 5 ml aliquots of thin, nectar, pudding, mixed fruit, soft food, hard food and pill consistency barium was administered. No aspiration or penetration was visualized throughout the course of the exam. The detailed report of this examination will be provided by speech pathology. 2.5 minutes of fluoroscopy time was utilized for this procedure. Reviewed by ZEKE Doss 04/22/2019 04:59 P Electronically Signed by Eleazar Matta MD 04/23/2019 07:37 A
== END ==
LOC: M ST 14:51
PROVIDERS: ATTEND Physician Assistant Medical
DX: R47.89 Other speech disturbances (principal); R47.02 Dysphasia

== ENCOUNTER 2019-06-22 06:42 | Outpatient (RCR) | payer BC, OTHER ==
[~2019-06-22 06:42] MED LIST changes: -OMEP40CA2 PO; +OMEP40CA97 PO
== END 2019-07-04 ==
LOC: M ST 06:42
PROVIDERS: ATTEND Physician Assistant Medical
DX: R47.02 Dysphasia (principal)

== ENCOUNTER → 2019-08-20 | Outpatient (REF) | payer BC, OTHER ==
[~2019-08-20] MED LIST changes: +FLUO10CA15 PO; -FLUO10CA8 PO
[2019-08-20 17:44] LABS: INFLUENZA A AMPLIFICATION NEGATIVE (NEGATIVE); INFLUENZA B AMPLIFICATION NEGATIVE (NEGATIVE)
== END ==
LOC: M LAB REF 16:22
PROVIDERS: ATTEND Physician Assistant
DX: J11.1 Influenza due to unidentified influenza virus with other respiratory manifestations (principal)

== ENCOUNTER → 2019-11-24 | Outpatient (CLI) | payer BC ==
--- NOTE | 2019-11-25 04:05 | REPPI ---
Clinical: Left upper quadrant tenderness. Technique: Frontal upright view of the chest with supine and upright views of the abdomen and pelvis. Findings: Frontal view of the chest is unremarkable. Supine and upright views of the abdomen and pelvis demonstrate nonspecific bowel gas pattern. Evidence of prior cholecystectomy and gastric bypass surgery. No organomegaly. Skeletal structures demonstrate age-related degenerative changes. Impression: Nonspecific abdominal series. Electronically Signed by Sinan Wheatley MD 11/25/2019 03:57 A
== END ==
LOC: M PLAIMG 12:51
PROVIDERS: ATTEND Nurse Practitioner Family
DX: R10.812 Left upper quadrant abdominal tenderness (principal)

== ENCOUNTER → 2019-11-24 | Outpatient (REF) | payer BC ==
[2019-11-24 15:33] LABS: BASO # 0.1 10^3/uL (0.0-0.2); BASO % 0.8 % (0.0-1.0); EOS # 0.2 10^3/uL (0.0-0.5); EOS % 2.6 % (0.0-3.0); HEMOGLOBIN 12.4 g/dl (12.0-15.5); LYMPH # 1.2 10^3/uL (1.5-5.0); LYMPH % 15.8 % (24.0-44.0); MEAN CORPUSCULAR HEMOGLOBIN 26.7 pg (27.0-33.0); MONO # 0.5 10^3/uL (0.0-0.8); MONO % 6.9 % (0.0-5.0); NEUTROPHILS # 5.3 10^3/uL (1.5-8.5); NEUTROPHILS % 73.6 % (36.0-66.0); PLATELET COUNT, AUTOMATED 177 10^3/uL (150-450); RED BLOOD COUNT 4.65 10^6/uL (4.00-5.40); WHITE BLOOD COUNT 7.3 10^3/uL (4.0-10.0)
[2019-11-24 15:41] LABS: ALBUMIN 3.9 GM/DL (3.2-5.2); ALT/SGPT 41 U/L (12-78); AMYLASE 57 U/L (25-115); BILIRUBIN,TOTAL 0.4 MG/DL (0.2-1.0); BLOOD UREA NITROGEN 18 MG/DL (7-18); CALCIUM LEVEL 9.4 MG/DL (8.8-10.2); CARBON DIOXIDE LEVEL 29 MEQ/L (21-32); CHLORIDE LEVEL 107 MEQ/L (98-107); CREATININE FOR GFR 0.74 MG/DL (0.55-1.30); GLOMERULAR FILTRATION RATE > 60.0 (>45); GLUCOSE, FASTING 97 MG/DL (70-100); LIPASE 494 U/L (73-393); POTASSIUM SERUM 4.4 MEQ/L (3.5-5.1); SODIUM LEVEL 140 MEQ/L (136-145); TOTAL PROTEIN 7.1 GM/DL (6.4-8.2)
== END ==
LOC: M SFHCPLAZ 12:48
PROVIDERS: ATTEND Nurse Practitioner Family
DX: R42 Dizziness and giddiness (principal); R10.812 Left upper quadrant abdominal tenderness

== ENCOUNTER → 2020-01-27 | Outpatient (REF) | payer BC ==
[~2020-01-27] MED LIST changes: -ASPI81TA85 PO; +ASPI81TA86 PO; -FLUO10CA15 PO; +FLUO10CA16 PO
[2020-01-27 12:29] LABS: HEMOGLOBIN A1c 5.6 %
[2020-01-27 12:41] LABS: FREE T4 1.11 NG/DL (0.76-1.46); PERCENT SATURATION 12.5 % (13.2-45.0); THYROID STIMULATING HORMONE 2.06 uIU/ML (0.358-3.740)
== END ==
LOC: M SFHCPLAZ 10:19
PROVIDERS: ATTEND Family Medicine
DX: Z00.00 Encounter for general adult medical examination without abnormal findings (principal); Z98.84 Bariatric surgery status

== ENCOUNTER 2020-04-29 16:40 | Emergency (ER) | payer BC, MEDICAID ==
[~2020-04-29] VITALS: Ht 167.6 cm; Wt 103.6 kg
--- NOTE | 2020-04-29 17:51 | REPVR ---
PROCEDURE INFORMATION: Exam: XR Right Ribs with PA Chest, 3 Views Exam date and time: 04/29/2020 5:17 PM Age: 59 years old Clinical indication: Chest wall pain; Right; Additional info: Trauma TECHNIQUE: Imaging protocol: XR Right ribs 3 views with PA chest. COMPARISON: CR ABDOMEN FLAT/UPRIGHT PA CHEST 11/24/2019 1:07 PM FINDINGS: Lungs: Lungs are clear. Pleural space: Unremarkable. No pleural effusion. No pneumothorax. Heart/Mediastinum: Aorta is again tortuous and ectatic. No cardiomegaly. Bones/joints: Unremarkable. No fracture Organs: There are cholecystectomy clips in the right upper quadrant IMPRESSION: 1. No acute fracture. 2. No acute cardiopulmonary abnormality. Aorta is again tortuous and ectatic. Electronically signed by: Brynn Amos On 04/29/2020 17:51:23 PM
[2020-04-29] MEDS ORDERED: NS 1,000 ML IV ONE (18:15)
[2020-04-29 18:38] LABS: BASO # 0.1 10^3/uL (0.0-0.2); BASO % 0.9 % (0.0-1.0); EOS # 0.1 10^3/uL (0.0-0.5); EOS % 1.5 % (0.0-3.0); HEMATOCRIT 35.4 % (36.0-47.0); HEMOGLOBIN 11.3 g/dl (12.0-15.5); LYMPH # 1.2 10^3/uL (1.5-5.0); LYMPH % 15.6 % (24.0-44.0); MEAN CORPUSCULAR HEMOGLOBIN 26.7 pg (27.0-33.0); MEAN CORPUSCULAR HGB CONC 31.9 g/dl (32.0-36.5); MEAN CORPUSCULAR VOLUME 83.7 fl (80.0-96.0); MONO # 0.5 10^3/uL (0.0-0.8); MONO % 6.2 % (0.0-5.0); NEUTROPHILS # 5.6 10^3/uL (1.5-8.5); NEUTROPHILS % 75.7 % (36.0-66.0); PLATELET COUNT, AUTOMATED 183 10^3/uL (150-450); RED BLOOD COUNT 4.23 10^6/uL (4.00-5.40); WHITE BLOOD COUNT 7.5 10^3/uL (4.0-10.0)
[2020-04-29 18:49] LABS: INR 0.96
[2020-04-29 18:50] LABS: PARTIAL THROMBOPLASTIN TIME 35.5 SECONDS (24.2-38.5)
[2020-04-29] MEDS: GASTROGRAFIN SOLUTION 30ML PO SCH ×2 (19:01→19:34)
[2020-04-29 19:15] LABS: ALBUMIN 3.9 GM/DL (3.2-5.2); ALT/SGPT 29 U/L (12-78); BILIRUBIN,DIRECT < 0.1 MG/DL (0.0-0.2); BILIRUBIN,TOTAL 0.4 MG/DL (0.2-1.0); CK-MB VALUE MASS < 1.0 NG/ML (<3.6); CPK CREATINE PHOSPHOKINASE 78 U/L (26-192); LIPASE 76 U/L (73-393); MB/CK RELATIVE INDEX 1.28 (< OR =4); TROPONIN I < 0.02 NG/ML (< 0.10)
[2020-04-29] MEDS ORDERED: ISOVUE-370 76% 100ML VIAL As Ordered ONE (19:41)
[2020-04-29 20:49] VITALS: BP 131/79
--- NOTE | 2020-05-01 15:16 | ECGEPIP ---
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
== END 2020-04-29 21:53 | disposition home or self-care (01) ==
LOC: M ED 16:40
DX: S29.011A Strain of muscle and tendon of front wall of thorax, initial encounter (principal); S20.211A Contusion of right front wall of thorax, initial encounter; X58.XXXA Exposure to other specified factors, initial encounter; Y92.89 Other specified places as the place of occurrence of the external cause; I10 Essential (primary) hypertension; E78.5 Hyperlipidemia, unspecified; F33.9 Major depressive disorder, recurrent, unspecified; F41.9 Anxiety disorder, unspecified; D50.9 Iron deficiency anemia, unspecified; D68.2 Hereditary deficiency of other clotting factors; K21.9 Gastro-esophageal reflux disease without esophagitis; G47.30 Sleep apnea, unspecified; E66.9 Obesity, unspecified; Z79.82 Long term (current) use of aspirin; Z79.899 Other long term (current) drug therapy; Z87.891 Personal history of nicotine dependence
CPT/HCPCS: 71101; 74177; 80047; 80076; 82550; 82553; 83690; 85025; 85610; 85730; 93005; 96360; 99284; Q9963; Q9967

== ENCOUNTER → 2020-10-25 | Outpatient (CLI) | payer OTHER ==
[~2020-10-25] MED LIST changes: +CYAN500T14 PO; -CYAN500T8 PO
[2020-10-25 07:59] LABS: HEMATOCRIT 36.6 % (36.0-47.0); HEMOGLOBIN 11.5 g/dl (12.0-15.5); MEAN CORPUSCULAR HEMOGLOBIN 26.8 pg (27.0-33.0); MEAN CORPUSCULAR HGB CONC 31.4 g/dl (32.0-36.5); MEAN CORPUSCULAR VOLUME 85.3 fl (80.0-96.0); PLATELET COUNT, AUTOMATED 159 10^3/uL (150-450); RED BLOOD COUNT 4.29 10^6/uL (4.00-5.40); WHITE BLOOD COUNT 4.3 10^3/uL (4.0-10.0)
--- NOTE | 2020-10-25 08:06 | REP ---
INDICATION: LEFT KNEE OSTEOARTHRITIS- PREOP- LABS AND EKG FIRST. COMPARISON: 04/29/2020 right rib series. TECHNIQUE: Upright PA and lateral chest. FINDINGS: The lung shipman are clear. Cardiac size is normal. The niles, mediastinum and skeletal structures are unremarkable. IMPRESSION: Essentially negative PA and lateral chest There is no interval change. <Electronically signed by Eleazar Matta > 10/25/20 [id number]
[2020-10-25 08:10] LABS: INR 0.98; PROTHROMBIN TIME 13.2 SECONDS (12.5-14.3)
[2020-10-25 08:14] LABS: ALBUMIN 3.6 GM/DL (3.2-5.2); ALT/SGPT 29 U/L (12-78); BILIRUBIN,TOTAL 0.3 MG/DL (0.2-1.0); BLOOD UREA NITROGEN 11 MG/DL (7-18); CALCIUM LEVEL 8.8 MG/DL (8.8-10.2); CARBON DIOXIDE LEVEL 31 MEQ/L (21-32); CHLORIDE LEVEL 110 MEQ/L (98-107); CREATININE FOR GFR 0.77 MG/DL (0.55-1.30); GLOMERULAR FILTRATION RATE > 60.0 (>45); GLUCOSE, FASTING 103 MG/DL (70-100); POTASSIUM SERUM 3.9 MEQ/L (3.5-5.1); SODIUM LEVEL 143 MEQ/L (136-145); TOTAL PROTEIN 6.5 GM/DL (6.4-8.2)
[2020-10-25 08:27] LABS: ERYTHROCYTE SEDIMENTATION RATE 13 mm/hr (0-30)
--- NOTE | 2020-10-25 20:39 | ECGEPIP ---
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
== END ==
LOC: M LAB 07:17
PROVIDERS: ATTEND Orthopaedic Surgery
DX: M17.12 Unilateral primary osteoarthritis, left knee (principal)

== ENCOUNTER → 2020-11-21 | Outpatient (CLI) | payer OTHER ==
[~2020-11-21] MED LIST changes: +ISOVUE-300 61% 50ML VIAL As Ordered ONE; +LIDOCAINE 1% MDV 20ML VIAL As Ordered ONE; +methylPREDNISolone SUSP 40MG/ML 1ML VIAL (DEPO MEDROL) As Ordered ONE
--- NOTE | 2020-11-21 14:40 | REP ---
INDICATION: RIGHT FOOT/ANKLE OSTEOARTHRITIS. COMPARISON: None. TECHNIQUE: Intraoperative fluoroscopic imaging using portable C-arm technique. FINDINGS: Images demonstrate needle placement and contrast administration at right midfoot joints. Total fluoroscopic time 0.2 seconds. IMPRESSION: Images consistent with fluoroscopic guided needle placement at midfoot joint. <Electronically signed by Sinan Wheatley > 11/21/20 [id number]
--- NOTE | 2020-12-28 12:41 | PAIN ---
DATE OF OPERATION: 11/21/2020 PROCEDURE: Right foot/ankle steroid injection for osteoarthritis. PROCEDURE PERFORMED BY: ZEKE Rosenberg, under the direct supervision of Dr. Gonzalez. DESCRIPTION OF PROCEDURE: The benefits and risks of the procedure were explained to the patient, and an informed consent was obtained both verbally and written. Directly prior to the start of the procedure, a formal time out was completed in the procedure room. Both of the right talonavicular and navicular/medial cuneiform joint space were localized using fluoroscopic guidance. The skin was prepped and draped in a sterile fashion. Approximately 1 mL of 1% lidocaine, 10 mg/ml, was used as a local anesthetic for joint spaces. Using fluoroscopic guidance, a 25 gauge needle was inserted and advanced into the right talonavicular joint space. Approximately 0.5 mL of Isovue 300 was injected to verify placement. 1.5 mL of a 3 mL solution containing 2 mL of 1% lidocaine, 10 mg/ml, and 1 mL Depo-Medrol 40 mg/ml was injected into the joint space. Using fluoroscopic guidance, a 25 gauge needle was then inserted and advanced into the right navicular/medial cuneiform joint space. Approximately 0.5 mL of Isovue 300 was injected to verify placement. The remaining 1.5 mL of the 3 mL solution was injected. The needle was removed and hemostasis was achieved. The patient tolerated the procedure well, and there were no immediate complications. IMPRESSION: 1. Fluoroscopic guided right talonavicular and navicular/medial cuneiform joint injections. 2. 0.2 minutes of fluoroscopy time was utilized for this procedure. Some fluoroscopic images were performed with last image hold technology. These images required no additional radiation.
== END ==
LOC: M RADPRO 11:07
PROVIDERS: ATTEND Physician Assistant
DX: M19.071 Primary osteoarthritis, right ankle and foot (principal)
CPT/HCPCS: 20605; 77002; J1030; Q9967

== ENCOUNTER → 2020-11-25 | Outpatient (CLI) | payer OTHER ==
--- NOTE | 2020-11-25 14:00 | REP ---
INDICATION: LEFT FOOT/ANKLE OSTEOARTHRITIS. COMPARISON: None TECHNIQUE: The procedure was performed by [facility], under the direct supervision of Dr. Gonzalez. The benefits and risks of the procedure were explained to the patient, and an informed consent was obtained. Directly prior to the start of the procedure, a formal time-out was completed in the procedure room. The both of the left talonavicular and navicular/medial cuneiform joint spaces were localized using fluoroscopic guidance. The skin was prepped and draped in a sterile fashion. Approximately 1 mL of 1% Lidocaine 10 mg/ml was used as a local anesthetic for both joint spaces. Using fluoroscopic guidance, a 25 gauge needle was inserted and advanced into the left talonavicular joint space. Approximately 0.5 mL of Isovue 300 was injected to verify placement. 1.5 mL of a this 3 mL solution containing 2 mL 1% lidocaine 10 mg/ml and 1 mL Depo-Medrol 40 milligrams/milliliter was injected into the joint space. Using fluoroscopic guidance a 25 gauge needle was then inserted and advanced into the left navicular/medial cuneiform joint space. Approximately 0.5 mL of Isovue-300 was injected to verify placement. The remaining 1.5 cc of the 3 cc solution was injected. The needle was removed and hemostasis was achieved. FINDINGS: The patient tolerated the procedure well and there were no immediate complications. IMPRESSION: 1. Fluoroscopically guided left talonavicular and navicular/medial cuneiform joint injections. 0.3 minutes of fluoroscopy time was utilized for this procedure. Some fluoroscopic images are performed with last image hold technology. These images require no additional radiation. <Electronically signed by Aracely Martinez > 11/25/20 [id number] <Electronically signed by Amilcar Gonzalez > 11/25/20 [id number]
== END ==
LOC: M RADPRO 11:10
PROVIDERS: ATTEND Physician Assistant
DX: M19.072 Primary osteoarthritis, left ankle and foot (principal)
CPT/HCPCS: 20605; 77002; J1030; Q9967

== ENCOUNTER → 2021-02-09 | Outpatient (CLI) | payer OTHER ==
[~2021-02-09] MED LIST changes: -ISOVUE-300 61% 50ML VIAL As Ordered ONE; -LIDOCAINE 1% MDV 20ML VIAL As Ordered ONE; +OMEP40CA4 PO; -OMEP40CA97 PO; -methylPREDNISolone SUSP 40MG/ML 1ML VIAL (DEPO MEDROL) As Ordered ONE
--- NOTE | 2021-02-09 09:28 | DEXAMM ---
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 COMPARISON: 01/22/2019. TECHNIQUE: Bone density was measured using dual-energy x-ray absorptiometry (DEXA). FINDINGS: AP SPINE L1-L4 BMD 1.090 g/cm2 Young Adult T-Score -0.8 Age Matched Z-Score 0.5. LT FEMUR, TOTAL BMD 0.825 g/cm2 Young Adult T-Score -1.5 Age Matched Z-Score -0.4. LT NECK BMD 0.818 g/cm2 Young Adult T-Score -1.6 Age Matched Z-Score -0.3. RT FEMUR, TOTAL BMD 0.843 g/cm2 Young Adult T-Score -1.3 Age Matched Z-Score -0.3. RT NECK BMD 0.849 g/cm2 Young Adult T-Score -1.4 Age Matched Z-Score 0.0. IMPRESSION: There is normal bone density of the spine. There is low bone density of the left hip. There is low bone density of the right hip. The density of the spine has increased 1.6% since the initial exam on 01/22/2019. The density of the left hip has increased 1.5% since initial exam on 01/22/2019. The density of the right hip has increased 4.1% since the initial exam on 01/22/2019. FOLLOW-UP: Recommendation for the next bone density exam: 2 years. <Electronically signed by Eleazar Byrnes > 02/09/21 0923
== END ==
LOC: M WHC 07:58
PROVIDERS: ATTEND Internal Medicine
DX: M85.88 Other specified disorders of bone density and structure, other site (principal)

== ENCOUNTER → 2021-03-01 | Outpatient (REF) | payer OTHER ==
[2021-03-01 18:02] LABS: APPEARANCE, URINE CLEAR (CLEAR); BACTERIA, URINE AUTO 1+ (NEGATIVE); BILIRUBIN, URINE AUTO NEGATIVE (NEGATIVE); BLOOD, URINE BLOOD 3+ (NEGATIVE); COLOR, URINE STRAW (YELLOW); GLUCOSE, URINE (UA) AUTO NEGATIVE (NEGATIVE); KETONE, URINE AUTO NEGATIVE (NEGATIVE); LEUKOCYTE ESTERASE, URINE AUTO 1+ (NEGATIVE); MUCUS, URINE SMALL (NEGATIVE); NITRITE, URINE AUTO NEGATIVE (NEGATIVE); PROTEIN, URINE AUTO 2+ mg/dL (NEGATIVE); RBC, URINE AUTO 6 /HPF (0-3); SPECIFIC GRAVITY URINE AUTO 1.008 (1.002-1.035); SQUAMOUS EPITHELIAL CELL UR AU 1 /HPF (0-6); UROBILINOGEN, URINE AUTO 0.2 mg/dL (0.0-2.0); WBC, URINE AUTO 24 /HPF (0-3)
== END ==
LOC: M LAB REF 17:43
PROVIDERS: ATTEND Physician Assistant
DX: N39.0 Urinary tract infection, site not specified (principal)

== ENCOUNTER → 2021-04-22 | Outpatient (CLI) | payer OTHER ==
[~2021-04-22] MED LIST changes: -DOXY100C PO; +DOXY100C3 PO
[2021-04-25 12:08] LABS: ANTINUCLEAR ANTIBODIES DIRECT Negative (Negative)
== END ==
LOC: M LAB 11:24
PROVIDERS: ATTEND Physician Assistant Medical
DX: M25.549 Pain in joints of unspecified hand (principal)

== ENCOUNTER → 2021-06-12 | Outpatient (REF) | payer OTHER | LOC: M SFHCPLAZ 09:28 | PROVIDERS: ATTEND Student in an Organized Health Care Education/Training Program | DX: R35.0 Frequency of micturition (principal) ==

== ENCOUNTER → 2021-08-10 | Outpatient (REF) | payer OTHER ==
[~2021-08-10] MED LIST changes: -FLUO10CA16 PO; +FLUO10CA18 PO
== END ==
LOC: M SFHCWAGY 17:10
PROVIDERS: ATTEND Nurse Practitioner Women's Health
DX: Z12.4 Encounter for screening for malignant neoplasm of cervix (principal)

== ENCOUNTER → 2021-08-16 | Outpatient (CLI) | payer OTHER ==
[~2021-08-16] MED LIST changes: +ISOVUE-300 61% 50ML VIAL As Ordered ONE; +LIDOCAINE 1% MDV 20ML VIAL As Ordered ONE; +methylPREDNISolone SUSP 40MG/ML 1ML VIAL (DEPO MEDROL) As Ordered ONE
== END ==
LOC: M RADPRO 13:26
PROVIDERS: ATTEND Physician Assistant
DX: M19.071 Primary osteoarthritis, right ankle and foot (principal)
CPT/HCPCS: 20605; 77002; J1030; Q9967

== ENCOUNTER → 2021-08-23 | Outpatient (CLI) | payer OTHER | LOC: M RADPRO 10:38 | PROVIDERS: ATTEND Physician Assistant | DX: M19.072 Primary osteoarthritis, left ankle and foot (principal) | CPT/HCPCS: 20605; 77002; J1030; Q9967 ==

== ENCOUNTER → 2022-01-19 | Outpatient (CLI) | payer OTHER | LOC: M RADPRO 13:53 | PROVIDERS: ATTEND Physician Assistant | DX: M19.071 Primary osteoarthritis, right ankle and foot (principal) | CPT/HCPCS: 20605; 76000; J1030; Q9967 ==

== ENCOUNTER → 2022-01-26 | Outpatient (CLI) | payer OTHER | LOC: M RADPRO 11:12 | PROVIDERS: ATTEND Physician Assistant | DX: M19.072 Primary osteoarthritis, left ankle and foot (principal); M19.071 Primary osteoarthritis, right ankle and foot | CPT/HCPCS: 20605; 76000; J1030; Q9967 ==

== ENCOUNTER → 2022-02-13 | Outpatient (CLI) | payer OTHER ==
[~2022-02-13] MED LIST changes: -ISOVUE-300 61% 50ML VIAL As Ordered ONE; -LIDOCAINE 1% MDV 20ML VIAL As Ordered ONE; -methylPREDNISolone SUSP 40MG/ML 1ML VIAL (DEPO MEDROL) As Ordered ONE
[2022-02-13 12:07] LABS: HEMATOCRIT 37.4 % (36.0-47.0); HEMOGLOBIN 11.9 g/dl (12.0-15.5); MEAN CORPUSCULAR HEMOGLOBIN 26.1 pg (27.0-33.0); MEAN CORPUSCULAR HGB CONC 31.8 g/dl (32.0-36.5); PLATELET COUNT, AUTOMATED 163 10^3/uL (150-450); RED BLOOD COUNT 4.56 10^6/uL (4.00-5.40); WHITE BLOOD COUNT 3.6 10^3/uL (4.0-10.0)
[2022-02-13 13:58] LABS: ALBUMIN 3.5 GM/DL (3.2-5.2); ALT/SGPT 31 U/L (12-78); BILIRUBIN,TOTAL 0.5 MG/DL (0.2-1.0); BLOOD UREA NITROGEN 15 MG/DL (7-18); CALCIUM LEVEL 8.8 MG/DL (8.8-10.2); CARBON DIOXIDE LEVEL 26 MEQ/L (21-32); CHLORIDE LEVEL 111 MEQ/L (98-107); CHOLESTEROL LEVEL 177 MG/DL (<200); CHOLESTEROL RISK RATIO 2.269 (<5); CREATININE FOR GFR 0.85 MG/DL (0.55-1.30); FERRITIN 14 NG/ML (8-252); GLOMERULAR FILTRATION RATE > 60.0 (>45); GLUCOSE, FASTING 100 MG/DL (70-100); HDL CHOLESTEROL 78 MG/DL (>40); IRON (FE) 71 UG/DL (50-170); LDL CHOLESTEROL 82 MG/DL (<100); NON-HDL-C 99 MG/DL; PERCENT SATURATION 18.5 % (13.2-45.0); POTASSIUM SERUM 4.1 MEQ/L (3.5-5.1); SODIUM LEVEL 139 MEQ/L (136-145); TOTAL IRON BINDING CAPACITY 384 UG/DL (250-450); TOTAL PROTEIN 6.3 GM/DL (6.4-8.2); TRIGLYCERIDES LEVEL 84 MG/DL (<150)
[2022-02-13 14:35] LABS: FOLATE 22.9 NG/ML; VITAMIN B12 LEVEL 568 PG/ML
[2022-02-13 23:29] LABS: HEMOGLOBIN A1c 5.4 %
== END ==
LOC: M LAB 11:24
PROVIDERS: ATTEND Student in an Organized Health Care Education/Training Program
DX: Z00.00 Encounter for general adult medical examination without abnormal findings (principal)

== ENCOUNTER → 2022-02-16 | Outpatient (CLI) | payer OTHER ==
[2022-02-16 10:29] LABS: BASO # 0.1 10^3/uL (0.0-0.2); BASO % 1.7 % (0.0-1.0); EOS # 0.2 10^3/uL (0.0-0.5); EOS % 5.9 % (0.0-3.0); HEMATOCRIT 38.8 % (36.0-47.0); LYMPH # 1.1 10^3/uL (1.5-5.0); LYMPH % 30.3 % (24.0-44.0); MEAN CORPUSCULAR HEMOGLOBIN 25.7 pg (27.0-33.0); MEAN CORPUSCULAR HGB CONC 30.9 g/dl (32.0-36.5); MEAN CORPUSCULAR VOLUME 83.1 fl (80.0-96.0); MONO # 0.4 10^3/uL (0.0-0.8); MONO % 9.9 % (2.0-8.0); NEUTROPHILS # 1.8 10^3/uL (1.5-8.5); NEUTROPHILS % 51.9 % (36.0-66.0); PLATELET COUNT, AUTOMATED 176 10^3/uL (150-450); RED BLOOD COUNT 4.67 10^6/uL (4.00-5.40); WHITE BLOOD COUNT 3.5 10^3/uL (4.0-10.0)
== END ==
LOC: M LAB 09:48
PROVIDERS: ATTEND Student in an Organized Health Care Education/Training Program
DX: D72.819 Decreased white blood cell count, unspecified (principal); Z98.84 Bariatric surgery status

== ENCOUNTER → 2022-02-27 | Outpatient (CLI) | payer OTHER | LOC: M RAD 11:12 | PROVIDERS: ATTEND Student in an Organized Health Care Education/Training Program | DX: R22.0 Localized swelling, mass and lump, head (principal) ==

== ENCOUNTER 2022-08-06 18:57 | Emergency (ER) | payer OTHER ==
[~2022-08-06] VITALS: Ht 170.2 cm; Wt 115.4 kg
[~2022-08-06 18:57] MED LIST changes: -POTA10CA32 PO; +POTA10CA33 PO
[2022-08-06 19:46] VITALS: BP 136/88
[2022-08-06 19:58] LABS: BASO # 0.1 10^3/uL (0.0-0.2); BASO % 0.9 % (0.0-1.0); EOS # 0.3 10^3/uL (0.0-0.5); EOS % 4.4 % (0.0-3.0); HEMATOCRIT 33.3 % (36.0-47.0); HEMOGLOBIN 10.2 g/dl (12.0-15.5); LYMPH # 1.5 10^3/uL (1.5-5.0); LYMPH % 26.8 % (24.0-44.0); MEAN CORPUSCULAR HEMOGLOBIN 24.6 pg (27.0-33.0); MEAN CORPUSCULAR HGB CONC 30.6 g/dl (32.0-36.5); MEAN CORPUSCULAR VOLUME 80.4 fl (80.0-96.0); MONO # 0.6 10^3/uL (0.0-0.8); MONO % 10.1 % (2.0-8.0); NEUTROPHILS # 3.3 10^3/uL (1.5-8.5); NEUTROPHILS % 57.4 % (36.0-66.0); PLATELET COUNT, AUTOMATED 210 10^3/uL (150-450); RED BLOOD COUNT 4.14 10^6/uL (4.00-5.40); WHITE BLOOD COUNT 5.7 10^3/uL (4.0-10.0)
[2022-08-06 20:09] LABS: INR 0.92; PROTHROMBIN TIME 12.6 SECONDS (12.5-14.5)
[2022-08-06 20:10] LABS: PARTIAL THROMBOPLASTIN TIME 33.9 SECONDS (24.8-34.2)
[2022-08-06 20:20] LABS: CK-MB VALUE MASS < 1.0 NG/ML (<3.6)
[2022-08-06 20:21] LABS: BLOOD UREA NITROGEN 17 MG/DL (9-23); CALCIUM LEVEL 8.5 MG/DL (8.3-10.6); CARBON DIOXIDE LEVEL 20 MMOL/L (20-31); CHLORIDE LEVEL 108 MMOL/L (98-107); CREATININE FOR GFR 0.75 MG/DL (0.55-1.30); GLOMERULAR FILTRATION RATE > 60.0 (>45); GLUCOSE, FASTING 115 MG/DL (74-106); POTASSIUM SERUM 4.7 MMOL/L (3.5-5.1); SODIUM LEVEL 142 MMOL/L (136-145)
[2022-08-06 20:24] LABS: CPK CREATINE PHOSPHOKINASE 107 U/L (34-145); MB/CK RELATIVE INDEX 0.93 (< OR =4)
[2022-08-06 21:15] VITALS: BP 152/81
== END 2022-08-06 21:39 | disposition home or self-care (01) ==
LOC: M ED 19:47
DX: Z86.73 Personal history of transient ischemic attack (TIA), and cerebral infarction without residual deficits (principal); R47.9 Unspecified speech disturbances; I10 Essential (primary) hypertension; E78.5 Hyperlipidemia, unspecified; K21.9 Gastro-esophageal reflux disease without esophagitis; F32.A Depression, unspecified; Z98.84 Bariatric surgery status; Z79.82 Long term (current) use of aspirin; Z79.899 Other long term (current) drug therapy

== ENCOUNTER → 2022-08-17 | Outpatient (CLI) | payer OTHER ==
[~2022-08-17] MED LIST changes: +ISOVUE-300 61% 100ML VIAL ONE; +LIDOCAINE 1% MDV 20ML VIAL ONE; +methylPREDNISolone SUSP 40MG/ML 1ML VIAL (DEPO MEDROL) ONE
== END ==
LOC: M PLAIMG 13:17
PROVIDERS: ATTEND Physician Assistant
DX: M19.071 Primary osteoarthritis, right ankle and foot (principal); M19.072 Primary osteoarthritis, left ankle and foot

== ENCOUNTER → 2023-03-04 | Outpatient (CLI) | payer OTHER ==
[~2023-03-04] MED LIST changes: -ISOVUE-300 61% 100ML VIAL ONE; -LIDOCAINE 1% MDV 20ML VIAL ONE; -POTA10CA33 PO; +POTA10CA60 PO; -methylPREDNISolone SUSP 40MG/ML 1ML VIAL (DEPO MEDROL) ONE
[2023-03-04 17:56] LABS: BLOOD UREA NITROGEN 19 MG/DL (9-23); CALCIUM LEVEL 8.8 MG/DL (8.3-10.6); CARBON DIOXIDE LEVEL 27 MMOL/L (20-31); CHLORIDE LEVEL 106 MMOL/L (98-107); CREATININE FOR GFR 0.78 MG/DL (0.55-1.30); GLOMERULAR FILTRATION RATE > 60.0 (>45); GLUCOSE, FASTING 84 MG/DL (74-106); POTASSIUM SERUM 4.9 MMOL/L (3.5-5.1); SODIUM LEVEL 141 MMOL/L (136-145)
[2023-03-04 17:57] LABS: THYROID STIMULATING HORMONE 2.724 uIU/ML (0.55-4.78)
== END ==
LOC: M PLALAB 15:30
PROVIDERS: ATTEND Student in an Organized Health Care Education/Training Program
DX: Z98.84 Bariatric surgery status (principal); D50.8 Other iron deficiency anemias; I10 Essential (primary) hypertension

== ENCOUNTER → 2023-03-11 | Outpatient (CLI) | payer OTHER ==
[~2023-03-11] MED LIST changes: +ISOVUE-300 61% 100ML VIAL As Ordered ONE; +LIDOCAINE 1% MDV 20ML VIAL As Ordered ONE; +methylPREDNISolone SUSP 40MG/ML 1ML VIAL (DEPO MEDROL) As Ordered ONE
== END ==
LOC: M RAD 10:37
PROVIDERS: ATTEND Physician Assistant
DX: M19.071 Primary osteoarthritis, right ankle and foot (principal); M19.072 Primary osteoarthritis, left ankle and foot
CPT/HCPCS: 20605; 77002; J1030; Q9967

== ENCOUNTER → 2023-03-25 | Outpatient (CLI) | payer OTHER ==
[~2023-03-25] MED LIST changes: -ISOVUE-300 61% 100ML VIAL As Ordered ONE; -LIDOCAINE 1% MDV 20ML VIAL As Ordered ONE; -methylPREDNISolone SUSP 40MG/ML 1ML VIAL (DEPO MEDROL) As Ordered ONE
== END ==
LOC: M RAD 11:40
PROVIDERS: ATTEND Student in an Organized Health Care Education/Training Program
DX: Z96.652 Presence of left artificial knee joint (principal)

== ENCOUNTER → 2023-07-13 | Outpatient (REF) | payer OTHER ==
[~2023-07-13] MED LIST changes: -MISO200T56 PO; +MISO200T83 PO
== END ==
LOC: M LAB REF 17:15
PROVIDERS: ATTEND Physician Assistant Medical
DX: B34.9 Viral infection, unspecified (principal)

== ENCOUNTER → 2023-10-09 | Outpatient (CLI) | payer OTHER ==
[~2023-10-09] MED LIST changes: +CVS-161 PO; +ECOT81TA5 PO; +ERGO500029 PO; +ISOVUE-300 61% 100ML VIAL As Ordered ONE; +LIDOCAINE 1% MDV 20ML VIAL As Ordered ONE; +LISI20TA33 PO; +THERTAB52 PO; +VITA400T26 PO; +methylPREDNISolone SUSP 40MG/ML 1ML VIAL (DEPO MEDROL) As Ordered ONE
== END ==
LOC: M RAD 14:15
PROVIDERS: ATTEND Physician Assistant
DX: M19.071 Primary osteoarthritis, right ankle and foot (principal); M19.072 Primary osteoarthritis, left ankle and foot
CPT/HCPCS: 20605; 77002; J1030; Q9967

== ENCOUNTER → 2024-02-05 | Outpatient (CLI) | payer OTHER ==
[~2024-02-05] MED LIST changes: +FLUO-290 PO; -FLUO10CA18 PO; -ISOVUE-300 61% 100ML VIAL As Ordered ONE; -LIDOCAINE 1% MDV 20ML VIAL As Ordered ONE; -POTA10CA60 PO; +POTA10CA70 PO; -methylPREDNISolone SUSP 40MG/ML 1ML VIAL (DEPO MEDROL) As Ordered ONE
[2024-02-05 14:11] LABS: HEMATOCRIT 40.6 % (36.0-47.0); HEMOGLOBIN 12.7 g/dl (12.0-15.5); MEAN CORPUSCULAR HEMOGLOBIN 25.9 pg (27.0-33.0); MEAN CORPUSCULAR HGB CONC 31.3 g/dl (32.0-36.5); MEAN CORPUSCULAR VOLUME 82.7 fl (80.0-96.0); PLATELET COUNT, AUTOMATED 199 10^3/uL (150-450); RED BLOOD COUNT 4.91 10^6/uL (4.00-5.40); WHITE BLOOD COUNT 5.4 10^3/uL (4.0-10.0)
[2024-02-05 14:39] LABS: TOTAL IRON BINDING CAPACITY 393 UG/DL (250-425)
[2024-02-05 14:40] LABS: ALBUMIN 3.9 G/DL (3.2-5.2); ALKALINE PHOSPHATASE 108 U/L (46-116); ALT/SGPT 31 U/L (7.0-40); AST/SGOT 19 U/L (<34); BILIRUBIN,DIRECT 0.1 MG/DL (<0.4); BILIRUBIN,TOTAL 0.5 MG/DL (0.3-1.2); BLOOD UREA NITROGEN 18 MG/DL (9-23); CALCIUM LEVEL 9.5 MG/DL (8.3-10.6); CARBON DIOXIDE LEVEL 28 MMOL/L (20-31); CHLORIDE LEVEL 107 MMOL/L (98-107); CHOLESTEROL LEVEL 196 MG/DL (<200); CHOLESTEROL RISK RATIO 3.02 (<5); CREATININE FOR GFR 0.93 MG/DL (0.55-1.30); GLOMERULAR FILTRATION RATE > 60.0 (>45); GLUCOSE, FASTING 97 MG/DL (74-106); HDL CHOLESTEROL 64.8 MG/DL (>40); IRON (FE) 101 UG/DL (50-170); NON-HDL-C 131.2 MG/DL; PERCENT SATURATION 25.7 % (13.2-45.0); POTASSIUM SERUM 4.9 MMOL/L (3.5-5.1); SODIUM LEVEL 138 MMOL/L (136-145); TOTAL PROTEIN 6.4 G/DL (5.7-8.2); TRIGLYCERIDES LEVEL 96 MG/DL (<150)
[2024-02-05 14:41] LABS: FERRITIN 13.1 NG/ML (7.3-270.7); FOLATE > 24.0 NG/ML (>5.4)
[2024-02-05 14:42] LABS: VITAMIN B12 LEVEL 924 PG/ML (211-911)
[2024-02-05 14:47] LABS: HEMOGLOBIN A1c 5.3 % (4.0-6.0)
== END ==
LOC: M PLALAB 11:01
PROVIDERS: ATTEND Student in an Organized Health Care Education/Training Program
DX: Z00.00 Encounter for general adult medical examination without abnormal findings (principal)

== ENCOUNTER 2024-02-26 07:05 | Day surgery (SDC) | payer OTHER ==
[~2024-02-26] VITALS: Ht 170.2 cm; Wt 104.7 kg
[~2024-02-26 07:05] MED LIST changes: +PHENYLEPHRINE 10% OPHTH SOL 5ML OS PRN
[2024-02-26] MEDS ORDERED: MIDAZOLAM INJ 2MG/2ML VIAL As Ordered ONE (07:11)
[2024-02-26] MEDS ORDERED: fentaNYL 100 MCG/2 ML INJECTION As Ordered ONE (07:12)
[2024-02-26] MEDS: OFLOXACIN 0.3 % (OCUFLOX) OPTH SOL 5ML OS ONE (08:00)
[2024-02-26] MEDS: LIDOCAINE 3.5 % 1ML OPHTH TOPICAL GEL OU ONE (08:00)
[2024-02-26] MEDS: TROPICAMIDE 1% OPHTH SOLN 15ML OS SCH (08:19)
[2024-02-26] MEDS: ATROPINE SULFATE 1% OPHTH SOLN 2ML BTL OS SCH (08:19)
[2024-02-26] MEDS: PHENYLEPHRINE 2.5% OPHTH SOL 2ML OS SCH (08:19)
[2024-02-26] MEDS: POVIDONE-IODINE 5% OPHTH PREP SOL 30ML As Ordered ONE (09:28)
[2024-02-26] MEDS: LIDOCAINE 1% SDV 5ML VIAL As Ordered ONE (09:35)
[2024-02-26] MEDS: BSS IRRIG/VANCO(10MG)/TOBRA(5MG)/EPINEPH(1:1000-0.5CC)500ML BAG-ORONLY As Ordered ONE (09:35)
[2024-02-26] MEDS: CEFUROXIME 1MG/0.1ML INTRACAMERAL INJ As Ordered ONE (09:35)
[2024-02-26 09:44] VITALS: BP 143/77; TEMP 96.7; O2SAT 95
== END 2024-02-26 10:09 | disposition home or self-care (01) ==
LOC: M SDC 07:05
PROVIDERS: ATTEND Ophthalmology
DX: H25.12 Age-related nuclear cataract, left eye (principal); I10 Essential (primary) hypertension; D68.51 Activated protein C resistance; I69.354 Hemiplegia and hemiparesis following cerebral infarction affecting left non-dominant side; K76.0 Fatty (change of) liver, not elsewhere classified; G47.30 Sleep apnea, unspecified; Z79.899 Other long term (current) drug therapy; Z79.82 Long term (current) use of aspirin; Z87.19 Personal history of other diseases of the digestive system; Z90.89 Acquired absence of other organs; Z98.84 Bariatric surgery status; Z87.891 Personal history of nicotine dependence
CPT/HCPCS: 66984; J0697; J2250; J3010; V2632

== ENCOUNTER 2024-03-04 10:54 | Day surgery (SDC) | payer OTHER ==
[~2024-03-04] VITALS: Ht 175.3 cm; Wt 104.4 kg
[~2024-03-04 10:54] MED LIST changes: +PHENYLEPHRINE 10% OPHTH SOL 5ML OD PRN; -PHENYLEPHRINE 10% OPHTH SOL 5ML OS PRN
[2024-03-04] MEDS: PHENYLEPHRINE 2.5% OPHTH SOL 2ML OD SCH (12:02)
[2024-03-04] MEDS: LIDOCAINE 3.5 % 1ML OPHTH TOPICAL GEL OU ONE (12:02)
[2024-03-04] MEDS: ATROPINE SULFATE 1% OPHTH SOLN 2ML BTL OD SCH (12:02)
[2024-03-04] MEDS: OFLOXACIN 0.3 % (OCUFLOX) OPTH SOL 5ML OD ONE (12:02)
[2024-03-04] MEDS: TROPICAMIDE 1% OPHTH SOLN 15ML OD SCH (12:02)
[2024-03-04] MEDS: LIDOCAINE 1% SDV 5ML VIAL As Ordered ONE (13:06)
[2024-03-04] MEDS: CEFUROXIME 1MG/0.1ML INTRACAMERAL INJ As Ordered ONE (13:06)
[2024-03-04] MEDS: BSS IRRIG/VANCO(10MG)/TOBRA(5MG)/EPINEPH(1:1000-0.5CC)500ML BAG-ORONLY As Ordered ONE (13:06)
[2024-03-04] MEDS ORDERED: MIDAZOLAM INJ 2MG/2ML VIAL As Ordered ONE (13:09)
[2024-03-04] MEDS ORDERED: fentaNYL 100 MCG/2 ML INJECTION As Ordered ONE (13:09)
[2024-03-04 13:15] VITALS: BP 130/77; TEMP 97.7; O2SAT 95
== END 2024-03-04 13:45 | disposition home or self-care (01) ==
LOC: M SDC 10:54
PROVIDERS: ATTEND Ophthalmology
DX: H25.11 Age-related nuclear cataract, right eye (principal); I10 Essential (primary) hypertension; K76.0 Fatty (change of) liver, not elsewhere classified; G47.30 Sleep apnea, unspecified; D68.51 Activated protein C resistance; K21.9 Gastro-esophageal reflux disease without esophagitis; Z98.84 Bariatric surgery status; Z79.899 Other long term (current) drug therapy; Z79.82 Long term (current) use of aspirin; I69.354 Hemiplegia and hemiparesis following cerebral infarction affecting left non-dominant side; I69.391 Dysphagia following cerebral infarction; Z90.89 Acquired absence of other organs; Z87.891 Personal history of nicotine dependence
CPT/HCPCS: 66984; J0697; J2250; J3010; V2632

== ENCOUNTER → 2024-07-01 | Outpatient (REF) | payer OTHER, MEDICARE ==
[~2024-07-01] MED LIST changes: -PHENYLEPHRINE 10% OPHTH SOL 5ML OD PRN
[2024-07-01 15:15] LABS: APPEARANCE, URINE HAZY (CLEAR); BACTERIA, URINE AUTO 1+ (NEGATIVE); BILIRUBIN, URINE AUTO NEGATIVE (NEGATIVE); BLOOD, URINE BLOOD NEGATIVE (NEGATIVE); COLOR, URINE YELLOW (YELLOW); GLUCOSE, URINE (UA) AUTO NEGATIVE (NEGATIVE); KETONE, URINE AUTO NEGATIVE (NEGATIVE); LEUKOCYTE ESTERASE, URINE AUTO 2+ (NEGATIVE); MUCUS, URINE SMALL (NEGATIVE); NITRITE, URINE AUTO POSITIVE (NEGATIVE); PROTEIN, URINE AUTO NEGATIVE (NEGATIVE); RBC, URINE AUTO 9 /HPF (0-3); SPECIFIC GRAVITY URINE AUTO 1.013 (1.002-1.035); SQUAMOUS EPITHELIAL CELL UR AU 6 /HPF (0-6); UROBILINOGEN, URINE AUTO 0.2 mg/dL (0.0-2.0); WBC, URINE AUTO 51 /HPF (0-3)
== END ==
LOC: M SFHCPLAZ 14:47
PROVIDERS: ATTEND Student in an Organized Health Care Education/Training Program
DX: R82.90 Unspecified abnormal findings in urine (principal)

== ENCOUNTER → 2024-08-11 | Outpatient (CLI) | payer MEDICARE, OTHER ==
[~2024-08-11] MED LIST changes: +ISOVUE-300 61% 100ML VIAL As Ordered ONE; +LIDOCAINE 1% MDV 20ML VIAL As Ordered ONE; +methylPREDNISolone SUSP 40MG/ML 1ML VIAL (DEPO MEDROL) As Ordered ONE
== END ==
LOC: M RAD 15:23
PROVIDERS: ATTEND Physician Assistant
DX: M19.072 Primary osteoarthritis, left ankle and foot (principal); M19.071 Primary osteoarthritis, right ankle and foot
CPT/HCPCS: 20605; 77002; J1010; Q9967

== ENCOUNTER 2024-09-07 10:51 | Day surgery (SDC) | payer OTHER, MEDICARE ==
[~2024-09-07] VITALS: Ht 170.2 cm; Wt 105.7 kg
[~2024-09-07 10:51] MED LIST changes: -ISOVUE-300 61% 100ML VIAL As Ordered ONE; -LIDOCAINE 1% MDV 20ML VIAL As Ordered ONE; +LIDOCAINE 2% 100MG/5ML SDV (FOR ANES.) As Ordered ONE; -methylPREDNISolone SUSP 40MG/ML 1ML VIAL (DEPO MEDROL) As Ordered ONE; +propofoL 500 MG/50 ML VIAL As Ordered ONE
[2024-09-07] MEDS ORDERED: fentaNYL 100 MCG/2 ML INJECTION As Ordered ONE (11:53)
[2024-09-07 12:18] VITALS: TEMP 97.4
[2024-09-07 12:41] VITALS: BP 115/77; O2SAT 95
== END 2024-09-07 12:46 | disposition home or self-care (01) ==
LOC: M OPP 10:51
PROVIDERS: ATTEND Internal Medicine Gastroenterology
DX: Z12.11 Encounter for screening for malignant neoplasm of colon (principal); Z86.0100 Personal history of colon polyps, unspecified; K64.0 First degree hemorrhoids; K57.30 Diverticulosis of large intestine without perforation or abscess without bleeding; K22.89 Other specified disease of esophagus; Z98.84 Bariatric surgery status; I10 Essential (primary) hypertension; E78.00 Pure hypercholesterolemia, unspecified; K76.0 Fatty (change of) liver, not elsewhere classified; K21.9 Gastro-esophageal reflux disease without esophagitis; D50.9 Iron deficiency anemia, unspecified; M19.90 Unspecified osteoarthritis, unspecified site; F41.9 Anxiety disorder, unspecified; F32.A Depression, unspecified; G47.30 Sleep apnea, unspecified; Z87.891 Personal history of nicotine dependence; Z79.82 Long term (current) use of aspirin; Z79.899 Other long term (current) drug therapy
CPT/HCPCS: 43239; 45378; 88305; J3010

== ENCOUNTER → 2025-03-03 | Outpatient (CLI) | payer MEDICARE, OTHER ==
[~2025-03-03] MED LIST changes: -LIDOCAINE 2% 100MG/5ML SDV (FOR ANES.) As Ordered ONE; -propofoL 500 MG/50 ML VIAL As Ordered ONE
[2025-03-03 09:52] LABS: BASO # 0.1 10^3/uL (0.0-0.2); BASO % 1.3 % (0.0-1.0); EOS # 0.2 10^3/uL (0.0-0.5); EOS % 5.9 % (0.0-3.0); LYMPH # 1.0 10^3/uL (1.5-5.0); LYMPH % 26.3 % (24.0-44.0); MONO # 0.5 10^3/uL (0.0-0.8); MONO % 12.8 % (2.0-8.0); NEUTROPHILS # 2.1 10^3/uL (1.5-8.5); NEUTROPHILS % 53.4 % (36.0-66.0); PLATELET COUNT, AUTOMATED 175 10^3/uL (150-450)
[2025-03-03 10:02] LABS: ESTIMATED AVERAGE GLUCOSE 114.0 MG/DL (60-110)
[2025-03-03 10:15] LABS: ALT/SGPT 34.0 U/L (7.0-40); AST/SGOT 26.0 U/L (<34); CALCIUM LEVEL 9.4 MG/DL (8.3-10.6); CARBON DIOXIDE LEVEL 28.0 MMOL/L (20-31); CHLORIDE LEVEL 105.0 MMOL/L (98-107); CHOLESTEROL LEVEL 213.0 MG/DL (<200); CHOLESTEROL RISK RATIO 2.84 (<5); CREATININE FOR GFR 0.93 MG/DL (0.55-1.30); GLOMERULAR FILTRATION RATE 67.8 (>45); IRON (FE) 118.0 UG/DL (50-170); LDL CHOLESTEROL 119.4 MG/DL (<100); MAGNESIUM LEVEL 2.2 MG/DL (1.8-2.4); NON-HDL-C 138.0 MG/DL; POTASSIUM SERUM 4.7 MMOL/L (3.5-5.1); SODIUM LEVEL 144.0 MMOL/L (136-145); TRIGLYCERIDES LEVEL 93.0 MG/DL (<150)
[2025-03-03 10:17] LABS: TOTAL 25(OH) VITAMIN D 23.0 NG/ML (20.0-100.0)
[2025-03-03 10:18] LABS: VITAMIN B12 LEVEL 1484.0 PG/ML (211-911)
== END ==
LOC: M LAB 08:47
PROVIDERS: ATTEND Student in an Organized Health Care Education/Training Program
DX: Z00.00 Encounter for general adult medical examination without abnormal findings (principal); D50.8 Other iron deficiency anemias; Z98.84 Bariatric surgery status; E78.2 Mixed hyperlipidemia; R10.9 Unspecified abdominal pain; Z79.899 Other long term (current) drug therapy

== ENCOUNTER → 2025-04-01 | Outpatient (CLI) | payer MEDICARE, OTHER | LOC: M RAD 07:00 | PROVIDERS: ATTEND Student in an Organized Health Care Education/Training Program | DX: R10.30 Lower abdominal pain, unspecified (principal); Z90.49 Acquired absence of other specified parts of digestive tract ==

== ENCOUNTER 2025-05-09 09:42 | Emergency (ER) | payer MEDICARE, OTHER ==
[~2025-05-09] VITALS: Ht 170.2 cm; Wt 111.6 kg
[2025-05-09 10:20] LABS: BASO # 0.1 10^3/uL (0.0-0.2); BASO % 1.4 % (0.0-1.0); EOS # 0.3 10^3/uL (0.0-0.5); EOS % 6.0 % (0.0-3.0); LYMPH # 1.1 10^3/uL (1.5-5.0); LYMPH % 22.0 % (24.0-44.0); MONO # 0.4 10^3/uL (0.0-0.8); MONO % 8.2 % (2.0-8.0); NEUTROPHILS # 3.1 10^3/uL (1.5-8.5); NEUTROPHILS % 62.0 % (36.0-66.0); PLATELET COUNT, AUTOMATED 205 10^3/uL (150-450)
[2025-05-09 10:45] LABS: ALT/SGPT 23.0 U/L (7.0-40); AST/SGOT 24.0 U/L (<34); CALCIUM LEVEL 9.2 MG/DL (8.3-10.6); CARBON DIOXIDE LEVEL 25.0 MMOL/L (20-31); CHLORIDE LEVEL 108.0 MMOL/L (98-107); CREATININE FOR GFR 0.74 MG/DL (0.55-1.30); GLOMERULAR FILTRATION RATE 89.2 (>45); POTASSIUM SERUM 4.3 MMOL/L (3.5-5.1); SODIUM LEVEL 140.0 MMOL/L (136-145)
[2025-05-09] MEDS ORDERED: GI COCKTAIL 50 ML BTL(HYOSCYAMINE/MAALOX/LIDOCAINE VISCOUS)(1:3:1) PO ONE (11:25)
[2025-05-09] MEDS: PANTOPRAZOLE 40MG VIAL IV ONE (11:49)
[2025-05-09] MEDS: GASTROGRAFIN SOLUTION 30ML PO SCH (12:03)
[2025-05-09 12:19] LABS: CK-MB VALUE MASS < 1.0 NG/ML (<3.6); CPK CREATINE PHOSPHOKINASE 97 U/L (34-145)
[2025-05-09 13:54] LABS: KETONE, URINE AUTO RFX NEGATIVE (NEGATIVE); LEUKOCYTE ESTERASE UR AUTO RFX NEGATIVE (NEGATIVE); NITRITE, URINE AUTO RFX NEGATIVE (NEGATIVE); RBC, URINE AUTO RFX 2 /HPF (0-3); SQUAM EPITHELIAL CELL UR AURFX 6 /HPF (0-6); WBC, URINE AUTO RFX 4 /HPF (0-3)
[2025-05-09] MEDS ORDERED: ISOVUE-370 76% 100 ML VIAL As Ordered ONE (13:55)
[2025-05-09 14:53] VITALS: BP 152/81; TEMP 96.8; O2SAT 97
[2025-05-09] MEDS ORDERED: CARA1TAB6 PO (15:03)
[2025-05-09] MEDS ORDERED: OMEP40CA4 PO (15:03)
== END 2025-05-09 15:13 | disposition home or self-care (01) ==
LOC: M ED 09:42
DX: R79.9 Abnormal finding of blood chemistry, unspecified (principal); R10.13 Epigastric pain; Z98.84 Bariatric surgery status; I10 Essential (primary) hypertension; K21.9 Gastro-esophageal reflux disease without esophagitis; G47.33 Obstructive sleep apnea (adult) (pediatric); K76.0 Fatty (change of) liver, not elsewhere classified; F41.9 Anxiety disorder, unspecified; F32.A Depression, unspecified; Z87.448 Personal history of other diseases of urinary system; Z86.73 Personal history of transient ischemic attack (TIA), and cerebral infarction without residual deficits; Z79.82 Long term (current) use of aspirin; Z79.899 Other long term (current) drug therapy
CPT/HCPCS: 71045; 74177; 80048; 80076; 81001; 82550; 82553; 83690; 84484; 85025; 93005; 96374; 99284; J2470; Q9963; Q9967

== ENCOUNTER → 2025-06-23 | Outpatient (CLI) | payer MEDICARE, OTHER ==
[~2025-06-23] MED LIST changes: +CARA1TAB6 PO; +ISOVUE-300 61% 100 ML VIAL As Ordered ONE; +LIDOCAINE 1% MDV 20 ML VIAL As Ordered ONE; +methylPREDNISolone SUSP 40 MG/ML 1 ML VIAL As Ordered ONE
== END ==
LOC: M RAD 15:26
PROVIDERS: ATTEND Physician Assistant
DX: M19.071 Primary osteoarthritis, right ankle and foot (principal); M19.072 Primary osteoarthritis, left ankle and foot
CPT/HCPCS: 20605; 77002; J1010; Q9967

== ENCOUNTER 2025-07-12 06:22 | Day surgery (SDC) | payer MEDICARE, OTHER ==
[~2025-07-12] VITALS: Ht 170.2 cm; Wt 112.7 kg
[~2025-07-12 06:22] MED LIST changes: +FLUO-365 PO; -ISOVUE-300 61% 100 ML VIAL As Ordered ONE; -LIDOCAINE 1% MDV 20 ML VIAL As Ordered ONE; +SUCR1ORA PO; -methylPREDNISolone SUSP 40 MG/ML 1 ML VIAL As Ordered ONE
[2025-07-12] MEDS: LR 1,000 ML IV SCH (06:40)
[2025-07-12] MEDS ORDERED: ACETAMINOPHEN 1000MG/100ML IV BAG As Ordered ONE (06:43)
[2025-07-12] MEDS ORDERED: KETOROLAC 30 MG/ML 1 ML VIAL As Ordered ONE (06:48)
[2025-07-12] MEDS ORDERED: dexAMETHasone 4 MG/ML 1 ML VIAL As Ordered ONE (06:48)
[2025-07-12] MEDS ORDERED: ROCURONIUM BROMIDE 50MG/5ML VIAL As Ordered ONE (06:48)
[2025-07-12] MEDS ORDERED: LIDOCAINE 2% 100 MG/5 ML SDV (FOR ANES.) As Ordered ONE (06:48)
[2025-07-12] MEDS ORDERED: ONDANSETRON 4MG/2ML VIAL As Ordered ONE (06:48)
[2025-07-12] MEDS ORDERED: MIDAZOLAM INJ 2 MG/2 ML VIAL As Ordered ONE (06:50)
[2025-07-12] MEDS ORDERED: SUGAMMADEX SODIUM 500 MG/5 ML VIAL As Ordered ONE (06:52)
[2025-07-12 07:21] VITALS: BP 157/80
[2025-07-12] MEDS: METOPROLOL TART 50 MG TAB PO ONE (07:21)
[2025-07-12] MEDS: ceFAZolin SOD 2 GM IV ONCE IV ONE (07:50)
[2025-07-12] MEDS: HEPARIN SOD 5000 UNITS/ML 1 ML VIAL/SYRINGE SQ ONE (07:52)
[2025-07-12] MEDS ORDERED: PHENYLephrine 500MCG 5ML (100MCG/ML) SYRINGE As Ordered ONE (08:00)
[2025-07-12] MEDS ORDERED: GLYCOPYRROLATE INJ 0.2 MG/ML 2 ML VIAL As Ordered ONE (08:12)
[2025-07-12] MEDS ORDERED: HYDROmorphone HCL 2 MG/ML 1 ML VIAL As Ordered ONE (08:38)
[2025-07-12] MEDS ORDERED: HYDROMORPHONE HCL 0.5 MG/0.5 ML SYRINGE IV PRN (10:15)
[2025-07-12] MEDS ORDERED: ONDANSETRON 4MG/2ML VIAL IV PRN (10:15)
[2025-07-12] MEDS ORDERED: LR 1,000 ML IV SCH (10:15)
[2025-07-12 13:30] VITALS: BP 139/81; TEMP 97.7; O2SAT 96
== END 2025-07-12 13:30 | disposition home or self-care (01) ==
LOC: M SDC 06:22
PROVIDERS: ATTEND Surgery
DX: K43.2 Incisional hernia without obstruction or gangrene (principal); I69.354 Hemiplegia and hemiparesis following cerebral infarction affecting left non-dominant side; Z79.899 Other long term (current) drug therapy
CPT/HCPCS: 49592; C1781; J0131; J0665; J0688; J1100; J1171; J1596; J1885; J2250; J2371; J2405; J3010; S2900